=== PATIENT | male | born 1960 | race Caucasian/White ===

== ENCOUNTER 2025-03-09 08:01 | Outpatient (OUT) | payer BC, SELFPAY ==
--- OUTSIDE RECORDS SUMMARY | 2025-03-09 08:09 | XMS_ITS | Clinical Summary ---
Author Organization [facility] Address [address], [address] [place] [address] Care Team Providers Care Fire Protection Designer Name Role Phone Sanjiv Mast DP Primary Care Provider Allergies Active Allergy Reactions Criticality Noted Date Comments Penicillins 05/04/2019 Medications celecoxib (CELEBREX) 100 MG capsule Take 1 capsule by mouth 2 times daily 60 capsule 01/15/2018 Active cyclobenzaprine (FLEXERIL) 10 MG tablet Take 5 mg by mouth 3 times daily as needed for Muscle spasms Active Social History Tobacco Use Types Packs/Day Years Used Date Smoking Tobacco: Never Smokeless Tobacco: Never Sex and Gender Information Value Date Recorded Sex Assigned at Not on file Legal Sex Male 3:59 PM EDT Gender Identity Not on file Sexual Orientation Not on file Last Filed Vital Signs Vital Sign Reading Time Taken Comments Blood Pressure - - Pulse - - Temperature 36.4 C (97.5 F) 10/31/2020 8:05 AM EDT Respiratory Rate - - Oxygen Saturation - - Inhaled Oxygen Concentration - - Weight 93 kg (205 lb) 10/31/2020 8:05 AM EDT Height 172.7 cm (5' 8 ) 10/31/2020 8:05 AM EDT Body Mass Index 31.17 10/31/2020 8:05 AM EDT Plan of Treatment Not on file Insurance [place] Care Teams Fire Protection Designer Relationship Specialty Start Date End Date Sanjiv Mast DPM [address] [place] [address] PCP - General Podiatry 01/19/17
--- OUTSIDE RECORDS SUMMARY | 2025-03-09 08:09 | XMS_ITS | Encounter Summary ---
Author Organization [facility] Address [address] [facility] [place] [address] Care Team Providers Care Pipe Processor Name Role Phone Seven Santa MD Primary Care Provider [phone] Seven Santa MD Unavailable [phone] Encounter Details Date Type Department Care Team (Late st Contact Info) Description 05/26/2024 [facility] [place] [facility] [address] [facility] 110 [place] [id number] Seven Santa MD 112 [facility] 110 [place] [address] Social History Tobacco Use Types Packs/Day Years Used Date Smoking Tobacco: Never Smokeless Tobacco: Never Alcohol Use Standard Drinks/Week Comments Yes 0 (1 standard drink = 0.6 oz pur e alcohol) Humiliation, Afraid, Rape, and Kick questionnair e Answer Date Recorded Within the last year, have y ou been afraid of your partner or ex-partner? No 06/09/2023 Within the last year, have y ou been humiliated or emotionally abused in other ways by your partner or ex-partner? No Within the last year, have y ou been kicked, hit, slapped, or otherwise physically hurt by your partner or ex-partner? No 06/09/2023 Within the last year, have y ou been raped or forced to have any kind of sexual activity by your partner or ex-partner? No 06/09/2023 Social Connection and Isolation Panel [NHANES] A nswer Date Recorded In a typical week, how many times do you talk on the phone with family, friends, or neighbors? Once a week 06/09/20 How often do you get togethe r with friends or relatives? Never 06/09/2023 How often do you attend chur ch or latter day services? 1 to 4 times per year 06/09/2023 Do you belong to any clubs o r organizations such as christian groups, unions, fraternal or athletic groups, or school groups? No 06/09/2023 How often do you attend meet ings of the clubs or organizations you belong to? Patient declined 06/09/2023 Are you , , di vorced, , never , or living with a partner? 06/09/2023 AUDIT-C Answer Date Recorded Q1: How often do you have a drink containing alc ohol? Monthly or less 11/23/2023 Q2: How many drinks containi ng alcohol do you have on a typical day when you are drinking? 1 or 2 11/23/2023 Q3: How often do you have si x or more drinks on one occasion? Never 11/23/2023 Overall Financial Resource Strain (CARDIA) Answe r Date Recorded How hard is it for you to pa y for the very basics like food, housing, medical care, and heating? Not hard at all 06/09/2023 [facility] [place] of Occupat ional Health - Occupational Stress Questionnaire Answer Date Recorded Do you feel stress - tense, restless, nervous, or anxious, or unable to sleep at night because your mind is troubled all the time - these days? Not at all 06/09/2023 Exercise Vital Sign Answer Date Recorde d On average, how many days pe r week do you engage in moderate to strenuous exercise (like a brisk walk)? 2 days 06/09/2023 On average, how many minutes do you engage in exercise at this level? 10 min 06/09/2023 Hunger Vital Sign Answer Date Recorded Within the past 12 months, y ou worried that your food would run out before you got the money to buy more. Never true 06/09/20 Within the past 12 months, t he food you bought just didn't last and you didn't have money to get more. Never true 06/09/2023 PRAPARE - Transportation Answer Date Re corded In the past 12 months, has l ack of transportation kept you from medical appointments or from getting medications? No 05/12 In the past 12 months, has l ack of transportation kept you from meetings, work, or from getting things needed for daily living? No 06/09/2023 Housing Stability Vital Sign Answer Mauro e Recorded In the last 12 months, was t here a time when you were not able to pay the mortgage or rent on time? No 06/09/2023 In the last 12 months, how many places have you lived? 1 06/09/2023 In the last 12 months, was t here a time when you did not have a steady place to sleep or slept in a jail (including now)? No 06/09/2023 Sex and Gender Information Value Date Recorded Sex Assigned at Not on file Legal Sex Male 6:40 PM EDT Gender Identity Not on file Sexual Orientation Not on file documented as of this encounter Plan of Treatment Upcoming Encounters Date Type Department Care Team (Late st Contact Info) Description 03/27/2025 1:15 PM EDT Office Visit [facility] [address] [place] [address] Saji Haywood DO [address] [place] [address] 08/07/2025 4:30 PM EST Office Visit [facility] [place] [facility] [address] [facility] 110 [place] [address] Seven Santa MD [address] [place] [address] documented as of this encounter Visit Diagnoses Not on filedocumented in this encounter Care Teams Pipe Processor Relationship Specialty Start Date End Date Seven Santa MD [address] [place] [address] PCP - General Internal Medicine 12/16/22 Seven Santa MD [address] [place] [address] PCP - [place] [employer] 11/08/24 documented as of this encounter
--- OUTSIDE RECORDS SUMMARY | 2025-03-09 08:09 | XMS_ITS | Encounter Summary ---
Author Organization [facility] Address [address] [facility] [place] [address] Care Team Providers Care Straightener And Aligner Name Role Phone Seven Santa MD Primary Care Provider [phone] Seven Santa MD Unavailable [phone] Encounter Details Date Type Department Care Team (Late st Contact Info) Description 07/06/2024 Abstract [facility] [place] [facility] [address] [facility] 110 [place] [phone] Seven Santa MD 112 [facility] 110 [place] [address] Social History Tobacco Use Types Packs/Day Years [...] often do you attend chur ch or worship services? 1 to 4 times per year 06/09/2023 Do you belong to any clubs o r organizations such as restorationist groups, unions, fraternal or athletic groups, or [...] and heating? Not hard at all 06/09/2023 [facility] [place] of Occupat ional Health - Occupational Stress [...] place to sleep or slept in a halfway (including now)? No 06/09/2023 Sex and Gender [...] Office Visit [facility] [address] [place] [address] Saji Haywood DO [address] [place] [address] 08/07/2025 4:30 PM EST Office Visit [facility] [place] [facility] [address] [email or web address] 110 [place] [address] Seven Santa MD [address] [place] [address] documented as of this encounter Visit Diagnoses Not on filedocumented in this encounter Care Teams Straightener And Aligner Relationship Specialty Start Date End Date Seven Santa MD [address] [place] [address] PCP - General Internal Medicine 12/16/22 Seven Santa MD [address] [place] [address] PCP - [place] [employer] 11/08/24 documented as of this encounter
--- OUTSIDE RECORDS SUMMARY | 2025-03-09 08:09 | XMS_ITS | Encounter Summary ---
Author Organization [facility] Address [address] [facility] [place] [address] Care Team Providers Care Development Mechanic Name Role Phone Seven Santa MD Primary Care Provider [phone] Seven Santa MD Unavailable [phone] Encounter Details Date Type Department Care Team (Late st Contact Info) Description 07/06/2024 Abstract [facility] [place] [facility] [address] [facility] 110 [place] [phone] Seven Santa MD 112 [facility] 110 [place] [address] Social History Tobacco Use Types Packs/Day Years [...] often do you attend chur ch or christianity services? 1 to 4 times per year 06/09/2023 Do you belong to any clubs o r organizations such as presybeterian groups, unions, fraternal or athletic groups, or [...] and heating? Not hard at all 06/09/2023 [facility] [place] of Occupat ional Health - Occupational Stress [...] place to sleep or slept in a skilled nursing (including now)? No 06/09/2023 Sex and Gender [...] Office Visit [facility] [address] [place] [address] Saji Haywood DO [address] [place] [address] 08/07/2025 4:30 PM EST Office Visit [facility] [place] [facility] [address] [facility] 110 [place] [address] Seven Santa MD [address] [place] [address] documented as of this encounter Visit Diagnoses Not on filedocumented in this encounter Care Teams Development Mechanic Relationship Specialty Start Date End Date Seven Santa MD [address] [place] [address] PCP - General Internal Medicine 12/16/22 Seven Santa MD [address] [place] [address] PCP - [place] [employer] 11/08/24 documented as of this encounter
--- OUTSIDE RECORDS SUMMARY | 2025-03-09 08:09 | XMS_ITS | Encounter Summary ---
Author Organization [facility] Address [address] [facility] [place] [address] Care Team Providers Care Shirt Sorter Name Role Phone Seven Santa MD Primary Care Provider [phone] Seven Santa MD Unavailable [phone] Encounter Details Date Type Department Care Team (Late st Contact Info) Description 07/06/2024 Abstract [facility] [place] [facility] [address] [facility] 110 [place] [phone] Seven Santa MD 112 [facility] 110 [place] [address] Social History Tobacco Use Types Packs/Day Years [...] often do you attend chur ch or presybeterian services? 1 to 4 times per year 06/09/2023 Do you belong to any clubs o r organizations such as cheondoism groups, unions, fraternal or athletic groups, or [...] and heating? Not hard at all 06/09/2023 [facility] [place] of Occupat ional Health - Occupational Stress [...] place to sleep or slept in a care home (including now)? No 06/09/2023 Sex and Gender [...] Office Visit [facility] [address] [place] [address] Saji Haywood DO [address] [place] [address] 08/07/2025 4:30 PM EST Office Visit [facility] [place] [facility] [address] [facility] [address] [place] [address] Seven Santa MD [address] [place] [address] documented as of this encounter Visit Diagnoses Not on filedocumented in this encounter Care Teams Shirt Sorter Relationship Specialty Start Date End Date Seven Santa MD [address] [place] [address] PCP - General Internal Medicine 12/16/22 Seven Santa MD [address] [place] [address] PCP - [place] [employer] 11/08/24 documented as of this encounter
--- OUTSIDE RECORDS SUMMARY | 2025-03-09 08:09 | XMS_ITS | Clinical Summary ---
Author Organization 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 2 Active levothyroxine (SYNTHROID) 137 mcg tablet TAKE 1 TABLET BY MOUTH EVERY DAY IN THE MORNING ON EMPTY STOMACH 2 Active folic acid/multivit-min/ lutein (CENTRUM SILVER ORAL) Take by mouth once daily. Active KRILL OIL ORAL Take 1,000 mg by mouth once daily. Active alpha lipoic acid 600 mg tabIndications:Fac et syndrome, lumbar,Radiculopat hy, lumbosacral region,History of renal stone,Other hypothyroidism take 1 tab po every day with food 30 tablet 11 3 Active turmeric root extract 500 mg capIndications:Fac et syndrome, lumbar,Radiculopat hy, lumbosacral region,History of renal stone,Other hypothyroidism TAKE 1 CAPSULE BY MOUTH TWICE DAILY FOR 7 DAYS,THEN 2 CAPSULES TWICE DAILY IF TOLERATED 120 capsule 11 4 Active Active Problems Problem Noted Date Diagnosed Date Facet syndrome, lumbar 02/24/2022 Radiculopathy, lumbosacral region 02/24/2022 Lumbosacral spondylosis without myelopathy 02/24 Social History Tobacco Use Types Packs/Day Years Used Date Smoking Tobacco: Never Smokeless Tobacco: Never Alcohol Use Standard Drinks/Week Comments Never 0 (1 standard drink = 0.6 oz pur e alcohol) Area Deprivation Index Answer Date Lavon rded National Score (1-100), lower number is lower ri sk 65 01/15/2023 State Score (1-10), lower number is lower risk 5 01/15/2023 Data from: https://www.neighborhoodatlas.medicine.[facility]/. Last address used for calculation [address] 01/15/2023 Sex and Gender Information Value Date Recorded Sex Assigned at Not on file Legal Sex Male 10:13 AM EDT Gender Identity Not on file Sexual Orientation Not on file Last Filed Vital Signs Vital Sign Reading Time Taken Comments Blood Pressure 123/85 09/01/2022 9:30 AM EST Pulse 83 11/27/2022 4:06 PM EDT Temperature 36.3 C (97.4 F) 09/01/2022 9:10 AM EST Respiratory Rate 17 11/27/2022 4:06 PM EDT Oxygen Saturation 97% 11/27/2022 4:06 PM EDT Inhaled Oxygen Concentration - - Weight 87.5 kg (193 lb) 11/27/2022 4:06 PM EDT Height - - Body Mass Index - - Plan of Treatment Health Maintenance Due Date Last Done Comments Anxiety Screening 1977 Depression Screening 1977 HIV Screening 1977 Hepatitis C Screening 1977 CT Colonography 2004 Colonoscopy 2004 Fecal Occult Blood 2004 Sigmoidoscopy 2004 Pneumococcal Vaccine: 50+ (2 of 2 - PCV) 08/20/2017 08/20/2016 Cologuard (FIT-DNA) 10/09/2023 10/08/2020 Colorectal Cancer Screening 10/09/2023 Advance Directive Discussion 08/10/2024 Influenza Vaccine (#1) 2025 , 07/06/2019, 05/19/2018, Additional history exists Diabetes Screening 05/07/2025 05/07/2022, 01/02/2020 Lipid Screening 06/15/2028 06/15/2023 Prostate Cancer Screening Discussion 06/15/2028 06/15/2023 DTaP,Tdap,Td Vaccine (4 - Td or Tdap) 05/04/2033 05/04/2023, 09/28/2017, 03/04/2017 RSV Vaccine (1 - 1-dose 75+ series) 2034 Shingrix Vaccine Completed 08/21/2019, 08/2018, 11/15/2016 Insurance BLUE CARD PPO OOS Care Teams Mechanical Specialist Relationship Specialty Start Date End Date Seven Santa II, MD [address] [facility] 110 [place] [address] PCP - General Internal Medicine 12/27/21
--- OUTSIDE RECORDS SUMMARY | 2025-03-09 08:09 | XMS_ITS | Encounter Summary ---
Author Organization [facility] Address [address] [address] Care Team Providers Care Rail Car Repairer Name Role Phone Seven Santa MD Primary Care Provider [phone] Encounter Details Date Type Department Care Team (Late st Contact Info) Description 02/22/2025 Telephone [facility] [address] [place] [address] Mi Quiroz MA Social History Tobacco Use Types Packs/Day Years Used Date Smoking Tobacco: Never Smokeless Tobacco: Never Alcohol Use Standard Drinks/Week Comments Yes 0 (1 standard drink = 0.6 oz pur e alcohol) weekends in summer Sex and Gender Information Value Date Recorded Sex Assigned at Male 02/15/2025 11:52 AM EDT Legal Sex Male 4:16 PM EDT Gender Identity Male 02/15/2025 11:52 AM EDT Sexual Orientation Heterosexual or Straight 04/2025 11:52 AM EDT documented as of this encounter Miscellaneous Notes * Telephone Encounter - Mi Quiroz MA - 02/23/2025 1:43 PM EDT Patient made aware. * Telephone Encounter - Mi Quiroz MA - 02/22/2025 8:37 AM EDT Patient called and said he forgot to ask you yesterday what you thought about him possibly startingCialis. He's been discussing options with his PCP but wanted to see what your thoughts were. I toldhim you may want to wait and see what his stress test shows first, but I'd ask. Please advise. Thanks. documented in this encounter Plan of Treatment Not on file documented as of this encounter Visit Diagnoses Not on filedocumented in this encounter Care Teams Rail Car Repairer Relationship Specialty Start Date End Date Seven Santa MD [address] [facility] 110 [place] [address] PCP - General Internal Medicine 02/15/25 documented as of this encounter
--- OUTSIDE RECORDS SUMMARY | 2025-03-09 08:09 | XMS_ITS | Clinical Summary ---
Author Organization [facility] [place] [facility] tem Address [id number] [address] [place] [address] Care Team Providers Care Program Director Cable Television Name Role Phone Seven Santa MD Primary Care Provider [phone] Allergies Active Allergy Reactions Criticality Noted Date Comments Penicillins 01/02/2020 Medications levothyroxine (SYNTHROID, LEVOTHROID) 125 MCG tablet Take 137 mcg by mouth daily. Active celecoxib (CeleBREX) 200 mg capsule Take 1 capsule by mouth 2 (two) times a day. 10/04/2020 Active folic acid/multivit-m in/lutein (CENTRUM SILVER ORAL) Take by mouth. Active KRILL OIL ORAL Take 1,000 mg by mouth daily. Active cholecalciferol , vitamin D3, (VITAMIN D3) 2,000 units capsule Take 2,000 Units by mouth daily. Active tiZANidine (ZANAFLEX) 4 mg tablet 1/2-1 tablet as needed 08/06/2021 Active Active Problems Problem Noted Date Diagnosed Date Hyperplastic polyp of sigmoid colon 11/19/2020 Diverticulosis large intesti ne w/o perforation or abscess w/o bleeding 11/19/2020 Positive colorectal cancer screening using Colog uard test 10/25/2020 Encounters Date Type Department Care Team Description 02/07/2025 8:30 AM EDT - 02/07/2025 11:59 PM EDT Hospital Encounter [facility] [address] [place] [id number] Elevated blood pressure reading without diagnosis of hypertension; Newly recognized murmur Discharge Disposition: Home 02/07/2025 Travel from Last 3 Months Family History Medical History Relation Name Comments Asthma Brother Edwar Win No Known Problems Daughter 1 No Known Problems Daughter 2 No Known Problems Daughter 3 No Known Problems Daughter 4 Heart disease Father Thyroid disease Father Coronary artery disease Mother Glaucoma Mother Heart disease Mother Hyperlipidemia Mother Relation Name Status Comments [place] Win Alive Daughter 1 Alive Daughter 2 Alive Daughter 3 Alive Daughter 4 Alive Father Alive Mother Sister Alive Social History Tobacco Use Types Packs/Day Years Used Date Smoking Tobacco: Never Smokeless Tobacco: Never Alcohol Use Standard Drinks/Week Comments Yes 0 (1 standard drink = 0.6 oz pur e alcohol) socially on weekends only Childcare Answer Date Recorded Childcare Unknown 01/19/2019 Employment Answer Date Recorded Employment Unknown 01/19/2019 Purpose - Life Answer Date Recorded Purpose and direction in life Unknown Sex and Gender Information Value Date Recorded Sex Assigned at Not on file Legal Sex Male 11:37 AM EDT Gender Identity Not on file Sexual Orientation Not on file Last Filed Vital Signs Vital Sign Reading Time Taken Comments Blood Pressure 137/88 05/07/2022 12:00 PM EDT Pulse 69 05/07/2022 12:00 PM EDT Temperature 37 C (98.6 F) 05/07/2022 8:41 AM EDT Respiratory Rate 11 05/07/2022 12:00 PM EDT Oxygen Saturation 98% 05/07/2022 12:00 PM EDT Inhaled Oxygen Concentration - - Weight 88.5 kg (195 lb) 05/07/2022 8:28 AM EDT Height 172.7 cm (5' 8 ) 05/07/2022 8:28 AM EDT Body Mass Index 29.65 05/07/2022 8:28 AM EDT Plan of Treatment Health Maintenance Due Date Last Done Comments Depression Screening 1972 Tobacco Screening 1972 Adult BMI Screening 05/07/2023 05/07/2022 COVID-19 Vaccine (2023- 5 season) 2024 08/30/2021, 11/16/2020, 10/19/2020 Fall Risk Screening 2024 Influenza Vaccine 04/10/2025 05/20/2021, , 05/19/2018, Additional history exists Colonoscopy 11/12/2030 11/12/2020, 11/12/2020 DTaP,Tdap and Td Vaccines (4 - Td or Tdap) 05/04/2033 05/04/2023, 09/28/2017, 03/04/2017 Zoster (Shingles) Vaccine Completed 2019, 07/10/2019, 11/15/2016 Medical Devices Implanted Type Area Watch And Clock Repair Clerk Device Identifier Shelf Expiration Date Model / Serial / Lot Mesh 3in Lg Pp Srgpro Nabsb Knit Plg Srg Strl Clr Hrn Rpl [id number] - [id number] - [id number] Implanted:Qty: 1 on 06/03/2021 by Graham Hanson MD at [facility] Mesh Left: Abdomen [employer] [facility] 01/07/2026 SMPL-01 / [id number] / [id number] Mesh 4.7x3in Plstr Parietex Progrip Lt Flp Slf Fx - [id number] - [id number] Implanted:Qty: 1 on 06/03/2021 by Graham Hanson MD at [facility] Mesh Left: Abdomen [employer] [facility] 04/09/2025 [id number] / [id number] / [id number] Procedures Procedure Name Priority Date/Time Associated Diagnosis Comments ECHO COMPLETE WO CONTRAST Routine 02/07/2025 9:09 AM EDT Elevated blood pressure reading without diagnosis of hypertension Newly recognized murmur from Last 3 Months Results * Echo complete W/O contrast (02/07/2025 9:09 AM EDT) LVOT stroke volume 67.66 ml XCELERA LV Systolic Volume 43.60 mL XCELERA EF 62 % XCELERA FS 30 28 - 44 % XCELERA LV Diastolic Volume 116.00 mL XCELERA LVIDd 4.40 cm XCELERA LVIDs 3.10 cm XCELERA IVS 1.20 0.6 - 1.1 cm XCELERA PW 1.20 0.6 - 1.1 cm XCELERA LVOT diameter 2.20 cm XCELERA TDI 9.36 cm/s XCELERA MV TDI E' (medial) 6.20 cm/s XCELERA LA Volume Index 25.5 mL/m2 XCELERA E/A ratio 1.14 XCELERA E wave deceleration time 201.00 msec XCELERA MV Peak E Maverick 66.50 cm/s XCELERA MV Peak A Maverick 58.20 cm/s XCELERA LA size 3.50 cm XCELERA Aortic root 3.70 cm XCELERA LA volume 52.50 cm3 XCELERA RV diastolic dimension (basal) 33.0 mm XCELERA RVID d 3.7 cm XCELERA TAPSE 2.20 cm XCELERA AV peak maverick 280.00 cm/s XCELERA LVOT peak maverick 0.78 m/s XCELERA AV VTI 64.10 cm XCELERA LVOT peak VTI 17.80 cm XCELERA AV mean gradient 16.00 mmHg XCELERA AV peak gradient 31.00 mmHg XCELERA AV valve area 1.06 cm2 XCELERA Valve area - Index 0.5 XCELERA MV pressure 1/2 time 59.00 ms XCELERA MV valve area p 1/2 method 3.73 cm2 XCELERA TR Peak Maverick 1.8 m/s XCELERA TR peak gradient 13.40 mmHg XCELERA PV mean gradient 3.00 mmHg XCELERA PV peak gradient 5.66 mmHg XCELERA LV ESV A2C 64.90 mL XCELERA LV ESV A4C 38.70 mL XCELERA LV RWT 2D 54.55 XCELERA Echo EF Estimated 62 % XCELERA AV Velocity Ratio 0.29 XCELERA Left Ventricle Mass 191.88860 462423198 8 g XCELERA Interventricular Septum Diastolic Thickness by 2D 12 cm XCELERA Left ventricular stroke volume 68.00 cc XCELERA TR max maverick 1.80 m/s XCELERA E/E' ratio 8.50 XCELERA MV E' average 7.8 cm/s XCELERA Est. RA pressure 3 mmHg XCELERA RA area 12.8 cm2 XCELERA PM CV 2.0 ECHO AV LLUVIA (CONTINUITY EQUATION) 1.0 cm2 XCELERA Anatomical Region Laterality Modality Chest N/A Ultrasound Narrative 02/07/2025 11:04 AM EDT Left Ventricle: Left ventricle appears normal in size. Systolic function is normal with an ejection fraction of 60-65%. The quantitative EF by 2D Lewis biplane is 62%. Normal diastolic function is present. Right Ventricle: Right ventricular size appears normal. Systolic function is normal. Aortic Valve: The aortic valve is trileaflet. The leaflets are moderately calcified. There is mild regurgitation. There is mild stenosis. The calculated aortic valve area is 1.06 cm2. The calculated aortic valve peak gradient is 31.00 mmHg. The calculated aortic valve mean gradient is 16.00 mmHg. Tricuspid Valve: There is trace to mild regurgitation. There is no evidence of tricuspid valve stenosis. Aorta: The ascending aorta is mildly dilated (4.1 cm). Left Ventricle Left ventricle appears normal in size. There is mild concentric increased wall thickness/hypertrophy. Systolic function is normal with an ejection fraction of 60-65%. The quantitative EF by 2D Lewis biplane is 62%. No obvious regional wall motion abnormalities. Normal diastolic function is present. Lateral E' is 9.36 cm/s. Medial E' is 6.20 cm/s. Average E' is 7.8 cm/s. Right Ventricle Right ventricular size appears normal. The right ventricular basal diameter is 33.0 mm. Systolic function is normal. Normal tricuspid annular plane systolic excursion. Normal systolic excursion velocity by TDI (>9.5 cm/s). Left Atrium Left atrium volume index is normal. The left atrial volume index is 25.5 mL/m2. Right Atrium Right atrium is normal in size. The right atrial area is 12.8 cm2. IVC/SVC The right atrial pressure is estimated at 3 mmHg. There is normal collapse with deep inspiration. Mitral Valve The leaflets are moderately thickened. There is trace regurgitation. There is no evidence of mitral valve stenosis. Tricuspid Valve Tricuspid valve appears to be normal. There is trace to mild regurgitation. There is no evidence of tricuspid valve stenosis. Insufficient regurgitant jet to assess right ventricular systolic pressure. RVSP is based on RA pressure of 3 mmHg. Aortic Valve The aortic valve is trileaflet. The leaflets are moderately calcified. There is mild regurgitation. There is mild stenosis. The calculated aortic valve area is 1.06 cm2. The calculated aortic valve peak gradient is 31.00 mmHg. The calculated aortic valve mean gradient is 16.00 mmHg. RCC excursion is moderately reduced. Pulmonic Valve The pulmonic valve was not well visualized. Pulmonic valve structure is grossly normal. There is trace regurgitation. There is no evidence of pulmonic valve stenosis. The peak gradient is 5.66 mmHg. The mean gradient is 3.00 mmHg. Ascending Aorta The ascending aorta is mildly dilated (4.1 cm). Pericardium The pericardium has a fat pad. Study Details A complete echo was performed using complete 2D, color flow Doppler and spectral Doppler. Overall the study quality was adequate. BP 141/91 Wall Scoring Baseline Score Index: 1.00 The left ventricular wall motion is normal. us Maria De Jesus LAWRENCE CV ECHO ORDERABLES Final Result from Last 3 Months Insurance [address] [place] [address] ANTHEM Care Teams Program Director Cable Television Relationship Specialty Start Date End Date Seven Santa MD 112 [facility] [address] [place] [address] PCP - General Internal Medicine 05/21/21
--- OUTSIDE RECORDS SUMMARY | 2025-03-09 08:09 | XMS_ITS | Encounter Summary ---
Author Organization [facility] Address [address] [facility] [place] [address] Care Team Providers Care Diabetes Trainer Name Role Phone Seven Santa MD Primary Care Provider [phone] Seven Santa MD Unavailable [phone] Encounter Details Date Type Department Care Team (Late st Contact Info) Description 07/06/2024 Abstract [facility] [place] [facility] [address] [facility] 110 [place] [phone] Seven Santa MD 112 [facility] 110 [place] [address] Social History Tobacco Use Types Packs/Day Years [...] often do you attend chur ch or spiritism services? 1 to 4 times per year 06/09/2023 Do you belong to any clubs o r organizations such as muslim groups, unions, fraternal or athletic groups, or [...] and heating? Not hard at all 06/09/2023 [facility] [place] of Occupat ional Health - Occupational Stress [...] place to sleep or slept in a intermediate (including now)? No 06/09/2023 Sex and Gender [...] Office Visit [facility] [address] [place] [address] Saji Haywood DO [address] [place] [address] 08/07/2025 4:30 PM EST Office Visit [facility] [place] [facility] [address] [facility] [address] [place] [address] Seven Santa MD [address] [place] [address] documented as of this encounter Visit Diagnoses Not on filedocumented in this encounter Care Teams Diabetes Trainer Relationship Specialty Start Date End Date Seven Santa MD [address] [place] [address] PCP - General Internal Medicine 12/16/22 Seven Santa MD [address] [place] [address] PCP - [employer] 11/08/24 documented as of this encounter
--- OUTSIDE RECORDS SUMMARY | 2025-03-09 08:09 | XMS_ITS | Encounter Summary ---
Author Organization [facility] Address [address] [facility] [place] [address] Care Team Providers Care Insurance Marketing Rep Name Role Phone Seven Santa MD Primary Care Provider [phone] Seven Santa MD Unavailable [phone] Encounter Details Date Type Department Care Team (Late st Contact Info) Description 11/17/2023 Abstract [facility] [place] [facility] [address] [facility] 110 [place] [phone] Seven Santa MD 112 [facility] 110 [place] [address] Social History Tobacco Use Types Packs/Day Years Used Date Smoking Tobacco: Never Assessed Humiliation, Afraid, Rape, and Kick questionnair e [...] friends, or neighbors? Once a week 06/09/20 23 How often do you get togethe r with friends or relatives? Never 06/09/2023 How often do you attend chur ch or zoroastrian services? 1 to 4 times per year 06/09/2023 Do you belong to any clubs o r organizations such as anglican groups, unions, fraternal or athletic groups, or school groups? No 06/09/2023 How often do you attend meet ings of the clubs or organizations you belong to? Patient declined 06/09/2023 Are you , , di vorced, , never , or living with a partner? 06/09/2023 AUDIT-C Answer Date Recorded Q1: How often do you have a drink containing alc ohol? Monthly or less 06/09/2023 Q2: How many drinks containi ng alcohol do you have on a typical day when you are drinking? 3 or 4 06/09/2023 Q3: How often do you have si x or more drinks on one occasion? Never 06/09/2023 Overall Financial Resource Strain (CARDIA) Answe r Date Recorded How hard is it for you to pa y for the very basics like food, housing, medical care, and heating? Not hard at all 06/09/2023 [facility] of Occupat ional Health - Occupational Stress [...] money to buy more. Never true 06/09/20 23 Within the past 12 months, t he [...] place to sleep or slept in a mcc (including now)? No 06/09/2023 Sex and Gender Information Value Date Recorded Sex Assigned at Not on file Legal Sex Male 6:40 PM EDT Gender Identity Not on file Sexual Orientation Not on file documented as of this encounter Plan of Treatment Upcoming Encounters Date Type Department Care Team (Late st Contact Info) Description 03/27/2025 1:15 PM EDT Office Visit [facility] [address] [place] [address] Saji Haywood, DO [address] [place] [address] 08/07/2025 4:30 PM EST Office Visit [facility] [address] [facility] [address] [place] [address] Seven Santa MD [address] [facility] 110 [place] [address] documented as of this encounter Visit Diagnoses Not on filedocumented in this encounter Care Teams Insurance Marketing Rep Relationship Specialty Start Date End Date Seven Santa MD [address] [place] [address] PCP - General Internal Medicine 12/16/22 Seven Santa MD [address] [place] [address] PCP - [place] [employer] 11/08/24 documented as of this encounter
--- OUTSIDE RECORDS SUMMARY | 2025-03-09 08:10 | XMS_ITS | Encounter Summary ---
Author Organization [facility] Address [address] [place] [address] Care Team Providers Care Tunnel Heading Inspector Name Role Phone Seven Santa MD Primary Care Provider [phone] Seven Santa MD Unavailable [phone] Encounter Details Date Type Department Care Team (Late st Contact Info) Description 01/30/2025 External Result Encounter [facility] External Department Unsolicited Saji Haywood, DO [address] [place] [address] Social History Tobacco Use Types Packs/Day Years Used Date Smoking Tobacco: Never Smokeless Tobacco: Never Alcohol Use Standard Drinks/Week Comments Yes 0 (1 standard drink = 0.6 oz pur e alcohol) B1300 Health Literacy Answer Date Recor ded How often do you need to hav e someone help you when you read instructions, pamphlets, or other written material from your doctor or pharmacy? Never 09/14/2024 Humiliation, Afraid, Rape, and Kick questionnair e [...] or ex-partner? No 06/09/2023 Social Connection and Isolat ion Panel [NHANES] Answer Date Recorded In a typical week, how many times do you talk on the phone with family, friends, or neighbors? More than three times a week 09/14/2024 How often do you get togethe r with friends or relatives? Once a week 09/14/2024 How often do you attend chur or buddhism services? Patient declined 09/14/2024 Do you belong to any clubs o r organizations such as orthodox groups, unions, fraternal or athletic groups, or school groups? No 09/14/2024 How often do you attend meet ings of the clubs or organizations you belong to? Never 09/14/2024 Are you , , di vorced, , never , or living with a partner? 09/14/2024 AUDIT-C Answer Date Recorded Q1: How often do you have a drink containing alc ohol? Monthly or less 09/14/2024 Q2: How many drinks containi ng alcohol do you have on a typical day when you are drinking? 1 or 2 09/14/2024 Q3: How often do you have si x or more drinks on one occasion? Never 09/14/2024 Overall Financial Resource Strain (CARDIA) Answe r Date Recorded How hard is it for you to pa y for the very basics like food, housing, medical care, and heating? Not hard at all 09/14/2024 PHQ-2 Answer Date Recorded Patient Health Questionnaire-2 Score 0 01/10/2025 [facility] of Occupat ional [facility] - Occupational Stress Questionnaire Answer Date Recorded Do you feel stress - tense, restless, nervous, or anxious, or unable to sleep at night because your mind is troubled all the time - these days? Not at all 09/14/2024 Exercise Vital Sign Answer Date Recorde d On average, how many days pe r week do you engage in moderate to strenuous exercise (like a brisk walk)? 5 days On average, how many minutes do you engage in exercise at this level? Patient declined 09/14/2024 Hunger Vital Sign Answer Date Recorded Within the past 12 months, y ou worried that your food would run out before you got the money to buy more. Never true 09/14/19 25 Within the past 12 months, t he food you bought just didn't last and you didn't have money to get more. Never true 09/14/2024 PRAPARE - Transportation Answer Date Re corded In the past 12 months, has l ack of transportation kept you from medical appointments or from getting medications? No 12/2024 In the past 12 months, has l ack of transportation kept you from meetings, work, or from getting things needed for daily living? No 09/14/2024 Housing Stability Vital Sign Answer Mauro e [...] place to sleep or slept in a prison (including now)? No 06/09/2023 Housing Stability Vital Sign Answer Mauro e Recorded In the last 12 months, was t here a time when you were not able to pay the mortgage or rent on time? No 09/14/2024 In the past 12 months, how m any times have you moved where you were living? 0 09/14/2024 At any time in the past 12 m [facility], were you homeless or living in a prison (including now)? No 09/14/2024 Sex and Gender Information Value Date Recorded Sex Assigned at Not on file Legal Sex Male 6:40 PM EDT Gender Identity Not on file Sexual Orientation Not on file documented as of this encounter Plan of Treatment Upcoming Encounters Date Type Department Care Team (Late st Contact Info) Description 03/27/2025 1:15 PM EDT Office Visit [facility] [address] [place] [address] Saji Haywood, DO [address] [place] [address] 08/07/2025 4:30 PM EST Office Visit [facility] [address] [place] [place] [address] Seven Santa MD 112 [facility] 110 [place] [address] documented as of this encounter Procedures Procedure Name Priority Date/Time Associated Diagnosis Comments ECG 12-LEAD 01/30/2025 10:29 AM EDT documented in this encounter Results * ECG 12 lead (01/30/2025 10:29 AM EDT) 01/30/2025 10:2 9 AM EDT [facility] 01/30/2025 2:12 PM EDT [address] [address] Electrocardiograph Report Signed Patient: Tripp Win MR#: [id number] : 1960 Acct:[id number] Age/Sex: 64 / M ADM Date: 01/30/25 Loc: Room: Type: [facility] Attending Dr: Saji Haywood DO Ordering Provider: Saji Haywood DO Date of Service: 01/30/25 ECG/ECG 12 lead ECG: surgery 02/13 Copies to: Test Reason : Blood Pressure : */* mmHG Vent. Rate : 84 BPM Atrial Rate : 84 BPM P-R Int : 146 ms QRS Dur : 84 ms QT Int : 336 ms P-R-T Axes : 66 51 49 degrees QTcB Int : 397 ms Normal sinus rhythm Normal ECG When compared with ECG of 30-Mar-2017 09:25, No significant change was found Confirmed by Daniel Borjas ([id number]) on 01/30/2025 2:12:17 PM Referred By: Electronically Signed By: Daniel Borjas Transcribed By: MUS Signed By Daniel Borjas MD 01/30/25 1412 Procedure Note Korey Borjas MD - 01/30/[address] [address] Electrocardiograph Report Signed Patient: Tripp Win AMR#: [id number] : [id number]:[id number] Age/Sex: 64 / MADM Date: 01/30/25 Loc: PS Room:Type: [facility] Attending Dr: Saji Haywood DO Ordering Provider: Saji Haywood DO Date of Service: 01/30/25 ECG/ECG 12 lead ECG: surgery 02/13 Copies to: Test Reason : Blood Pressure : */* mmHG Vent. Rate : 84 BPM Atrial Rate : 84 BPM P-R Int : 146 ms QRS Dur : 84 ms QT Int : 336 ms P-R-T Axes : 66 51 49 degrees QTcB Int : 397 ms Normal sinus rhythm Normal ECG When compared with ECG of 30-Mar-2017 09:25, No significant change was found Confirmed by Daniel Borjas ([id number]) on 01/30/2025 2:12:17 PM Referred By: Electronically Signed By: Daniel Borjas Transcribed By: MUS Signed By Daniel Borjas MD 01/30/25 1412 us Saji Haywood DO ECG ORDERABLES Final Resul t [address] [address], documented in this encounter Visit Diagnoses Not on filedocumented in this encounter Care Teams Tunnel Heading Inspector Relationship Specialty Start Date End Date Seven Santa MD [address] [place] [address] PCP - General Internal Medicine 12/16/22 Seven Santa MD [address] [place] [address] PCP - [place] [employer] 11/08/24 documented as of this encounter
--- OUTSIDE RECORDS SUMMARY | 2025-03-09 08:10 | XMS_ITS | Encounter Summary ---
Author Organization [facility] Address [address] [facility] [place] [address] Care Team Providers Care Building Cleaner Name Role Phone Seven Santa MD Primary Care Provider [phone] Seven Santa MD Unavailable [phone] Encounter Details Date Type Department Care Team (Late st Contact Info) Description 07/12/2024 Abstract [facility] [place] [facility] [address] [facility] 110 [place] [address] Seven Santa MD 112 [facility] 110 [place] [address] Social History Tobacco Use Types Packs/Day Years [...] any clubs o r organizations such as sabianist groups, unions, fraternal or athletic groups, or [...] and heating? Not hard at all 06/09/2023 [facility] [place] of Occupat ional Health - Occupational Stress [...] place to sleep or slept in a long-term (including now)? No 06/09/2023 Sex and Gender [...] Office Visit [facility] [address] [place] [address] Saji Haywood DO [address] [place] [address] 08/07/2025 4:30 PM EST Office Visit [facility] [place] [facility] [address] [facility] [address] [place] [address] Seven Santa MD [address] [place] [address] documented as of this encounter Visit Diagnoses Not on filedocumented in this encounter Care Teams Building Cleaner Relationship Specialty Start Date End Date Seven Santa MD [address] [place] [address] PCP - General Internal Medicine 12/16/22 Seven Santa MD [address] [place] [address] PCP - [place] [employer] 11/08/24 documented as of this encounter
--- OUTSIDE RECORDS SUMMARY | 2025-03-09 08:10 | XMS_ITS | Encounter Summary ---
Author Organization [facility] Address [address] [facility] [place] [address] Care Team Providers Care Assembler Dc Field Ring Name Role Phone Seven Santa MD Primary Care Provider [phone] Seven Santa MD Unavailable [phone] Encounter Details Date Type Department Care Team (Late st Contact Info) Description 12/07/2024 Abstract [facility] [place] [facility] [address] [facility] 110 [place] [id number] Seven Santa MD [address] [facility] 110 [place] [address] Social History Tobacco Use Types Packs/Day Years [...] week 09/14/2024 How often do you attend [facility] or [facility] services? Patient declined 09/14/2024 Do you belong to any clubs o r organizations such as amish groups, unions, fraternal or athletic groups, or [...] Date Recorded Patient Health Questionnaire-2 Score 0 12/08/2024 [facility] - Occupational Stress Questionnaire Answer Date [...] place to sleep or slept in a group home (including now)? No 06/09/2023 Housing Stability Vital Sign Answer Mauro e Recorded In the last 12 months, was t here a time when you were not able to pay the mortgage or rent on time? No 09/14/2024 In the past 12 months, how m any times have you moved where you were living? 0 09/14/2024 At any time in the past 12 [facility], were you homeless or living in a group home (including now)? No 09/14/2024 Sex and Gender Information Value Date Recorded Sex Assigned at Not on file Legal Sex Male 6:40 PM EDT Gender Identity Not on file Sexual Orientation Not on file documented as of this encounter Functional Status * Over the past 2 weeks, how often have you been bothered by any of the following problems? Question Answer Date of Assessment Author Little interest or pleasure in doing things Not at all 12/08/2024 8:31 AM ERMIAS MARTINS Feeling down, depressed, or hopeless Not at all 08/2024 8:31 AM ERMIAS MARTINS Patient Health Questionnaire-2 Score 0 08/2024 8:31 AM ERMIAS MARTINS documented as of this encounter Plan of Treatment Upcoming Encounters Date Type Department Care Team (Late st Contact Info) Description 03/27/2025 1:15 PM EDT Office Visit [facility] [address] [place] [address] Saji Haywood, [address] [place] [address] 08/07/2025 4:30 PM EST Office Visit [facility] [place] [facility] [address] [facility] 110 [place] [address] Seven Santa MD [address] [facility] 110 [place] [address] documented as of this encounter Visit Diagnoses Not on filedocumented in this encounter Care Teams Assembler Dc Field Ring Relationship Specialty Start Date End Date Seven Santa MD [address] [facility] 110 [place] [address] PCP - General Internal Medicine 12/16/22 Seven Santa MD [address] [facility] 110 [place] [address] PCP - Beata [employer] 11/08/24 documented as of this encounter
--- OUTSIDE RECORDS SUMMARY | 2025-03-09 08:10 | XMS_ITS | Encounter Summary ---
Author Organization [facility] Address [address] [place] [address] Care Team Providers Care Manager Speech Name Role Phone Kiet VALDES MD, Seven Antony Primary Care Provider [phone] Source Comments In the event this information is protected by the Federal Confidentiality of Alcohol and Drug AbusePatient Records regulations: The Federal rules restrict any use of the information to criminally investigate or prosecute any alcohol or drug abuse patient.[facility] Encounter Details Date Type Department Care Team (Late st Contact Info) Description 07/21/2022 Patient Msg Ambulatory Surgery [address] [place], [place] [id number] Saji Gallagher MD [address] [place] [address] [address] [place], [place] [id number] Social History Tobacco Use Types Packs/Day Years Used Date Smoking Tobacco: Never Smokeless Tobacco: Never Alcohol Use Standard Drinks/Week Comments Never 0 (1 standard drink = 0.6 oz pur e alcohol) Area Deprivation Index Answer Date Lavon rded National Score (1-100), lower number is lower ri sk 53 01/20/2022 State Score (1-10), lower number is lower risk N ot on file 01/20/2022 Data from: https://www.neighborhoodatlas.[facility]/. Last address used for calculation [address] [place] [address] [address] 01/20/2022 Sex and Gender Information Value Date Recorded Sex Assigned at Not on file Legal Sex Male 10:13 AM EDT Gender Identity Not on file Sexual Orientation Not on file COVID-19 Exposure Response Date Recorded In the last 10 days, have yo u been in contact with someone who was confirmed or suspected to have Coronavirus/COVID-19? No / Unsure 07/01/2022 2:17 PM EST documented as of this encounter Plan of Treatment Not on file documented as of this encounter Visit Diagnoses Not on filedocumented in this encounter Care Teams Manager Speech Relationship Specialty Start Date End Date Seven Santa II, MD [address] [facility] 110 [place] [address] PCP - General Internal Medicine 12/27/21 documented as of this encounter
--- OUTSIDE RECORDS SUMMARY | 2025-03-09 08:10 | XMS_ITS | Encounter Summary ---
Author Organization [facility] Address [address] [facility] [place] [address] Care Team Providers Care Construction Project Engineer Name Role Phone Seven Santa MD Primary Care Provider [phone] Seven Santa MD Unavailable [phone] Encounter Details Date Type Department Care Team (Late st Contact Info) Description 12/01/2024 Abstract [facility] [place] [facility] [address] [facility] 110 [place] [phone] Seven Santa MD 112 [facility] 110 [place] [address] Social History Tobacco Use Types Packs/Day Years [...] week 09/14/2024 How often do you attend [facility] or protestant services? Patient declined 09/14/2024 Do you belong to any clubs o r organizations such as congregation groups, unions, fraternal or athletic groups, or [...] Date Recorded Patient Health Questionnaire-2 Score 0 09/14/2024 [facility] Health - Occupational Stress Questionnaire Answer Date [...] place to sleep or slept in a custodial (including now)? No 06/09/2023 Housing Stability Vital Sign Answer Mauro e Recorded In the last 12 months, was t here a time when you were not able to pay the mortgage or rent on time? No 09/14/2024 In the past 12 months, how m any times have you moved where you were living? 0 09/14/2024 At any time in the past 12 m [facility], were you homeless or living in a custodial (including now)? No 09/14/2024 Sex and Gender Information Value Date Recorded Sex Assigned at Not on file Legal Sex Male 6:40 PM EDT Gender Identity Not on file Sexual Orientation Not on file documented as of this encounter Plan of Treatment Upcoming Encounters Date Type Department Care Team (Late st Contact Info) Description 03/27/2025 1:15 PM EDT Office Visit [facility] [place] [facility] [address] [place] [phone] Saji Haywood, [address] [place] [address] 08/07/2025 4:30 PM EST Office Visit [facility] [place] [facility] [address] [facility] 110 [place] [address] Seven Santa MD [address] [facility] 110 [place] [address] documented as of this encounter Visit Diagnoses Not on filedocumented in this encounter Care Teams Construction Project Engineer Relationship Specialty Start Date End Date Seven Santa MD [address] [facility] 110 [place] [address] PCP - General Internal Medicine 12/16/22 Seven Santa MD [address] [facility] [address] [place] [address] PCP - Beata Vásquez 11/08/24 documented as of this encounter
--- OUTSIDE RECORDS SUMMARY | 2025-03-09 08:10 | XMS_ITS | Encounter Summary ---
Author Organization [facility] Address [address] [place] [address] Care Team Providers Care Division Order Technician Name Role Phone Kiet VALDES MD, Seven Antony Primary Care Provider [phone] Source Comments In the event this information is protected by the Federal Confidentiality of Alcohol and Drug AbusePatient Records regulations: The Federal rules restrict any use of the information to criminally investigate or prosecute any alcohol or drug abuse patient.[facility] Encounter Details Date Type Department Care Team (Late st Contact Info) Description 12/25/2021 Patient Msg Pain Management [address] [place], [place] [id number] Saji Gallagher MD [address] [place] [address] [place] [address] Social History Tobacco Use Types Packs/Day Years [...] suspected to have Coronavirus/COVID-19? No / Unsure 12/27/2021 11:23 AM EDT documented as of this encounter Plan of Treatment Not on file documented as of this encounter Visit Diagnoses Not on filedocumented in this encounter Care Teams Division Order Technician Relationship Specialty Start Date End Date Seven Santa II, MD [address] [facility] 110 [place] [address] PCP - General Internal Medicine 12/27/21 documented as of this encounter
--- OUTSIDE RECORDS SUMMARY | 2025-03-09 08:10 | XMS_ITS | Clinical Summary ---
Author Organization [facility] Address [address] [place] [address] Care Team Providers Care Hiv Prevention Specialist Name Role Phone Seven Santa MD Primary Care Provider [phone] Seven Santa MD Unavailable [phone] Allergies Active Allergy Reactions Criticality Noted Date Comments Gabapentin GI intolerance 12/25/2021 sleep paralysis Penicillin G Rash Low 06/08/2023 Medications Krill Oil 300 MG capsule 1 (one) time each day at the same time Active cholecalciferol (Vitamin D-3) 25 MCG (1000 UT) capsule 1 capsule 1 (one) time each day at the same time Active Alpha-Lipoic Acid ER 600 MG tablet sustained-release 24 hour Daily 3 Active levothyroxine (Synthroid, Levoxyl) 137 MCG tabletIndications:A cquired hypothyroidism TAKE 137 MCG BY MOUTH IN THE MORNING. TAKE BEFORE MEALS. 100 tablet 2 4 Active [facility] Turmeric Curcumin 500 MG capsule 4 Active neomycin-polymyxin- dexAMETHasone (Polydex) 3.5-34894-5.1 ointment ophthalmic ointment Apply to both eyes 5 Active celecoxib (CeleBREX) 200 MG capsuleIndications: Lipids blood increased TAKE 1 CAPSULE BY MOUTH TWICE A DAY WITH FOOD 180 capsule 4 5 Active cetirizine-pseudoep hedrine (ZyrTEC-D) 5-120 MG 12 hr tablet Take 1 tablet by mouth at bedtime Active Misc Natural Products (PROSTATE HEALTH PO) Take 2 tablets by mouth in the morning. Active clindamycin (Cleocin) 150 MG capsuleIndications: Obstructive sleep apnea Take 1 capsule (150 mg) by mouth in the morning and 1 capsule (150 mg) in the evening and 1 capsule (150 mg) before bedtime. Do all this for 10 days. 30 capsule 02/24/20 25 Active Problems Problem Noted Date Diagnosed Date Aneurysm of ascending aorta without rupture 09/2024 Overview (02/08/2025): 4.1 cm on 01/2025 ECHO Aortic stenosis, mild 02/08/2025 Nonrheumatic tricuspid valve regurgitation 02/08 Complication of ventilation therapy 07/22/2024 Abnormal gait 06/08/2023 Acquired hypothyroidism 06/08/2023 Cervical radiculopathy due t o degenerative joint disease of spine 06/08/2023 Continuous positive airway pressure dependent Degeneration of lumbar intervertebral disc 06/08 Difficulty walking 06/08/2023 Diverticulosis large intesti ne w/o perforation or abscess w/o bleeding 06/08/2023 Left inguinal hernia 06/08/2023 Leg length inequality 06/08/2023 Mixed hyperlipidemia 06/08/2023 Obstructive sleep apnea (adult) (pediatric) 05/12 Other chronic pain 06/08/2023 Piriformis syndrome of left side 06/08/2023 Post traumatic stress disorder (PTSD) 06/08/2023 Sciatica of left side 06/08/2023 Facet syndrome, lumbar 02/24/2022 Lumbosacral spondylosis without myelopathy 02/24 Hyperplastic polyp of sigmoid colon 11/19/2020 Positive colorectal cancer screening using Colog uard test 10/25/2020 Resolved Problems Problem Noted Date Diagnosed Date Resolved Date Acute right otitis media 02/20/2025 Acute sinusitis 02/20/2025 02/20/2025 Encounters Date Type Department Care Team Description 02/20/2025 2:45 PM EDT Office Visit [facility] [address] [place] [address] Saji Haywood, DO GABINO (obstructive sleep apnea) (Primary Dx) 02/20/2025 Bamboo flowsheet [facility] [place] [facility] [address] [place] [address] Saji Haywood, DO 02/20/2025 Travel 02/13/2025 8:00 AM EDT Procedure Visit [facility] EXT DEP Saji Haywood, DO GABINO (obstructive sleep apnea) (Primary Dx) 02/13/2025 Abstract [facility] [place] [facility] [address] [facility] [address] [place] [address] Seven Santa MD 02/13/2025 Orders Only [facility] [facility] [address] [place] [address] Saji Haywood, DO Obstructive sleep apnea 02/08/2025 Telephone [facility] [place] [address] [place] [address] [facility] [address] [place] [address] Seven Santa MD 02/07/2025 Abstract [facility] [place] [facility] [address] [facility] [address] [place] [address] Seven Santa MD 01/31/2025 Telephone [facility] [place] [facility] [address] [facility] [address] [place] [address] Seven Santa MD 01/30/2025 External Result Encounter NOMS External Department Unsolicited Saji Haywood, DO 01/30/2025 External Result Encounter NOM[facility] External Department Unsolicited Saji Haywood, DO 01/30/2025 External Result Encounter [facility] External Department Unsolicited Saji Haywood, DO 01/23/2025 Telephone [facility] [place] [facility] [address] [place] [address] Seven Engle RN 01/10/2025 2:00 PM EDT Office Visit [facility] [place] [facility] [address] [facility] [address] [place] [address] Maria De Jesus Baltazar PA Obstructive sleep apnea (adult) (pediatric) (Primary Dx); Elevated BP without diagnosis of hypertension; Newly recognized murmur 01/10/2025 Abstract [facility] [place] [facility] [address] [facility] [address] [place] [address] Seven Santa MD 01/10/2025 Bamboo flowsheet [facility] [place] [facility] [address] [facility] [address] [place] [address] Maria De Jesus Baltazar PA 01/10/2025 Travel 01/04/2025 1:45 PM EDT Office Visit [facility] [place] [facility] [address] [place] [address] Saji Haywood, GABINO (obstructive sleep apnea) (Primary Dx); Intolerance of continuous positive airway pressure (CPAP) ventilation 01/04/2025 Bamboo flowsheet [facility] [place] [facility] [address] [place] [address] Saji Haywood, 01/04/2025 Travel 12/26/2024 10:00 AM EDT Procedure Visit [facility] EXT DEP Saji Haywood, GABINO (obstructive sleep apnea) (Primary Dx) 12/15/2024 Refill [facility] [place] [facility] [address] [facility] [address] [place] [address] Seven Santa MD Lipids blood increased 12/08/2024 8:30 AM EDT Office Visit [facility] [place] [facility] [address] [facility] [address] [place] [address] Ramya Ryder, FINANCIAL MANAGEMENT CONSULTANT Bilateral serous otitis media, unspecified chronicity (Primary Dx); Seasonal allergies 12/08/2024 Bamboo flowsheet [facility] [place] [facility] [address] [facility] [address] [place] [address] Ramya Ryder, FINANCIAL MANAGEMENT CONSULTANT 12/08/2024 Travel 12/07/2024 Abstract [facility] [place] [facility] [address] [facility] [address] [place] [address] Seven Santa MD from Last 3 Months Immunizations Immunization Administration Dates Next Due Influenza, injectable, quadrivalent 05/20/2021 Influenza, seasonal, intrade rmal, preservative free 07/06/2019,05/19/2018,07/08/2017 Pneumococcal Polysaccharide PPSV23 08/20/2016 Td (adult), 5 Lf tetanus tox oid, preservative free, adsorbed 09/28/2017 Tdap 05/04/2023,03/04/2017 Zoster, Recombinant 08/21/2019,07/10/2019 Zoster, live 11/15/2016 Family History Medical History Relation Name Comments Heart disease Father Jose Eduardo Guillen Heart disease Mother Linnette Win Relation Name Status Comments Father Jose Eduardo Guillen Alive Mother Linnette Win Social History Tobacco Use Types Packs/Day Years Used Date Smoking Tobacco: Never Smokeless Tobacco: Never Alcohol Use Standard Drinks/Week Comments Not Currently 0 (1 standard drink = 0.6 oz pur e alcohol) Occasionally during summer [id number] Health Literacy Answer Date Recor ded [...] 09/14/2024 How often do you attend chur ch or jew services? Patient declined 09/14/2024 Do you belong to any clubs o r organizations such as yazidism groups, unions, fraternal or athletic groups, or [...] Recorded Patient Health Questionnaire-2 Score 0 01/10/2025 [facility] Occup[facility] ional Health - Occupational [...] any time in the past 12 m [facility], were you homeless or living in a custodial (including now)? No 09/14/2024 Sex and Gender Information Value Date Recorded Sex Assigned at Not on file Legal Sex Male 6:40 PM EDT Gender Identity Not on file Sexual Orientation Not on file Last Filed Vital Signs Vital Sign Reading Time Taken Comments Blood Pressure 128/82 01/10/2025 2:13 PM EDT Pulse 80 01/10/2025 2:13 PM EDT Temperature 37.1 C (98.7 F) 11/23/2023 1:41 PM EDT Respiratory Rate 16 01/10/2025 2:13 PM EDT Oxygen Saturation 95% 01/10/2025 2:13 PM EDT Inhaled Oxygen Concentration - - Weight 88.5 kg (195 lb) 02/20/2025 2:42 PM EDT Height 172.7 cm (5' 8 ) 02/20/2025 2:42 PM EDT Body Mass Index 29.65 02/20/2025 2:42 PM EDT Plan of Treatment Upcoming Encounters Date Type Department Care Team (Late st Contact Info) Description 03/27/2025 1:15 PM EDT Office Visit [facility] [address] [place] [phone] Saji Haywood, DO [address] [place] [address] 08/07/2025 4:30 PM EST Office Visit [facility] [address] [place] [address] [place] [address] Seven Santa MD [address] [facility] [address] [place] [address] Health Maintenance Due Date Last Done Comments CT Colonography 1960 FIT 1960 FOBT 1960 Sigmoidoscopy 1960 Pneumococcal Vaccine: 65+ Ye ars (2 of 2 - PCV) 08/20/2017 08/20/2016 FIT-DNA 10/09/2023 10/08/2020, 10/08/2020 Influenza Vaccine (#1) 2025 , 07/06/2019, 05/19/2018, Additional history exists Colonoscopy 11/12/2030 11/12/2020 Colorectal Cancer Screening 11/12/2030 Procedures Procedure Name Priority Date/Time Associated Diagnosis Comments BASIC METABOLIC PANEL Routine 01/30/2025 10:42 AM EDT CBC WITH AUTO DIFFERENTIAL Routine 01/30/2025 10:42 AM EDT ECG 12-LEAD 01/30/2025 10:29 AM EDT COLONOSCOPY Routine 11/12/2020 12:00 PM EDT LAB COLOGUARD COLON CANCER SCREEN Routine 10/08/2020 from Last 3 Months or Most Recently Relevant to Health Maintenance Results * (ABNORMAL) CBC auto differential (01/30/2025 10:42 AM EDT) WBC 8.0 4.1 - 10.5 [CFU]/mL 01/30/2025 11:00 AM EDT [facility] UNCORRECTED WHITE BLOOD COUNT 8.0 4.1 - 10.5 10*3/uL 01/30/2025 11:00 AM EDT [facility] RBC 4.74 3.90 - 5.60 10*6/uL 01/30/2025 11:00 AM EDT [facility] HEMOGLOBIN 14.2 13.0 - 17.0 g/dL 01/30/2025 11:00 AM EDT [facility] HEMATOCRIT 42.1 38.8 - 50.0 % 01/30/2025 11:00 AM EDT [facility] MCV 88.8 83.5 - 101 fL 01/30/2025 11:00 AM EDT [facility] MCH 30.0 27.5 - 35.2 pg 01/30/2025 11:00 AM EDT [facility] MCHC 33.8 32.5 - 35.6 g/dL 01/30/2025 11:00 AM EDT [facility] RED CELL DISTRIBUTION WIDTH, RDW 14.0 12.0 - 14.8 % 01/30/2025 11:00 AM EDT [facility] PLATELET COUNT 256 150 - 450 10*3/uL 01/30/2025 11:00 AM EDT [facility] MEAN PLATELET VOLUME, MPV 7.3 6.6 - 10.1 fL 01/30/2025 11:00 AM EDT [facility] NEUTROPHILS, % 63.7 . % 01/30/2025 11:00 AM EDT [facility] LYMPHOCYTES, % 18.9 . % 01/30/2025 11:00 AM EDT [facility] MONOCYTE/MACROPHA GE, % 13.1 . % 01/30/2025 11:00 AM EDT [facility] EOSINOPHILS, % 3.6 . % 01/30/2025 11:00 AM EDT [facility] BASOPHILS, % 0.7 . % 01/30/2025 11:00 AM EDT [facility] NRBC 0.1 0 - 0.5 /100{WBC} 01/30/2025 11:00 AM EDT [facility] NEUTROPHILS 5.1 1.8 - 7.7 10*3/uL 01/30/2025 11:00 AM EDT [facility] LYMPHOCYTES 1.5 1.00 - 4.8 10*3/uL 01/30/2025 11:00 AM EDT [facility] MONOCYTES 1.1(H) 0.0 - 0.8 10*3/uL 01/30/2025 11:00 AM EDT [facility] EOSINOPHILS 0.3 0.0 - 0.45 10*3/uL 01/30/2025 11:00 AM EDT [facility] BASOPHILS 0.1 0.0 - 0.2 10*3/uL 01/30/2025 11:00 AM EDT [facility] Blood (Blood) 01/30/2025 10: 42 AM EDT 01/30/2025 10:47 AM EDT Saji Haywood DO LAB BLOOD ORDERABLES Final Result Performing Organization Address [facility]/State/[facility] Co de Phone Number [facility] [address] [id number], [facility] [address] [id number] * Basic metabolic panel (01/30/2025 10:42 AM EDT) Glucose 92 70 - 100 mg/dL 01/30/2025 11:42 AM [facility] Comment: Random Glucose Reference Range is dependent on time and content of last meal. Glucose of more than 200 mg/dL in a nonstressed, ambulatory subject supports the diagnosis of Diabetes Mellitus. ADA recommended reference range BUN 16 7 - 25 mg/dL 01/30/2025 11:42 AM EDT [facility] CREATININE 0.85 0.70 - 1.30 mg/dL [facility] ESTIM[facility] GFR >60.0 01/30/2025 [facility] Sodium 140 136 - 145 mmol/L 01/30/2025 [facility] Potassium, Bld 4.2 3.5 - 5.1 mmol/L 01/30/2025 11:[facility] Chloride 107 98 - 107 mmol/L 01/30/2025 11:42 AM EDT [facility] Carbon Dioxide 28.2 21.0 - 31.0 mmol/L 01/30/2025 11:42 AM EDT [facility] Anion Gap 9.0 6.0 - 15.0 01/30/2025 11:42 AM EDT [facility] Calcium 9.4 8.6 - 10.3 mg/dL 01/30/2025 11:42 AM EDT [facility] Other Topography unknown / Unknown 01/30/2025 10:42 AM EDT 01/30/2025 10:47 AM EDT Saji Haywood DO LAB BLOOD ORDERABLES Final Result Performing Organization Address City/State/[facility] Co de Phone Number [facility] [address] [place] [address], [facility] [address] [place] [address] * ECG 12 lead (01/30/2025 10:29 AM EDT) 01/30/2025 10:2 9 AM EDT Narrative [facility] - 01/30/2025 2:12 PM EDT [facility] [place] [address] [place] [address] Electrocardiograph Report Signed Patient: Tripp Win MR#: [id number] : 1960 Acct:[id number] Age/Sex: 64 / M ADM Date: 01/30/25 Loc: Room: Type: [facility] Attending Dr: Saji Haywood DO [...] change was found Confirmed by Daniel Borjas ([id number]) on 01/30/2025 2:12:17 PM Referred By: Electronically Signed By: Daniel Borjas Transcribed By: MUS Signed By Daniel Borjas MD 01/30/25 1412 Procedure Note Korey Borjas MD - 01/30/2025 [facility] Main [place] [address] [place], [place] [phone] Electrocardiograph Report Signed Patient: Tripp Win AMR#: [id number] : 9Acct:[id number] Age/Sex: 64 / MADM Date: 01/30/25 Loc: Room:Type: [facility] Attending Dr: Saji Haywood DO [...] change was found Confirmed by Daniel Borjas ([id number]) on 01/30/2025 2:12:17 PM Referred By: Electronically Signed By: Daniel Borjas Transcribed By: MUS Signed By Daniel Borjas MD 01/30/25 1412 us Saji Haywood DO ECG ORDERABLES Final Resul t [place] [id number], * Colonoscopy (11/12/2020 12:00 PM EDT) Anatomical Region Laterality Modality Endoscopy 11/12/2020 12:0 0 PM EDT Narrative 11/12/2020 12:00 PM EDT PERFORMED AT [facility] LOCATION:[id number] Procedure Note CONVERSION, GENERIC - 12/24/2022 PERFORMED AT [facility] LOCATION:[id number] us Jose Neumann Pro ENDOSCOPY PROCEDURE ORDERABLES Final Result * (ABNORMAL) Cologuard?? colon cancer screening (10/08/2020) COLOGUARD RESULT REPORTABLE Positive( A) Not Applicable [facility] Comment: It is recommended that a positive Cologuard screen be clinically correlated and followed-up with a structural examination of the colon such as diagnostic colonoscopy. Colonoscopies performed for a positive Cologuard may find as the most clinically significant lesion: colorectal cancer [4.0%], advanced adenoma (including sessile serrated polyps greater than or equal to 1cm diameter) [20%] or non- advanced adenoma [31%]; or no colorectal neoplasia [45%]. These estimates are derived from a prospective cross-sectional screening study of 10,000 individuals at average risk for colorectal cancer who were screened with both Cologuard and colonoscopy. (Table 3, Anila Mata. et al, N Engl J Med 2014;370(14):4141-3075.) The normal value (reference range) for this assay is negative. TEST TYPE: Composite algorithmic analysis of stool DNA-biomarkers with hemoglobin immunoassay. Quantitative values of individual biomarkers are not reportable and are not associated with individual biomarker result reference ranges. PRECAUTIONS AND LIMITATIONS: Cologuard is intended for colorectal cancer screening of adults of either sex, 45 years or older, who are at average-risk for colorectal cancer (CRC). Cologuard has been approved for use by the U.S. FDA. Cologuard may produce a false negative or false positive result. A negative Cologuard test result does not guarantee the absence of CRC or advanced adenoma (pre-cancer). Patients with a negative Cologuard test result should be advised to continue participating in a colorectal cancer screening program. The screening interval for Cologuard is currently recommended at an interval of every 3 years by the [place] [employer] Society and U.S. Multi-Society Task Force. A false positive result occurs when Cologuard produces a positive result, even though a colonoscopy may not find colorectal cancer or precancerous polyps. The performance of Cologuard has been established in a cross sectional study (i.e., single point in time) of average-risk adults aged 50-84. Cologuard performance in patients ages 45 to 49 years was estimated by sub-group analysis of near-age groups. Cologuard performance data in a 10,000 patient pivotal study using colonoscopy as the reference method can be accessed at the following location: www.[employer]x/results. Additional description of the Cologuard test process, warnings and precautions can be found at www.cologuardtest.com. Rx only. 10/08/2020 [facility] YOLANDA VORA Final Result [facility] from Last 3 Months or Most Recently Relevant to Health Maintenance Insurance BCBS Care Teams Hiv Prevention Specialist Relationship Specialty Start Date End Date Seven Santa MD [address] [facility] [address] [place] [address] PCP - General Internal Medicine 12/16/22 Seven Santa MD [address] [facility] [address] [place] [address] PCP - Leonidas Commercial 11/08/24
--- OUTSIDE RECORDS SUMMARY | 2025-03-09 08:10 | XMS_ITS | Encounter Summary ---
Author Organization [facility] Address [address] [facility] [place] [address] Care Team Providers Care Head Start Assistant Teacher Name Role Phone Seven Santa MD Primary Care Provider [phone] Seven Santa MD Unavailable [phone] Encounter Details Date Type Department Care Team (Late st Contact Info) Description 09/16/2024 Abstract [facility] [place] [facility] [address] [facility] 110 [place] [phone] Seven Santa MD [address] [facility] 110 [place] [address] Social History Tobacco Use Types Packs/Day Years [...] How often do you attend [facility] or orthodoxy services? Patient declined 09/14/2024 Do you belong to any clubs o r organizations such as denominational groups, unions, fraternal or athletic groups, or [...] Recorded Patient Health Questionnaire-2 Score 0 09/14/2024 [facility] of Occupat ionct Health - Occupational Stress Questionnaire Answer Date [...] in a long-term (including now)? No 06/09/2023 Housing Stability Vital Sign Answer Mauro e Recorded In the last 12 months, was t here a time when you were not able to pay the mortgage or rent on time? No 09/14/2024 In the past 12 months, how m any times have you moved where you were living? 0 09/14/2024 At any time in the past 12 m [facility], were you homeless or living in a long-term (including now)? No 09/14/2024 Sex and Gender [...] Office Visit [facility] [address] [place] [address] Saji Haywood, [address] [place] [address] 08/07/2025 4:30 PM EST Office Visit [facility] [place] [facility] [address] [facility] [address] [place] [address] Seven Santa MD [address] [facility] [address] [place] [address] documented as of this encounter Visit Diagnoses Not on filedocumented in this encounter Care Teams Head Start Assistant Teacher Relationship Specialty Start Date End Date Seven Santa MD [address] [facility] [address] [place] [address] PCP - General Internal Medicine 12/16/22 Seven Santa MD [address] [facility] [address] [place] [address] PCP - Beata Vásquez 11/08/24 documented as of this encounter
--- OUTSIDE RECORDS SUMMARY | 2025-03-09 08:10 | XMS_ITS | Encounter Summary ---
Author Organization [facility] Address [address] [facility] [place] [address] Care Team Providers Care Revenue Agent Name Role Phone Seven Santa MD Primary Care Provider [phone] Seven Santa MD Unavailable [phone] Encounter Details Date Type Department Care Team (Late st Contact Info) Description 02/07/2025 Abstract [facility] [place] [facility] [address] [facility] 110 [place] [phone] Seven Santa MD [address] [facility] 110 [place] [address] Social History Tobacco Use Types Packs/Day Years [...] week 09/14/2024 How often do you attend [facility] or church services? Patient declined 09/14/2024 Do you belong to any clubs o r organizations such as sikh groups, unions, fraternal or athletic groups, or [...] Recorded Patient Health Questionnaire-2 Score 0 01/10/2025 [facility] of Occupat ionmo Health - Occupational Stress Questionnaire Answer Date [...] place to sleep or slept in a usp (including now)? No 06/09/2023 Housing Stability Vital Sign Answer Mauro e Recorded In the last 12 months, was t here a time when you were not able to pay the mortgage or rent on time? No 09/14/2024 In the past 12 months, how m any times have you moved where you were living? 0 09/14/2024 At any time in the past 12 m [facility], were you homeless or living in a usp (including now)? No 09/14/2024 Sex and Gender [...] Office Visit [facility] [address] [place] [address] Saji Haywood, [address] [place] [address] 08/07/2025 4:30 PM EST Office Visit [facility] [place] [facility] [address] [facility] [address] [place] [address] Seven Santa MD [address] [facility] [address] [place] [address] documented as of this encounter Visit Diagnoses Not on filedocumented in this encounter Care Teams Revenue Agent Relationship Specialty Start Date End Date Seven Santa MD [address] [facility] [address] [place] [address] PCP - General Internal Medicine 12/16/22 Seven Santa MD [address] [facility] [address] [place] [address] PCP - Beata Vásquez 11/08/24 documented as of this encounter
--- OUTSIDE RECORDS SUMMARY | 2025-03-09 08:10 | XMS_ITS | Clinical Summary ---
Author Organization [facility] Address [address] [place] [address] Care Team Providers Care Fish Farm Laborer Name Role Phone Seven Santa MD Primary Care Provider [phone] Allergies Active Allergy Reactions Criticality Noted Date Comments Gabapentin GI intolerance 12/25/2021 sleep paralysis Penicillins Rash,Unknown Low 05/04/2019 Medications alpha lipoic acid 600 mg capsule 600 mg. 07/24/2024 Active celecoxib (CeleBREX) 200 mg capsule Take 1 capsule by mouth twice a day. 10/04/2020 Active cholecalciferol (Vitamin D-3) 25 MCG (1000 UT) capsule 1 capsule. Active levothyroxine (Synthroid, Levoxyl) 137 mcg tablet Take 137 mcg by mouth before breakfast. 11/08/2020 Active Active Problems Problem Noted Date Diagnosed Date Aneurysm of ascending aorta without rupture 09/2024 Overview (02/21/2025): 4.1 cm on 01/2025 ECHO Aortic stenosis, mild 02/08/2025 Nonrheumatic tricuspid valve regurgitation 02/08 Complication of ventilation therapy 07/22/2024 Abnormal gait 06/08/2023 Acquired hypothyroidism 06/08/2023 Cervical radiculopathy due t o degenerative joint disease of spine 06/08/2023 Continuous positive airway pressure dependent Degeneration of lumbar intervertebral disc 06/08 Difficulty walking 06/08/2023 Left inguinal hernia 06/08/2023 Leg length inequality 06/08/2023 Mixed hyperlipidemia 06/08/2023 Other chronic pain 06/08/2023 Piriformis syndrome of left side 06/08/2023 Sciatica of left side 06/08/2023 Post traumatic stress disorder (PTSD) 06/08/2023 Facet syndrome, lumbar 02/24/2022 Lumbosacral spondylosis without myelopathy 02/24 Radiculopathy, lumbosacral region 02/24/2022 Obstructive sleep apnea syndrome 12/03/2020 Overview (02/21/2025): Added automatically from request for surgery [id number] Diverticulosis large intesti ne w/o perforation or abscess w/o bleeding 11/19/2020 Hyperplastic polyp of sigmoid colon 11/19/2020 Positive colorectal cancer screening using Colog uard test 10/25/2020 Encounters Date Type Department Care Team Description 02/22/2025 Telephone [facility] [address] [place] [address] Mi Quiroz MA 02/21/2025 2:45 PM EDT Office Visit [facility] [address] [place] [address] Angel Miranda MD Nonrheumatic aortic valve stenosis (Primary Dx); Nonrheumatic aortic valve insufficiency; JULIAN (dyspnea on exertion) from Last 3 Months Family History Medical History Relation Name Comments CABG Father Coronary artery disease Father Relation Name Status Comments Father Social History Tobacco Use Types Packs/Day Years Used Date Smoking Tobacco: Never Smokeless Tobacco: Never Tobacco Cessation:Counseling Given: Not Answered Alcohol Use Standard Drinks/Week Comments Yes 0 (1 standard drink = 0.6 oz pur e alcohol) weekends in summer Sex and Gender Information Value Date Recorded Sex Assigned at Male 02/15/2025 11:52 AM EDT Legal Sex Male 4:16 PM EDT Gender Identity Male 02/15/2025 11:52 AM EDT Sexual Orientation Heterosexual or Straight 04/2025 11:52 AM EDT Last Filed Vital Signs Vital Sign Reading Time Taken Comments Blood Pressure 138/86 02/21/2025 3:15 PM EDT Pulse 84 02/21/2025 3:15 PM EDT Temperature - - Respiratory Rate - - Oxygen Saturation 99% 02/21/2025 3:15 PM EDT Inhaled Oxygen Concentration - - Weight 86.6 kg (191 lb) 02/21/2025 3:15 PM EDT Height 172.7 cm (5' 8 ) 02/21/2025 3:15 PM EDT Body Mass Index 29.04 02/21/2025 3:15 PM EDT Plan of Treatment Health Maintenance Due Date Last Done Comments CT Colonography 1960 FOBT 1960 Medicare Initial Physical (IPPE) 1960 Sigmoidoscopy 1960 Depression Screening 1971 Pneumococcal Vaccine: 50+ Years (2 of 2 - PCV) 08/20/2017 08/20/2016 FIT 10/08/2021 10/08/2020 FIT-DNA 10/09/2023 10/08/2020 COVID-19 Vaccine ( season) 2024 08/30/2021, 11/16/2020, 10/19/2020 Fall Risk Screening 2024 Influenza Vaccine (#1) 2025 , 07/06/2019, 05/19/2018, Additional history exists Colonoscopy 11/12/2030 11/12/2020 Colorectal Cancer Screening 11/12/2030 Adult Tetanus 05/04/2033 05/04/2023, 09/10, 03/04/2017 Zoster Vaccines Completed 08/21/2019, 08/2018, 11/15/2016 HIB Vaccines Aged Out No longer eligi ble based on patient's age to complete this topic HPV Vaccines Aged Out No longer eligi ble based on patient's age to complete this topic IPV Vaccines Aged Out No longer eligi ble based on patient's age to complete this topic Meningococcal B Vaccine Aged Out No l onger eligible based on patient's age to complete this topic Meningococcal Vaccine Aged Out No barbie ky eligible based on patient's age to complete this topic Rotavirus Vaccines Aged Out No longer eligible based on patient's age to complete this topic [facility] Care Teams Fish Farm Laborer Relationship Specialty Start Date End Date Seven Santa MD 112 [facility] [address] [place] [address] PCP - General Internal Medicine 02/15/25
--- OUTSIDE RECORDS SUMMARY | 2025-03-09 08:10 | XMS_ITS | Encounter Summary ---
Author Organization [facility] Address [address] [facility] [place] [address] Care Team Providers Care Civil Cadd Technician Name Role Phone Seven Santa MD Primary Care Provider [phone] Seven Santa MD Unavailable [phone] Encounter Details Date Type Department Care Team (Late st Contact Info) Description 01/10/2025 Abstract [facility] [place] [facility] [address] [facility] 110 [place] [id number] Seven Santa MD 112 [facility] 110 [place] [address] Social History Tobacco Use Types Packs/Day Years [...] week 09/14/2024 How often do you attend [facility] or anabaptist services? Patient declined 09/14/2024 Do you belong to any clubs o r organizations such as spiritism groups, unions, fraternal or athletic groups, or [...] Recorded Patient Health Questionnaire-2 Score 0 01/10/2025 [facility] of Occupat ionwv Health - Occupational Stress Questionnaire Answer Date [...] place to sleep or slept in a fdc (including now)? No 06/09/2023 Housing Stability Vital Sign Answer Mauro e Recorded In the last 12 months, was t here a time when you were not able to pay the mortgage or rent on time? No 09/14/2024 In the past 12 months, how m any times have you moved where you were living? 0 09/14/2024 At any time in the past 12 m [facility], were you homeless or living in a fdc (including now)? No 09/14/2024 Sex and Gender [...] pleasure in doing things Not at all 01/10/2025 2:02 PM EDT Dorothea Faulkner LP N Feeling down, depressed, or hopeless Not at all 01/10/2025 2:02 PM EDT Dorothea Faulkner LP N Patient Health Questionnaire -2 Score 0 01/10/2025 2:02 PM EDT Dorothea Faulkner LP N documented as of this encounter Plan of Treatment Upcoming Encounters Date Type Department Care Team (Late st Contact Info) Description 03/27/2025 1:15 PM EDT Office [facility] [address] [place] [address] Saji Haywood, DO [address] [place] [address] 08/07/2025 4:30 PM EST Office Visit [facility] [address] [place] [address] Seven Santa MD [address] [place] [address] documented as of this encounter Visit Diagnoses Not on filedocumented in this encounter Care Teams Civil Cadd Technician Relationship Specialty Start Date End Date Seven Santa MD [address] [place] [address] PCP - General Internal Medicine 12/16/22 Seven Santa MD [address] [place] [address] PCP - Beata [employer] 11/08/24 documented as of this encounter
--- OUTSIDE RECORDS SUMMARY | 2025-03-09 08:11 | XMS_ITS | Encounter Summary ---
Author Organization [facility] Address [address] [place] [address] Care Team Providers Care Foam Fabricator Name Role Phone Kiet VALDES MD, Seven Antony Primary Care Provider [phone] Source Comments In the event this information is protected by the Federal Confidentiality of Alcohol and Drug AbusePatient Records regulations: The Federal rules restrict any use of the information to criminally investigate or prosecute any alcohol or drug abuse patient.[facility] Encounter Details Date Type Department Care Team (Late st Contact Info) Description 06/29/2023 Get Medical Advice Pain Management [address] [place], [place] [id number] Saji Gallagher MD [address] [place] [address] 6 month follow up appointment type. Social History Tobacco Use Types Packs/Day Years Used Date Smoking Tobacco: Never Smokeless Tobacco: Never Alcohol Use Standard Drinks/Week Comments Never 0 (1 standard drink = 0.6 oz pur e alcohol) Area Deprivation Index Answer Date Lavon rded National Score (1-100), lower number is lower ri sk 65 01/15/2023 State Score (1-10), lower number is lower risk 5 01/15/2023 Data from: https://www.neighborhoodatlas.[facility]/. Last address used for calculation [address] [place] [address] 01/15/2023 Sex and Gender Information Value Date Recorded Sex Assigned at Not on file Legal Sex Male 10:13 AM EDT Gender Identity Not on file Sexual Orientation Not on file documented as of this encounter Plan of Treatment Not on file documented as of this encounter Visit Diagnoses Not on filedocumented in this encounter Care Teams Foam Fabricator Relationship Specialty Start Date End Date Seven Santa II, MD [address] [facility] [address] [place] [address] PCP - General Internal Medicine 12/27/21 documented as of this encounter
--- OUTSIDE RECORDS SUMMARY | 2025-03-09 08:11 | XMS_ITS | Encounter Summary ---
Author Organization [facility] Address [address] [facility] [place] [address] Care Team Providers Care Science And Operations Officer Name Role Phone Seven Santa MD Primary Care Provider [phone] Seven Santa MD Unavailable [phone] Encounter Details Date Type Department Care Team (Late st Contact Info) Description 02/13/2025 Abstract [facility] [place] [facility] [address] [facility] 110 [place] [phone] Seven Santa MD 112 [facility] 110 [place] [address] Social History Tobacco Use Types Packs/Day Years [...] week 09/14/2024 How often do you attend [facility] or zoroastrian services? Patient declined 09/14/2024 Do you belong to any clubs o r organizations such as uatsdin groups, unions, fraternal or athletic groups, or [...] Recorded Patient Health Questionnaire-2 Score 0 01/10/2025 [facility] of Occupat ionde Health - Occupational Stress Questionnaire Answer Date [...] any time in the past 12 m [facility], were you homeless or living in a [...] Office Visit [facility] [address] [place] [address] Saji Haywood, [address] [place] [address] 08/07/2025 4:30 PM EST Office Visit [facility] [place] [facility] [address] [facility] [address] [place] [address] Seven Santa MD [address] [facility] [address] [place] [address] documented as of this encounter Visit Diagnoses Not on filedocumented in this encounter Care Teams Science And Operations Officer Relationship Specialty Start Date End Date Seven Santa MD [address] [facility] [address] [place] [address] PCP - General Internal Medicine 12/16/22 Seven Santa MD [address] [facility] [address] [place] [address] PCP - Beata Vásquez 11/08/24 documented as of this encounter
--- OUTSIDE RECORDS SUMMARY | 2025-03-09 08:11 | XMS_ITS | Encounter Summary ---
Author Organization [facility] Address [address] [place] [address] Care Team Providers Care Atomizer Assembler Name Role Phone Kiet VALDES MD, Seven Antony Primary Care Provider [phone] Source Comments In the event this information is protected by the Federal Confidentiality of Alcohol and Drug AbusePatient Records regulations: The Federal rules restrict any use of the information to criminally investigate or prosecute any alcohol or drug abuse patient.[facility] Encounter Details Date Type Department Care Team (Late st Contact Info) Description 2024 [place] [address] Provider, [facility] Medicare Coverage of Physical Exams Social History Tobacco Use Types Packs/Day Years Used Date Smoking Tobacco: Never Smokeless Tobacco: Never Alcohol Use Standard Drinks/Week Comments Never 0 (1 standard drink = 0.6 oz pur e alcohol) Area Deprivation Index Answer Date Lavon rded National Score (1-100), lower number is lower ri sk 65 01/15/2023 State Score (1-10), lower number is lower risk 5 01/15/2023 Data from: https://www.neighborhoodatlas.medicine.[facility].edu/. Last address used for calculation [address] [place] [address] 01/15/2023 Sex and Gender Information Value Date Recorded Sex Assigned at Not on file Legal Sex Male 10:13 AM EDT Gender Identity Not on file Sexual Orientation Not on file documented as of this encounter Plan of Treatment Not on file documented as of this encounter Visit Diagnoses Not on filedocumented in this encounter Care Teams Atomizer Assembler Relationship Specialty Start Date End Date Seven Santa II, MD [address] [place] [address] PCP - General Internal Medicine 12/27/21 documented as of this encounter
--- NOTE | 2025-03-09 08:20 | NM_ITS ---
Patient Name: YASH ZAYAS MR#: [id number] : 1960 Exam Date: 03/09/2025 Ordering Doctor: DR JORY DENNISON M.D. RADIOLOGY REPORT PROCEDURE: NM ROSE PERF SPECT REST STR COMPARISON: None. INDICATIONS: NONRHEUMATIC AORTIC VALVE STENOSIS, DYSPNEA ON EXERTION TECHNIQUE: Exam Description: Stress/Rest one day protocol gated SPECT Rest Imagin.0 mCi Tc-99m Cardiolite IV on 03/09/2025 Stress Imaging 29.5 mCi Tc-99m Cardiolite IV on 03/09/2025 Exercise Protocol: 0.4 mg Lexiscan given IV Heart Rate (bpm): Rest: 69 Max: 109 PMHR: 70 Blood Pressure: Rest: 147/96 Max: 153/101 Symptoms: Rest and peak stress ECG findings were pending and the ECG portion of the study was pending per attending physician [facility] . For more details please see separate cardiac stress test report. FINDINGS: QUALITY OF STUDY: PERFUSION DEFECT: Good LOCATION: Inferolateral SIZE: Small SEVERITY: Mild TYPE: Reversible WALL MOTION: Normal LV SIZE: 95 mL. TID / TCD: 1.0 LVEF: Calculated EF 55%. SUMMARY: Abnormal myocardial perfusion imaging study CONCLUSION: Abnormal myocardial perfusion stress nuclear test showing evidence of small area of mild inferolateral ischemia Normal left ventricular systolic function, ejection fraction 55% No transient ischemic dilatation, TID 1.0 EKG portion of stress test is reported separately Dictated by: Valerie Smith MD on 03/13/2025 at 10:07 Approved by: Valerie Smith MD on 03/13/2025 at 10:12
--- NOTE | 2025-03-09 10:18 | PC.NURSE ---
Nursing Note Cardiac Stress Test Reviewed: Medication, allergies and patient history reviewed. Stress Test: [x ] Patient tolerated stress test well. [ ] Patient unable to tolerate walking on treadmill. Switched to Lexiscan stress test. [x ] No chest pain noted per patient [ ] Chest pain that resolved prior to leaving stress lab. [x ] No dyspnea noted. [ ] Dyspnea that resolved prior to leaving stress lab. [x ] Patient left stress lab asymptomatic and hemodynamically stable. [ ] Patient taken to the Emergency Room due to non-resolving symptoms following stress test. [ ] Patient achieved target heart rate. [ ] Patient unable to achieve target heart rate. [ ] Aminophylline administered as reversal agent to Lexiscan (Regadenoson). [ ] Nitro administered. Nursing Comments:Pt had Lexiscan test done. Tolerated well no issues noted. Pt ambulated to cafeteria for breakfast prior to second set of images.
[2025-03-09] MEDS: REGADENOSON 0.4 MG/5 ML SYRINGE IV (10:25)
--- NOTE | 2025-03-13 08:40 | PM.STRESS ---
Stress Test Stress Test Requesting physician: Angel Miranda Procedure: This was a Lexiscan stress test with myocardial perfusion imaging performed at the [facility] on 03/09/2025. Intravenous line was secured. The patient was attached to electrocardiographic monitoring. Baseline vital signs and ECG were obtained. Lexiscan 0.4 mg was administered intravenously followed by administration of Cardiolite. The patient then went on to obtain myocardial perfusion imaging. Resting heart rate was 69 bpm and peak heart rate was 109 bpm. Resting blood pressure was 140/88 and peak blood pressure was 153/101. General Information: Reason for Stress Test: Chest pain, shortness of breath. Cardiac History and Risk Factors: None. Resting 12 - Lead Electrocardiogram: Normal sinus rhythm, normal ECG. Stress Test: Protocol: Pharmacologic stress with Lexiscan. Exercise Capacity: Not assessed. Blood Pressure Response: Resting hypertension. Rhythm: Sinus rhythm with occasional PVCs. ST - Response: No ischemic ST changes seen. Patient Response: No symptoms. Interpretation: 1. No evidence of ischemic ECG changes seen following infusion of Lexiscan. 2. Myocardial perfusion images will be reported separately.
== END 2025-03-09 08:02 | disposition home or self-care (01) ==
PROVIDERS: PCP Family Medicine; Visit Provider Internal Medicine Interventional Cardiology
DX: I35.0 Nonrheumatic aortic (valve) stenosis (principal); R06.09 Other forms of dyspnea
CPT/HCPCS: 78452; 93017; A9500; J2785

== ENCOUNTER 2025-03-30 16:36 | Outpatient (OUT) | payer BC, SELFPAY ==
--- OUTSIDE RECORDS SUMMARY | 2025-03-27 13:15 | XMS_ITS | Encounter Summary ---
Author Organization [facility] Address [address] [place] [address] Care Team Providers Care Bale Sewer Name Role Phone Seven Santa MD Primary Care Provider [phone] Seven Santa MD Unavailable [phone] Reason for Visit * Reason Comments Post-op 1 month giuliano Inspire Encounter Details Date Type Department Care Team (Late st Contact Info) Description 03/27/2025 1:15 PM EDT Office Visit [facility] [address] [place] [address] Saji Haywood DO [address] [place] [address] GABINO (obstructive sleep apnea) (Primary Dx) Social History Tobacco Use Types Packs/Day Years Used Date Smoking Tobacco: Never Smokeless Tobacco: Never Tobacco Cessation:Counseling Given: Not Answered Alcohol Use Standard Drinks/Week Comments Not Currently [...] week 09/14/2024 How often do you attend [facility] or mormonism services? Patient declined 09/14/2024 Do you belong to any clubs o r organizations such as methodist groups, unions, fraternal or athletic groups, or [...] Recorded Patient Health Questionnaire-2 Score 0 01/10/2025 [facility] of Occupat ional Health - Occupational Stress [...] place to sleep or slept in a correction (including now)? No 06/09/2023 Housing Stability Vital Sign Answer Mauro e Recorded In the last 12 months, was t here a time when you were not able to pay the mortgage or rent on time? No 09/14/2024 In the past 12 months, how m any times have you moved where you were living? 0 09/14/2024 At any time in the past 12 m [facility], were you homeless or living in a correction (including now)? No 09/14/2024 Sex and Gender Information Value Date Recorded Sex Assigned at Not on file Legal Sex Male 6:40 PM EDT Gender Identity Not on file Sexual Orientation Not on file documented as of this encounter Last Filed Vital Signs Vital Sign Reading Time Taken Comments Blood Pressure - - Pulse - - Temperature - - Respiratory Rate - - Oxygen Saturation - - Inhaled Oxygen Concentration - - Weight 88.5 kg (195 lb) 03/27/2025 1:00 PM EDT Height 172.7 cm (5' 8 ) 03/27/2025 1:00 PM EDT Body Mass Index 29.65 03/27/2025 1:00 PM EDT documented in this encounter Progress Notes * Saji Haywood DO - 03/27/2025 1:15 PM EDT HPI Patient presents today 1 month postop implantation of an inspire. He is doing very well. He has been activated and it is working well. Relevant postoperative physical examination Neck and chest incisions are well healed and beginning to fade very nicely. Assessment/plan Tripp was seen today for post-op. Diagnoses and all orders for this visit: GABINO (obstructive sleep apnea) (Primary) Comments: Patient encouraged to follow up with the Sleep Lab, I will see him back as needed documented in this encounter Plan of Treatment Upcoming Encounters Date Type Department Care Team (Late st Contact Info) Description 08/07/2025 4:30 PM EST Office Visit [facility] [place] [facility] [address] [place] [address] Seven Santa MD [address] [place] [address] documented as of this encounter Visit Diagnoses Diagnosis GABINO (obstructive sleep apnea)- Primary Obstructive sleep apnea (adult) (pediatric) documented in this encounter Care Teams Bale Sewer Relationship Specialty Start Date End Date Seven Santa MD [address] [place] [address] PCP - General Internal Medicine 12/16/22 Seven Santa MD [address] [place] [address] PCP - Beata Vásquez 11/08/24 documented as of this encounter
--- OUTSIDE RECORDS SUMMARY | 2025-03-30 16:40 | XMS_ITS | Encounter Summary ---
Author Organization [facility] Address [address] [facility] [place] [address] Care Team Providers Care Ply Bander Name Role Phone Seven Santa MD Primary Care Provider [phone] Seven Santa MD Unavailable [phone] Encounter Details Date Type Department Care Team (Late st Contact Info) Description 07/12/2024 Abstract [facility] [place] [facility] [address] [facility] 110 [place] [phone] Seven Santa MD 112 [facility] 110 [place] [address] Social History Tobacco Use Types Packs/Day Years [...] often do you attend chur ch or sabianism services? 1 to 4 times per year 06/09/2023 Do you belong to any clubs o r organizations such as latter day groups, unions, fraternal or athletic groups, or [...] and heating? Not hard at all 06/09/2023 [facility] of Occupat ional Health - Occupational Stress [...] place to sleep or slept in a penitentiary (including now)? No 06/09/2023 Sex and Gender [...] [facility] [address] [place] [address] Seven Santa MD [address] [facility] [address] [place] [address] documented as of this encounter Visit Diagnoses Not on filedocumented in this encounter Care Teams Ply Bander Relationship Specialty Start Date End Date Seven Santa MD [address] [place] [address] PCP - General Internal Medicine 12/16/22 Seven Santa MD [address] [place] [address] PCP - Beata Vásquez 11/08/24 documented as of this encounter
--- OUTSIDE RECORDS SUMMARY | 2025-03-30 16:40 | XMS_ITS | Encounter Summary ---
Author Organization [facility] Address [address] [facility] [place] [address] Care Team Providers Care Clinical Resource Manager Name Role Phone Seven Santa MD Primary Care Provider [phone] Seven Santa MD Unavailable [phone] Encounter Details Date Type Department Care Team (Latest Contact Info) Description 03/27/2025 Travel Social History Tobacco Use Types Packs/Day Years [...] How often do you attend chur or baptism services? Patient declined 09/14/2024 Do you belong to any clubs o r organizations such as jewish groups, unions, fraternal or athletic groups, or [...] Recorded Patient Health Questionnaire-2 Score 0 01/10/2025 [facility] of Occupat ional Health - Occupational Stress [...] in a penitentiary (including now)? No 06/09/2023 Housing Stability Vital Sign Answer Maruo e Recorded In the last 12 months, was t here a time when you were not able to pay the mortgage or rent on time? No 09/14/2024 In the past 12 months, how m any times have you moved where you were living? 0 09/14/2024 At any time in the past 12 m [facility], were you homeless or living in a penitentiary (including now)? No 09/14/2024 Sex and Gender [...] Visit [facility] [place] [facility] [address] [facility] 110 [place] [address] Seven Santa MD [address] [place] [address] documented as of this encounter Visit Diagnoses Not on filedocumented in this encounter Care Teams Clinical Resource Manager Relationship Specialty Start Date End Date Seven Santa MD [address] [place] [address] PCP - General Internal Medicine 12/16/22 Seven Santa MD 112 [facility] 110 [place] [address] PCP - [place] [employer] 11/08/24 documented as of this encounter
--- OUTSIDE RECORDS SUMMARY | 2025-03-30 16:40 | XMS_ITS | Encounter Summary ---
Author Organization [facility] Address [address] [facility] [place] [address] Care Team Providers Care Recycling Collections Driver Name Role Phone Seven Santa MD Primary Care Provider [phone] Seven Santa MD Unavailable [phone] Encounter Details Date Type Department Care Team (Late st Contact Info) Description 03/27/2025 Abstract [facility] [place] [facility] [address] [facility] 110 [place] [address] Seven Santa MD 112 [facility] 110 [place] [address] Social History Tobacco Use Types Packs/Day Years [...] week 09/14/2024 How often do you attend [facility] or moravian services? Patient declined 09/14/2024 Do you belong to any clubs o r organizations such as quaker groups, unions, fraternal or athletic groups, or [...] Recorded Patient Health Questionnaire-2 Score 0 01/10/2025 [facility] of Occupat ional Health - Occupational [...] any time in the past 12 m [facility], were you homeless or living in [...] Visit [facility] [place] [facility] [address] [facility] 110 [place] [address] Seven Santa MD [address] [facility] 110 [place] [address] documented as of this encounter Visit Diagnoses Not on filedocumented in this encounter Care Teams Recycling Collections Driver Relationship Specialty Start Date End Date Seven Santa MD [address] [facility] 110 [place] [address] PCP - General Internal Medicine 12/16/22 Seven Santa MD [address] [facility] 110 [place] [address] PCP - [place] [employer] 11/08/24 documented as of this encounter
--- OUTSIDE RECORDS SUMMARY | 2025-03-30 16:40 | XMS_ITS | Clinical Summary ---
Author Organization [facility] Address [address] [address], [address] [place] [address] Care Team Providers Care Relief Man Name Role Phone Sanjiv Mast DP Primary [...] on file [place] Care Teams Relief Man Relationship Specialty Start Date End Date Sanjiv Mast DPM [address] [place] [address] PCP - General Podiatry 01/19/17
--- OUTSIDE RECORDS SUMMARY | 2025-03-30 16:40 | XMS_ITS | Clinical Summary ---
Author Organization [facility] Address [address] [place] [address] Care Team Providers Care Signal Tower Operator Name Role Phone Kiet VLADES MD, Seven Anotny Primary Care Provider [phone] Allergies Active Allergy Reactions Criticality Noted Date [...] is lower risk 5 01/15/2023 Data from: https://www.neighborhoodatlas.medicine.[facility]/. Last address used for calculation [address] 01/15/2023 Sex and Gender Information [...] Insurance BLUE CARD PPO OOS Care Teams Signal Tower Operator Relationship Specialty Start Date End Date Seven Santa II, MD [address] [facility] 110 [place] [address] PCP - General Internal Medicine 12/27/21
--- OUTSIDE RECORDS SUMMARY | 2025-03-30 16:40 | XMS_ITS | Encounter Summary ---
Author Organization [facility] Address [address] [place] [address] Care Team Providers Care Community Chest Officer Name Role Phone Kiet VALDES MD, Seven Antony Primary Care Provider [phone] Source Comments In the event this information is protected by the Federal Confidentiality of Alcohol and Drug AbusePatient Records regulations: The Federal rules restrict any use of the information to criminally investigate or prosecute any alcohol or drug abuse patient.[facility] Encounter Details Date Type Department Care Team (Late st Contact Info) Description 07/21/2022 Patient Msg Ambulatory Surgery [address] [place], [place] [phone] Saji Gallagher MD [address] [place] [address] [address] [place], [place] [id number] Social History Tobacco Use Types Packs/Day Years [...] N ot on file 01/20/2022 Data from: https://www.neighborhoodatlas.[facility]/. Last address used for calculation [address] [place] [address] [address] 01/20/2022 Sex and Gender Information [...] on filedocumented in this encounter Care Teams Community Chest Officer Relationship Specialty Start Date End Date Seven Santa II, MD [address] [facility] 110 [place] [address] PCP - General Internal Medicine 12/27/21 documented as of this encounter
--- OUTSIDE RECORDS SUMMARY | 2025-03-30 16:40 | XMS_ITS | Encounter Summary ---
Author Organization [facility] Address [address] [facility] [place] [address] Care Team Providers Care Car Storer Name Role Phone Seven Santa MD Primary Care Provider [phone] Seven Santa MD Unavailable [phone] Encounter Details Date Type Department Care Team (Late st Contact Info) Description 01/10/2025 Abstract [facility] [place] [facility] [address] [facility] 110 [place] [phone] Seven Santa MD 112 [facility] 110 [place] [address] Social History Tobacco Use Types Packs/Day Years [...] week 09/14/2024 How often do you attend [facility] or oriental orthodox services? Patient declined 09/14/2024 Do you belong to any clubs o r organizations such as shinto groups, unions, fraternal or athletic groups, or [...] Recorded Patient Health Questionnaire-2 Score 0 01/10/2025 [facility] of Occupat ionmd Health - Occupational Stress Questionnaire Answer Date [...] any time in the past 12 m [facility], were you homeless or living in a [...] Visit [facility] [place] [facility] [address] [facility] 110 [place] [address] Seven Santa MD [address] [place] [address] documented as of this encounter Visit Diagnoses Not on filedocumented in this encounter Care Teams Car Storer Relationship Specialty Start Date End Date eSven Santa MD [address] [facility] 110 [place] [address] PCP - General Internal Medicine 12/16/22 Seven Santa MD [address] [facility] 110 [place] [address] PCP - Beata Vásquez 11/08/24 documented as of this encounter
--- OUTSIDE RECORDS SUMMARY | 2025-03-30 16:40 | XMS_ITS | Encounter Summary ---
Author Organization [facility] Address [address] [facility] [place] [address] Care Team Providers Care Ship/Rec/Doc Control Name Role Phone Seven Santa MD Primary Care Provider [phone] Seven Santa MD Unavailable [phone] Encounter Details Date Type Department Care Team (Late st Contact Info) Description 05/26/2024 Abstract [facility] [place] [facility] [address] [facility] 110 [place] [address] Seven Santa MD 112 [facility] 110 [place] [address] Social History Tobacco Use Types Packs/Day Years [...] often do you attend chur ch or judaism services? 1 to 4 times per year 06/09/2023 Do you belong to any clubs o r organizations such as episcopal groups, unions, fraternal or athletic groups, or [...] and heating? Not hard at all 06/09/2023 [facility] [place] of Occupat ional Health - Occupational Stress [...] [facility] [place] [facility] [address] [facility] 110 [place] [address] Seven Santa MD [address] [facility] 110 [place] [address] documented as of this encounter Visit Diagnoses Not on filedocumented in this encounter Care Teams Ship/Rec/Doc Control Relationship Specialty Start Date End Date Seven Santa MD [address] [place] [address] PCP - General Internal Medicine 12/16/22 Seven Santa MD [address] [place] [address] PCP - Beata Vásquez 11/08/24 documented as of this encounter
--- OUTSIDE RECORDS SUMMARY | 2025-03-30 16:40 | XMS_ITS | Encounter Summary ---
Author Organization [facility] Address [address] [facility] [place] [place] [address] Care Team Providers Care Private Branch Exchange Service Advisor Name Role Phone Seven Santa MD Primary Care Provider [phone] Seven Santa MD Unavailable [phone] Encounter Details Date Type Department Care Team (Late st Contact Info) Description 11/17/2023 Abstract [facility] [place] [facility] 112 [address] [facility] 110 [place] [address] Seven Santa MD 112 [facility] 110 [place] [address] Social History Tobacco Use Types Packs/Day Years [...] any clubs o r organizations such as faith groups, unions, fraternal or athletic groups, or [...] and heating? Not hard at all 06/09/2023 [facility] of Occupat ional Health - Occupational [...] Visit [facility] [place] [facility] [address] [facility] [address] [place] [address] Seven Santa MD [address] [place] [address] documented as of this encounter Visit Diagnoses Not on filedocumented in this encounter Care Teams Private Branch Exchange Service Advisor Relationship Specialty Start Date End Date Seven Santa MD [address] [place] [address] PCP - General Internal Medicine 12/16/22 Seven Santa MD [address] [place] [address] PCP - [place] [employer] 11/08/24 documented as of this encounter
--- OUTSIDE RECORDS SUMMARY | 2025-03-30 16:40 | XMS_ITS | Clinical Summary ---
Author Organization [facility] Address [address] [place] [address] Care Team Providers Care Product Support Manager Name Role Phone Seven Santa MD Primary Care Provider [phone] Allergies Active Allergy Reactions Criticality Noted Date [...] Active Problems Problem Noted Date Diagnosed Date Dyspnea on exertion 03/14/2025 Abnormal cardiovascular stress test 03/14/2025 Aneurysm of ascending aorta without rupture 09/2024 [...] (02/21/2025): Added automatically from request for surgery [id number] Diverticulosis large intesti ne w/o perforation or abscess w/o bleeding 11/19/2020 Hyperplastic polyp of sigmoid colon 11/19/2020 Positive colorectal cancer screening using Colog uard test 10/25/2020 Encounters Date Type Department Care Team Description 03/30/2025 Travel 03/23/2025 Telephone [facility] [address] [facility] [place] [address] Evelia Salcedo MA 03/14/2025 Telephone [facility] [address] [place] [facility] [place] [address] Mi Quiroz MA 03/14/2025 Orders Only [address] [place] [address] Mi Quiroz MA Other chest pain (Primary Dx); Dyspnea on exertion; Abnormal cardiovascular stress test 03/13/2025 Orders Only [facility] [address] [facility] [place] [address] Fabi Richmond MD 02/22/2025 Telephone [facility] [address] [place] [address] Mi Quiroz MA 02/21/2025 2:45 PM EDT Office Visit [address] [place] [address] Angel Miranda MD Nonrheumatic aortic valve stenosis [...] 02/21/2025 3:15 PM EDT Plan of Treatment Upcoming Encounters Date Type Department Care Team (Late st Contact Info) Description 04/06/2025 8:30 AM EDT Hospital Encounter [facility] Heart [facility] [address] Vascular Lab [address] [place] [address] Angel Miranda MD [address] [facility] [place] [address] Dyspnea on exertion; Abnormal cardiovascular stress test 04/06/2025 8:30 AM EDT - 04/06/2025 9:30 AM EDT Surgery [facility] Heart [facility] [address] Vascular Lab [address] [place] [address] Angel Miranda MD [address] [facility] [place] [address] Coronary angiography Health Maintenance Due Date Last Done Comments [...] 05/04/2023, 09/10, 03/04/2017 Zoster Vaccines Completed 08/21/2019, 120 08/2018, 11/15/2016 HIB Vaccines Aged Out No [...] on patient's age to complete this topic Procedures Procedure Name Priority Date/Time Associated Diagnosis Comments LEXISCAN STRESS MYOCARDIAL PERFUSION IMAGING Routine 03/09/2025 11:10 AM EDT from Last 3 Months Results * Lexiscan Stress Myocardial Perfusion Imaging (03/09/2025 11:10 AM EDT) Anatomical Region Laterality Modality Other us Historical Provider CV STRESS PROCEDURES Stephanie l Result from Last 3 Months Insurance [facility] Care Teams Product Support Manager Relationship Specialty Start Date End Date Seven Santa MD [address] [facility] 110 [place] [address] PCP - General Internal Medicine 02/15/25
--- OUTSIDE RECORDS SUMMARY | 2025-03-30 16:40 | XMS_ITS | Encounter Summary ---
Author Organization [facility] Address [address] [facility] [place] [address] Care Team Providers Care Clerk Checker Name Role Phone Seven Santa MD Primary Care Provider [phone] Seven Santa MD Unavailable [phone] Encounter Details Date Type Department Care Team (Late st Contact Info) Description 12/07/2024 Abstract [facility] [place] [facility] [address] [facility] 110 [place] [address] Seven Santa MD 112 [facility] 110 [place] [address] Social History Tobacco Use Types Packs/Day Years [...] attend [facility] or mormon services? Patient declined 09/14/2024 Do you belong to any clubs o r organizations such as pentecostal groups, unions, fraternal or athletic groups, or [...] Recorded Patient Health Questionnaire-2 Score 0 12/08/2024 [facility] of Occupat ionny Health - Occupational Stress Questionnaire Answer Date [...] place to sleep or slept in a retirement (including now)? No 06/09/2023 Housing Stability Vital Sign Answer Mauro e Recorded In the last 12 months, was t here a time when you were not able to pay the mortgage or rent on time? No 09/14/2024 In the past 12 months, how m any times have you moved where you were living? 0 09/14/2024 At any time in the past 12 m [facility], were you homeless or living in a retirement (including now)? No 09/14/2024 Sex and Gender [...] 4:30 PM EST Office Visit [facility] [place] [facility] [address] [facility] 110 [place] [address] Seven Santa MD [address] [facility] 110 [place] [address] documented as of this encounter Visit Diagnoses Not on filedocumented in this encounter Care Teams Clerk Checker Relationship Specialty Start Date End Date Seven Santa MD [address] [facility] 110 [place] [address] PCP - General Internal Medicine 12/16/22 Seven Santa MD [address] [facility] 110 [place] [address] PCP - Beata Vásquez 11/08/24 documented as of this encounter
--- OUTSIDE RECORDS SUMMARY | 2025-03-30 16:40 | XMS_ITS | Encounter Summary ---
Author Organization [facility] Address [address] [place] [address] Care Team Providers Care Sales Rep Name Role Phone Seven Santa MD Primary Care Provider [phone] Seven Santa MD Unavailable [phone] Encounter Details Date Type Department Care Team (Late st Contact Info) Description 07/06/2024 Abstract [facility] [place] [facility] [address] [facility] 110 [place] [address] Seven Santa MD 112 [facility] 110 [place] [address] Social History Tobacco Use Types Packs/Day Years [...] often do you attend chur ch or congregation services? 1 to 4 times per year 06/09/2023 Do you belong to any clubs o r organizations such as taoism groups, unions, fraternal or athletic groups, or [...] and heating? Not hard at all 06/09/2023 [facility] [place] of Occupat ional Health - Occupational Stress [...] place to sleep or slept in a residential (including now)? No 06/09/2023 Sex and Gender [...] Visit [facility] [place] [facility] [address] [facility] 110 [place] [address] Seven Santa MD [address] [facility] 110 [place] [address] documented as of this encounter Visit Diagnoses Not on filedocumented in this encounter Care Teams Sales Rep Relationship Specialty Start Date End Date Seven Santa MD [address] [place] [address] PCP - General Internal Medicine 12/16/22 Seven Santa MD [address] [place] [address] PCP - Beata Vásquez 11/08/24 documented as of this encounter
--- OUTSIDE RECORDS SUMMARY | 2025-03-30 16:40 | XMS_ITS | Encounter Summary ---
Author Organization [facility] Address [address] [place] [address] Care Team Providers Care Gear Coding Machine Operator Name Role Phone Seven Santa MD Primary Care Provider [phone] Encounter Details Date Type Department Care Team (Late st Contact Info) Description 03/14/2025 Orders Only [facility] [address] [place] [address] Mi Quiroz MA Other chest pain (Primary Dx); Dyspnea on exertion; Abnormal cardiovascular stress test Social History Tobacco Use Types Packs/Day Years [...] Description 04/06/2025 8:30 AM EDT Hospital Encounter [facility] Heart and Vascular Center Vascular Lab [address] [place] [address] Angel Miranda MD [address] [facility] [address] [facility] [place] [address] Dyspnea on exertion; Abnormal cardiovascular stress test 04/06/2025 8:30 AM EDT - 04/06/2025 9:30 AM EDT Surgery [facility] Heart and Vascular Center Vascular Lab [address] [place] [address] Angel Miranda MD [address] [facility] [place] [address] Coronary angiography Scheduled Orders Name Type Priority Associated Diagnoses Orde r Schedule CBC and differential Lab Routine Dyspnea on exertion Expected: 03/14/2025 (Approximate), Expires: 03/14/2026 Basic metabolic panel Lab Routine Dyspnea on exertion Expected: 03/14/2025 (Approximate), Expires: 03/14/2026 documented as of this encounter Visit Diagnoses Diagnosis Other chest pain- Primary Dyspnea on exertion Other dyspnea and respiratory abnormality Abnormal cardiovascular stress test Other nonspecific abnormal cardiovascular system function study Dyspnea on exertion Other dyspnea and respiratory abnormality Abnormal cardiovascular stress test Other nonspecific abnormal cardiovascular system function study Dyspnea on exertion Other dyspnea and respiratory abnormality Abnormal cardiovascular stress test Other nonspecific abnormal cardiovascular system function study documented in this encounter Care Teams Gear Coding Machine Operator Relationship Specialty Start Date End Date Seven Santa MD [address] [facility] 110 [place] [address] PCP - General Internal Medicine 02/15/25 documented as of this encounter
--- OUTSIDE RECORDS SUMMARY | 2025-03-30 16:40 | XMS_ITS | Encounter Summary ---
Author Organization [facility] Address [address] [facility] [place] [address] Care Team Providers Care Seafood Clerk Name Role Phone Seven Santa MD Primary Care Provider [phone] Seven Santa MD Unavailable [phone] Encounter Details Date Type Department Care Team (Late st Contact Info) Description 07/06/2024 Abstract [facility] [place] [facility] [address] [facility] 110 [place] [address] Seven Santa MD 112 [facility] 110 [place] [address] Social History Tobacco Use Types Packs/Day Years [...] often do you attend chur ch or yazidi services? 1 to 4 times per year 06/09/2023 Do you belong to any clubs o r organizations such as tenriism groups, unions, fraternal or athletic groups, or [...] and heating? Not hard at all 06/09/2023 [facility] [place] of Occupat ional Health - Occupational Stress [...] place to sleep or slept in a alf (including now)? No 06/09/2023 Sex and Gender [...] Visit [facility] [place] [facility] [address] [facility] 110 [place] [address] Seven Santa MD [address] [facility] 110 [place] [address] documented as of this encounter Visit Diagnoses Not on filedocumented in this encounter Care Teams Seafood Clerk Relationship Specialty Start Date End Date Seven Santa MD [address] [place] [address] PCP - General Internal Medicine 12/16/22 Seven Santa MD [address] [place] [address] PCP - Beata Vásquez 11/08/24 documented as of this encounter
--- OUTSIDE RECORDS SUMMARY | 2025-03-30 16:40 | XMS_ITS | Encounter Summary ---
Author Organization [facility] Address [address] [facility] [place] [address] Care Team Providers Care Rail Track Maintainer Name Role Phone Seven Santa MD Unavailable [phone] Seven Santa MD Primary Care Provider [phone] Seven Santa MD Unavailable [phone] Reason for Visit * Reason Comments Med Refill Encounter Details Date Type Department Care Team (Late st Contact Info) Description 07/17/2023 Refill [facility] Medicine [address] [place] [address] Daina Suárez, DO [address] [address] Social History Tobacco Use Types Packs/Day Years [...] often do you attend chur ch or sikhism services? 1 to 4 times per year [...] heating? Not hard at all 06/09/2023 [facility] [place] of Occupat ional Health - Occupational Stress [...] place to sleep or slept in a snf (including now)? No 06/09/2023 Sex and Gender [...] Visit [facility] [place] [facility] [address] [facility] 110 [place] [address] Seven Santa MD [address] [place] [address] documented as of this encounter Visit Diagnoses Not on filedocumented in this encounter Care Teams Rail Track Maintainer Relationship Specialty Start Date End Date Seven Santa MD [address] [place] [address] PCP - [place] [employer] 11/08/21 Seven Santa MD [address] [place] [address] PCP - General Internal Medicine 12/16/22 Seven Santa MD [address] [place] [address] PCP - [place] [employer] 11/08/24 documented as of this encounter
--- OUTSIDE RECORDS SUMMARY | 2025-03-30 16:40 | XMS_ITS | Encounter Summary ---
Author Organization [facility] Address [address] [facility] [place] [address] Care Team Providers Care Systems Programmer Name Role Phone Seven Santa MD Primary Care Provider [phone] Seven Santa MD Unavailable [phone] Encounter Details Date Type Department Care Team (Late st Contact Info) Description 07/06/2024 Abstract [facility] [place] [facility] [address] [facility] 110 [place] [address] Seven Santa MD 112 [facility] 110 [place] [address] Social History Tobacco Use Types Packs/Day Years [...] you attend chur ch or jew services? 1 to 4 times per year 06/09/2023 Do you belong to any clubs o r organizations such as roman catholic groups, unions, fraternal or athletic groups, or [...] heating? Not hard at all 06/09/2023 [facility] [place] of Occupat ional Health - Occupational Stress [...] place to sleep or slept in a mcfp (including now)? No 06/09/2023 Sex and Gender [...] [address] [facility] 110 [place] [address] Seven Santa MD [address] [facility] 110 [place] [address] documented as of this encounter Visit Diagnoses Not on filedocumented in this encounter Care Teams Systems Programmer Relationship Specialty Start Date End Date Seven Santa MD [address] [place] [address] PCP - General Internal Medicine 12/16/22 Seven Santa MD [address] [place] [address] PCP - Beata Vásquez 11/08/24 documented as of this encounter
--- OUTSIDE RECORDS SUMMARY | 2025-03-30 16:40 | XMS_ITS | Clinical Summary ---
Author Organization [facility] tem Address [id number] [address] [place] [address] Care Team Providers Care Watermaster Name Role Phone Seven Santa MD Primary Care Provider [phone] Allergies Active Allergy Reactions Criticality Noted Date [...] - 02/07/2025 11:59 PM EDT Hospital Encounter [facility] - Cardiovascular [address] [place] [phone] Elevated blood pressure reading without diagnosis of [...] 07/10/2019, 11/15/2016 Medical Devices Implanted Type Area Conveyor Belt Installer Device Identifier Shelf Expiration Date Model / Serial / Lot Mesh 3in Lg Pp Srgpro Nabsb Knit Plg Srg Strl Clr Hrn Rpl [id number] - [id number] - [id number] Implanted:Qty: 1 on 06/03/2021 by Graham Hanson MD at [facility] Mesh Left: Abdomen [employer] [facility] 01/07/2026 SMPL-01 / [id number] / [id number] Mesh 4.7x3in Plstr Parietex Progrip Lt Flp Slf Fx - [id number] - [id number] Implanted:Qty: 1 on 06/03/2021 by Graham Hanson MD at [facility] Mesh Left: Abdomen [employer] [facility] 04/09/2025 [id number] / [id number] / [id number] Procedures Procedure Name Priority Date/Time Associated Diagnosis [...] Velocity Ratio 0.29 XCELERA Left Ventricle Mass [id number] 8 g XCELERA Interventricular Septum Diastolic Thickness [...] Result from Last 3 Months Insurance [address] [place] [address] ANTHEM Care Teams Watermaster Relationship Specialty Start Date End Date Seven Santa MD 112 [facility] [address] [place] [address] PCP - General Internal Medicine 05/21/21
--- OUTSIDE RECORDS SUMMARY | 2025-03-30 16:40 | XMS_ITS | Encounter Summary ---
Author Organization [facility] Address [address] [address] Care Team Providers Care Baby Registry Sales Consultant Name Role Phone Seven Santa MD Primary Care Provider [phone] Encounter Details Date Type Department Care Team (Latest Contact Info) Description 03/30/2025 Travel Social History Tobacco Use Types Packs/Day [...] Hospital Encounter [facility] Heart [facility] [address] [place] [address] Angel Miranda MD [address] [place] [address] Dyspnea on exertion; Abnormal cardiovascular stress test 04/06/2025 8:30 AM EDT - 04/06/2025 9:30 AM EDT Surgery [facility] Heart [facility] [address] [facility] [place] [address] Angel Miranda MD [address] [place] [address] Coronary angiography documented as of this encounter Visit Diagnoses Not on filedocumented in this encounter Care Teams Baby Registry Sales Consultant Relationship Specialty Start Date End Date Seven Santa MD 112 [facility] 110 [place] [address] PCP - General Internal Medicine 02/15/25 documented as of this encounter
--- OUTSIDE RECORDS SUMMARY | 2025-03-30 16:40 | XMS_ITS | Encounter Summary ---
Author Organization [facility] Address [address] [facility] [place] [address] Care Team Providers Care Process Analyst Name Role Phone Seven Santa MD Primary Care Provider [phone] Seven Santa MD Unavailable [phone] Encounter Details Date Type Department Care Team (Late st Contact Info) Description 09/16/2024 Abstract [facility] [place] [facility] [address] [facility] 110 [place] [address] Seven Santa MD 112 [facility] 110 [place] [address] Social History Tobacco Use Types Packs/Day Years [...] 09/14/2024 How often do you attend [facility] or anabaptist services? Patient declined 09/14/2024 Do you belong to any clubs o r organizations such as baptism groups, unions, fraternal or athletic groups, or [...] Recorded Patient Health Questionnaire-2 Score 0 09/14/2024 [facility] of Occupat ionmd Health - Occupational Stress [...] place to sleep or slept in a senior care (including now)? No 06/09/2023 Housing Stability Vital Sign Answer Mauro e Recorded In the last 12 months, was t here a time when you were not able to pay the mortgage or rent on time? No 09/14/2024 In the past 12 months, how m any times have you moved where you were living? 0 09/14/2024 At any time in the past 12 m [facility], were you homeless or living in a senior care (including now)? No 09/14/2024 Sex and Gender [...] Visit [facility] [place] [facility] [address] [facility] 110 [place] [address] Seven Santa MD [address] [place] [address] documented as of this encounter Visit Diagnoses Not on filedocumented in this encounter Care Teams Process Analyst Relationship Specialty Start Date End Date Seven Santa MD [address] [facility] 110 [place] [address] PCP - General Internal Medicine 12/16/22 Seven Santa MD [address] [facility] 110 [place] [address] PCP - [place] [employer] 11/08/24 documented as of this encounter
--- OUTSIDE RECORDS SUMMARY | 2025-03-30 16:40 | XMS_ITS | Encounter Summary ---
Author Organization [facility] Address [address] [place] [address] Care Team Providers Care Home Support Worker Name Role Phone Kiet VALDES MD, Seven Antony Primary Care Provider [phone] Source Comments In the event this information is protected by the Federal Confidentiality of Alcohol and Drug AbusePatient Records regulations: The Federal rules restrict any use of the information to criminally investigate or prosecute any alcohol or drug abuse patient.[facility] Encounter Details Date Type Department Care Team (Late st Contact Info) Description 12/25/2021 Patient Msg Pain Management [address] [place], [place] [id number] Saji Gallagher MD [address] [place] [address] [place] [address] Social History Tobacco Use Types [...] on filedocumented in this encounter Care Teams Home Support Worker Relationship Specialty Start Date End Date Seven Santa II, MD [address] [facility] 110 [place] [address] PCP - General Internal Medicine 12/27/21 documented as of this encounter
--- OUTSIDE RECORDS SUMMARY | 2025-03-30 16:40 | XMS_ITS | Encounter Summary ---
Author Organization [facility] Address [address] [facility] [place] [address] Care Team Providers Care Wheel Inspector Name Role Phone Seven Santa MD Primary Care Provider [phone] Seven Santa MD Unavailable [phone] Encounter Details Date Type Department Care Team (Late st Contact Info) Description 12/01/2024 Abstract [facility] [place] [facility] [address] [facility] 110 [place] [address] Seven Santa MD 112 [facility] 110 [place] [address] Social History Tobacco Use Types Packs/Day Years [...] week 09/14/2024 How often do you attend [facility] or christian services? Patient declined 09/14/2024 Do you belong to any clubs o r organizations such as scientologist groups, unions, fraternal or athletic groups, or [...] Recorded Patient Health Questionnaire-2 Score 0 09/14/2024 [facility] of Occupat ionwa Health - Occupational Stress Questionnaire Answer Date [...] place to sleep or slept in a fpc (including now)? No 06/09/2023 Housing Stability Vital Sign Answer Mauro e Recorded In the last 12 months, was t here a time when you were not able to pay the mortgage or rent on time? No 09/14/2024 In the past 12 months, how m any times have you moved where you were living? 0 09/14/2024 At any time in the past [address] [facility], were you homeless or living in a fpc (including now)? No 09/14/2024 Sex and Gender [...] Visit [facility] [place] [facility] [address] [facility] 110 [place] [address] Seven Santa MD [address] [place] [address] documented as of this encounter Visit Diagnoses Not on filedocumented in this encounter Care Teams Wheel Inspector Relationship Specialty Start Date End Date Seven Santa MD [address] [email or web address] 110 [place] [address] PCP - General Internal Medicine 12/16/22 Seven Santa MD [address] [email or web address] 110 [place] [address] PCP - [place] [employer] 11/08/24 documented as of this encounter
--- OUTSIDE RECORDS SUMMARY | 2025-03-30 16:40 | XMS_ITS | Encounter Summary ---
Author Organization [facility] Address [address] [facility] [place] [address] Care Team Providers Care Corporate Manager Name Role Phone Seven Santa MD Primary Care Provider [phone] Seven Santa MD Unavailable [phone] Encounter Details Date Type Department Care Team (Late st Contact Info) Description 07/06/2024 Abstract [facility] [place] [facility] [address] [facility] 110 [place] [address] Seven Santa MD 112 [facility] 110 [place] [address] Social History Tobacco Use Types Packs/Day Years [...] often do you attend chur ch or samaritan services? 1 to 4 times per year 06/09/2023 Do you belong to any clubs o r organizations such as jainism groups, unions, fraternal or athletic groups, or [...] and heating? Not hard at all 06/09/2023 [facility] [place] of Occupat ional Health - Occupational Stress [...] in a fdc (including now)? No 06/09/2023 Sex and Gender [...] [place] [facility] [address] [place] [address] [place] [address] Seven Santa MD [address] [facility] 110 [place] [address] documented as of this encounter Visit Diagnoses Not on filedocumented in this encounter Care Teams Corporate Manager Relationship Specialty Start Date End Date Seven Santa MD [address] [place] [address] PCP - General Internal Medicine 12/16/22 Seven Santa MD [address] [place] [address] PCP - Beata Vásquez 11/08/24 documented as of this encounter
--- OUTSIDE RECORDS SUMMARY | 2025-03-30 16:40 | XMS_ITS | Encounter Summary ---
Author Organization [facility] Address [address] [place] [address] Care Team Providers Care Recordings Librarian Name Role Phone Seven Santa MD Primary Care Provider [phone] Encounter Details Date Type Department Care Team (Late st Contact Info) Description 03/13/2025 Orders Only [facility] Heart [facility] [address] [place] [address] ProviderFabi MD [address] [place] [address] Social History Tobacco Use Types Packs/Day Years [...] Description 04/06/2025 8:30 AM EDT Hospital Encounter [facility] Lab [address] [place] [address] Angel Miranda MD [address] [facility] [address] [facility] [place] [address] Dyspnea on exertion; Abnormal cardiovascular stress test 04/06/2025 8:30 AM EDT - 04/06/2025 9:30 AM EDT Surgery [facility] [address] [place] [address] Angel Miranda MD [address] [facility] [address] [facility] [place] [address] Coronary angiography documented as of this encounter Procedures Procedure Name Priority Date/Time Associated Diagnosis Comments LEXISCAN STRESS MYOCARDIAL PERFUSION IMAGING Routine 03/09/2025 11:10 AM EDT documented in this encounter Results * Lexiscan Stress Myocardial Perfusion Imaging (03/09/2025 11:10 AM EDT) Anatomical Region Laterality Modality Other us Historical Provider CV STRESS PROCEDURES Stephanie l Result documented in this encounter Visit Diagnoses Not on filedocumented in this encounter Care Teams Recordings Librarian Relationship Specialty Start Date End Date Seven Santa MD 112 [facility] 110 [place] [address] PCP - General Internal Medicine 02/15/25 documented as of this encounter
--- OUTSIDE RECORDS SUMMARY | 2025-03-30 16:40 | XMS_ITS | Encounter Summary ---
Author Organization [facility] Address [address] [place] [address] Care Team Providers Care Ehs Engineer Name Role Phone Seven Santa MD Primary Care Provider [phone] Encounter Details Date Type Department Care Team (Late st Contact Info) Description 03/23/2025 Telephone [facility] [place] [address] [place] [address] Evelia Salcedo MA Social History Tobacco Use Types Packs/Day [...] Description 04/06/2025 8:30 AM EDT Hospital Encounter [facility] Heart [facility] Lab [address] [place] [address] Angel Miranda MD [address] [facility] [place] [address] Dyspnea on exertion; Abnormal cardiovascular stress test 04/06/2025 8:30 AM EDT - 04/06/2025 9:30 AM EDT Surgery [facility] Heart [facility] [address] [place] [address] Angel Miranda MD [address] [facility] [address] [facility] [place] [address] Coronary angiography documented as of this encounter Visit Diagnoses Not on filedocumented in this encounter Care Teams Ehs Engineer Relationship Specialty Start Date End Date Seven Santa MD 112 [facility] 110 [place] [address] PCP - General Internal Medicine 02/15/25 documented as of this encounter
--- OUTSIDE RECORDS SUMMARY | 2025-03-30 16:41 | XMS_ITS | Encounter Summary ---
Author Organization [facility] Address [address] [place] [address] Care Team Providers Care Windows Administrator Name Role Phone Seven Santa MD Primary Care Provider [phone] Seven Santa MD Unavailable [phone] Encounter Details Date Type Department Care Team (Late st Contact Info) Description 01/30/2025 External Result Encounter [facility] External Department Unsolicited Saji Haywood, DO [address] [place] [address] Social History Tobacco Use Types Packs/Day Years [...] How often do you attend chur or druze services? Patient declined 09/14/2024 Do you belong [...] Recorded Patient Health Questionnaire-2 Score 0 01/10/2025 [facility] of Occupat ional [facility] - Occupational Stress Questionnaire Answer Date Recorded [...] place to sleep or slept in a assisted (including now)? No 06/09/2023 Housing Stability Vital Sign Answer Mauro e Recorded In the last 12 months, was t here a time when you were not able to pay the mortgage or rent on time? No 09/14/2024 In the past 12 months, how m any times have you moved where you were living? 0 09/14/2024 At any time in the past 12 m [facility], were you homeless or living in a assisted (including now)? No 09/14/2024 Sex and Gender Information Value Date Recorded Sex Assigned at Not on file Legal Sex Male 6:40 PM EDT Gender Identity Not on file Sexual Orientation Not on file documented as of this encounter Plan of Treatment Upcoming Encounters Date Type Department Care Team (Late st Contact Info) Description 08/07/2025 4:30 PM EST Office Visit [facility] [place] [facility] [address] [facility] [address] [place] [address] Seven Santa MD [address] [facility] 110 [place] [address] documented as of this encounter Procedures Procedure Name Priority Date/Time Associated Diagnosis Comments ECG 12-LEAD 01/30/2025 10:29 AM EDT documented in this encounter Results * ECG 12 lead (01/30/2025 10:29 AM EDT) 01/30/2025 10:2 9 AM EDT [facility] - 01/30/2025 2:12 PM EDT [facility] Main [place] [id number] Electrocardiograph Report Signed Patient: Tripp Win MR#: [id number] : [id number] Acct:[id number] Age/Sex: 64 / M ADM Date: 01/30/25 Loc: PS Room: Type: REG CLI Attending Dr: Saji Haywood DO Ordering Provider: [...] change was found Confirmed by Daniel Borjas ([id number]) on 01/30/2025 2:12:17 PM Referred By: Electronically Signed By: Daniel Borjas Transcribed By: MUS Signed By Daniel Borjas MD 01/30/25 1412 Procedure Note Korey Borjas MD - 01/30/[address] [address] Electrocardiograph Report Signed Patient: Tripp Win AMR#: [id number] : [id number]:[id number] Age/Sex: 64 / MADM Date: 01/30/25 Loc: PS Room:Type: REG CLI Attending Dr: Saji Haywood DO Ordering Provider: [...] change was found Confirmed by Daniel Borjas ([id number]) on 01/30/2025 2:12:17 PM Referred By: Electronically Signed By: Daniel Borjas Transcribed By: MUS Signed By Daniel Borjsa MD 01/30/25 1412 us Saji Haywood DO ECG ORDERABLES Final Resul t [facility] [address] [place] [address], documented in this encounter Visit Diagnoses Not on filedocumented in this encounter Care Teams Windows Administrator Relationship Specialty Start Date End Date Seven Santa MD [address] [facility] 110 [place] [address] PCP - General Internal Medicine 12/16/22 Seven Santa MD [address] [facility] 110 [place] [address] PCP - Beata Vásquez 11/08/24 documented as of this encounter
--- OUTSIDE RECORDS SUMMARY | 2025-03-30 16:41 | XMS_ITS | Encounter Summary ---
Author Organization [facility] Address [address] [facility] [place] [address] Care Team Providers Care Color Artist Name Role Phone Seven Santa MD Primary Care Provider [phone] Seven Santa MD Unavailable [phone] Encounter Details Date Type Department Care Team (Late st Contact Info) Description 02/13/2025 Abstract [facility] [place] [facility] [address] [facility] 110 [place] [address] Seven Santa MD 112 [facility] 110 [place] [address] Social History Tobacco Use Types Packs/Day Years [...] week 09/14/2024 How often do you attend [facility] or rastafari services? Patient declined 09/14/2024 Do you belong to any clubs o r organizations such as jehovah's witness groups, unions, fraternal or athletic groups, or [...] Recorded Patient Health Questionnaire-2 Score 0 01/10/2025 [facility] of Occupat ionwy Health - Occupational Stress Questionnaire Answer Date [...] in a mcc (including now)? No 06/09/2023 Housing Stability Vital [...] time in the past [address] [facility], were you homeless or living in a mcc (including now)? No 09/14/2024 Sex and Gender [...] Visit [facility] [place] [facility] [address] [facility] 110 [place] [address] Seven Santa MD [address] [place] [address] documented as of this encounter Visit Diagnoses Not on filedocumented in this encounter Care Teams Color Artist Relationship Specialty Start Date End Date Seven Santa MD [address] [facility] 110 [place] [address] PCP - General Internal Medicine 12/16/22 Seven Santa MD [address] [facility] 110 [place] [address] PCP - [place] [employer] 11/08/24 documented as of this encounter
--- OUTSIDE RECORDS SUMMARY | 2025-03-30 16:41 | XMS_ITS | Encounter Summary ---
Author Organization [facility] Address [address] [place] [address] Care Team Providers Care Sample Dye Mixer Name Role Phone Kiet VALDES MD, Seven Antony Primary Care Provider [phone] Source Comments In the event this information is protected by the Federal Confidentiality of Alcohol and Drug AbusePatient Records regulations: The Federal rules restrict any use of the information to criminally investigate or prosecute any alcohol or drug abuse patient.[facility] Encounter Details Date Type Department Care Team (Late st Contact Info) Description 2024 [place] [address] Provider, [facility] Medicare Coverage of Physical Exams [...] is lower risk 5 01/15/2023 Data from: https://www.neighborhoodatlas.medicine.[facility].edu/. Last address used for calculation [address] [place] [address] 01/15/2023 Sex and Gender Information Value Date Recorded Sex Assigned at Not on file Legal Sex Male 10:13 AM EDT Gender Identity Not on file Sexual Orientation Not on file documented as of this encounter Plan of Treatment Not on file documented as of this encounter Visit Diagnoses Not on filedocumented in this encounter Care Teams Sample Dye Mixer Relationship Specialty Start Date End Date Seven Santa II, MD [address] [place] [address] [place] [address] PCP - General Internal Medicine 12/27/21 documented as of this encounter
--- OUTSIDE RECORDS SUMMARY | 2025-03-30 16:41 | XMS_ITS | Encounter Summary ---
Author Organization [facility] Address [address] [place] [address] Care Team Providers Care Rn Plastics Name Role Phone Kiet VALDSE MD, Seven Antony Primary Care Provider [phone] Source Comments In the event this information is protected by the Federal Confidentiality of Alcohol and Drug AbusePatient Records regulations: The Federal rules restrict any use of the information to criminally investigate or prosecute any alcohol or drug abuse patient.[facility] Encounter Details Date Type Department Care Team (Late st Contact Info) Description 06/29/2023 Get Medical Advice Pain Management [address] [place], [place] [id number] Saji Gallagher MD [address] [place] [address] 6 month follow up appointment type. Social [...] is lower risk 5 01/15/2023 Data from: https://www.neighborhoodatlas.[facility]/. Last address used for calculation [address] [place] [address] 01/15/2023 Sex and Gender Information Value Date Recorded Sex Assigned at Not on file Legal Sex Male 10:13 AM EDT Gender Identity Not on file Sexual Orientation Not on file documented as of this encounter Plan of Treatment Not on file documented as of this encounter Visit Diagnoses Not on filedocumented in this encounter Care Teams Rn Plastics Relationship Specialty Start Date End Date Seven Santa II, MD [address] [facility] [address] [place] [address] PCP - General Internal Medicine 12/27/21 documented as of this encounter
--- OUTSIDE RECORDS SUMMARY | 2025-03-30 16:41 | XMS_ITS | Clinical Summary ---
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 Name Role Phone Seven Santa MD Primary Care Provider [phone] Seven Santa MD Unavailable [phone] Allergies Active Allergy Reactions Criticality Noted Date [...] 600 MG tablet sustained-release 24 hour Daily 01/16/20 23 Active [facility] Turmeric Curcumin 500 MG capsule 05/18/20 24 Active neomycin-polymyxin -dexAMETHasone (Polydex) 3.5-37847-8.1 ointment ophthalmic ointment Apply to both eyes 09/02/19 25 Active celecoxib (CeleBREX) 200 MG capsuleIndications :Lipids blood increased TAKE 1 CAPSULE BY MOUTH TWICE A DAY WITH FOOD 180 capsule 4 12/16/19 25 Active cetirizine-pseudoe phedrine (ZyrTEC-D) 5-120 MG 12 hr tablet Take 1 tablet by mouth at bedtime Active Misc Natural Products (PROSTATE HEALTH PO) Take 2 tablets by mouth in the morning. Active levothyroxine (Synthroid, Levoxyl) 137 MCG tabletIndications: Acquired hypothyroidism TAKE 1 TABLET BY MOUTH EVERYDAY IN THE MORNING BEFORE MEALS 90 tablet 3 03/13/20 25 Active levothyroxine (Synthroid, Levoxyl) 137 MCG tabletIndications: Acquired hypothyroidism TAKE 137 MCG BY MOUTH IN THE MORNING. TAKE BEFORE MEALS. 100 tablet 2 06/20/20 24 025 Discontinued Active Problems Problem Noted Date Diagnosed Date [...] Encounters Date Type Department Care Team Description 03/27/2025 1:15 PM EDT Office Visit [facility] [address] [place] [phone] Saji Haywood DO GABINO (obstructive sleep apnea) (Primary Dx) 03/27/2025 Travel 03/27/2025 Abstract [facility] [place] [facility] [address] [facility] [address] [place] [address] Seven Santa MD 03/12/2025 [facility] [place] [facility] [address] [facility] [address] [place] [address] Seven Santa MD Acquired hypothyroidism 02/20/2025 2:45 PM EDT Office Visit [facility] [address] [place] [address] Saji Haywood, DO GABINO (obstructive sleep apnea) (Primary Dx) 02/20/2025 Bamboo flowsheet [facility] [address] [place] [address] Saji Haywood, 02/20/2025 Travel 02/13/2025 8:00 AM EDT Procedure Visit [facility] Saji Haywood, DO GABINO (obstructive sleep apnea) (Primary Dx) 02/13/2025 [facility] [place] [facility] [address] [facility] [address] [place] [address] Seven Santa MD 02/13/2025 Orders Only [facility] [address] [place] [address] Saji Haywood, DO Obstructive sleep apnea 02/08/20[address] [facility] [place] [facility] [address] [place] [address] Seven Santa MD 02/07/2025 [facility] [place] [facility] [address] [facility] [address] [place] [address] Seven Santa MD 01/31/2025 [facility] [address] [facility] [address] [place] [address] Seven Santa MD 01/30/2025 External Result Encounter [facility] External Department Unsolicited Saji Haywood, DO 01/30/2025 External Result Encounter [facility] External Department Unsolicited Saji Haywood, DO 01/30/2025 External Result Encounter [facility] External Department Unsolicited Saji Haywood, DO 01/23/2025 Telephone [facility] [address] [place] [address] Seven Engle RN 01/10/2025 2:00 PM EDT Office Visit [facility] [place] [address] [place] [address] Maria De Jesus Baltazar PA Obstructive sleep apnea (adult) (pediatric) (Primary Dx); Elevated BP without diagnosis of hypertension; Newly recognized murmur 01/10/2025 Abstract [facility] [place] [facility] [address] [facility] [address] [place] [address] Seven Santa MD 01/10/2025 Bamboo flowsheet [facility] [place] [address] [place] [address] Maria De Jesus Baltazar PA 01/10/2025 Travel 01/04/2025 1:45 PM EDT Office Visit [facility] [address] [place] [address] Saji Haywood, DO GABINO (obstructive sleep apnea) (Primary Dx); Intolerance of continuous positive airway pressure (CPAP) ventilation 01/04/2025 Bamboo flowsheet [facility] [address] [place] [address] Saji Haywood, DO 01/04/2025 Travel from Last 3 Months Immunizations Immunization Administration [...] How often do you attend chur or shinto services? Patient declined 09/14/2024 Do you belong to any clubs o r organizations such as anabaptism groups, unions, fraternal or athletic groups, or [...] Recorded Patient Health Questionnaire-2 Score 0 01/10/2025 [facility] - Occupational Stress [...] place to sleep or slept in a longterm (including now)? No 06/09/2023 Housing Stability Vital Sign Answer Mauro e Recorded In the last 12 months, was t here a time when you were not able to pay the mortgage or rent on time? No 09/14/2024 In the past 12 months, how m any times have you moved where you were living? 0 09/14/2024 At any time in the past 12 m [facility], were you homeless or living in a longterm (including now)? No 09/14/2024 Sex and Gender [...] Mass Index 29.65 03/27/2025 1:00 PM EDT Plan of Treatment Upcoming Encounters Date Type Department Care Team (Late st Contact Info) Description 08/07/2025 4:30 PM EST Office Visit [facility] [place] [facility] [address] [facility] [address] [place] [address] Seven Santa MD [address] [facility] [address] [place] [address] Health Maintenance Due Date Last Done Comments [...] - 10.5 [CFU]/mL 01/30/2025 11:00 AM EDT [facility] UNCORRECTED WHITE BLOOD COUNT 8.0 4.1 - 10.5 10*3/uL 01/30/2025 11:00 AM EDT [facility] RBC 4.74 3.90 - 5.60 10*6/uL 01/30/2025 11:00 AM EDT [facility] HEMOGLOBIN 14.2 13.0 - 17.0 g/dL 01/30/2025 11:00 AM EDT [facility] HEMATOCRIT 42.1 38.8 - 50.0 % 01/30/2025 11:00 AM EDT [facility] MCV 88.8 83.5 - 101 fL 01/30/2025 11:00 AM EDT [facility] MCH 30.0 27.5 - 35.2 pg 01/30/2025 11:00 AM EDT [facility] MCHC 33.8 32.5 - 35.6 g/dL 01/30/2025 11:00 AM EDT [facility] RED CELL DISTRIBUTION WIDTH, RDW 14.0 12.0 - 14.8 % 01/30/2025 11:00 AM EDT [facility] PLATELET COUNT 256 150 - 450 10*3/uL 01/30/2025 11:00 AM EDT [facility] MEAN PLATELET VOLUME, MPV 7.3 6.6 - 10.1 fL 01/30/2025 11:00 AM EDT [facility] NEUTROPHILS, % 63.7 . % 01/30/2025 11:00 AM EDT [facility] LYMPHOCYTES, % 18.9 . % 01/30/2025 11:00 AM EDT [facility] MONOCYTE/MACROPHA GE, % 13.1 . % 01/30/2025 11:00 AM EDT [facility] EOSINOPHILS, % 3.6 . % 01/30/2025 11:00 AM EDT [facility] BASOPHILS, % 0.7 . % 01/30/2025 11:00 AM EDT [facility] NRBC 0.1 0 - 0.5 /100{WBC} 01/30/2025 11:00 AM EDT [facility] NEUTROPHILS 5.1 1.8 - 7.7 10*3/uL 01/30/2025 11:00 AM EDT [facility] LYMPHOCYTES 1.5 1.00 - 4.8 10*3/uL 01/30/2025 11:00 AM EDT [facility] MONOCYTES 1.1(H) 0.0 - 0.8 10*3/uL 01/30/2025 11:00 AM EDT [facility] EOSINOPHILS 0.3 0.0 - 0.45 10*3/uL 01/30/2025 11:00 AM EDT [facility] BASOPHILS 0.1 0.0 - 0.2 10*3/uL 01/30/2025 11:00 AM EDT [facility] Blood (Blood) 01/30/2025 10: 42 AM EDT 01/30/2025 10:47 AM EDT Saji Haywood DO LAB BLOOD ORDERABLES Final Result Performing Organization Address City/[facility]/ZIP Co de Phone Number [facility] [address] [place] [address], [facility] [address] [place] [address] * Basic metabolic panel (01/30/2025 10:42 AM EDT) Glucose 92 70 - 100 mg/dL 01/30/2025 11:42 AM EDT [facility] Comment: Random Glucose Reference Range is dependent on time and content of last meal. Glucose of more than 200 mg/dL in a nonstressed, ambulatory subject supports the diagnosis of Diabetes Mellitus. ADA recommended reference range BUN 16 7 - 25 mg/dL 01/30/2025 11:42 AM EDT [facility] CREATININE 0.85 0.70 - 1.30 mg/dL 01/30/2025 11:42 AM EDT [facility] ESTIMATED GFR >60.0 01/30/2025 11:42 AM EDT [facility] Sodium 140 136 - 145 mmol/L 01/30/2025 11:42 AM EDT [facility] Potassium, Bld 4.2 3.5 - 5.1 mmol/L 01/30/2025 11:42 AM EDT [facility] Chloride 107 98 - 107 mmol/L 01/30/2025 11:42 AM EDT [facility] Carbon Dioxide 28.2 21.0 - 31.0 mmol/L 01/30/2025 11:42 AM EDT [facility] Anion Gap 9.0 6.0 - 15.0 01/30/2025 11:42 AM EDT [facility] Calcium 9.4 8.6 - 10.3 mg/dL 01/30/2025 11:42 AM EDT [facility] Other Topography unknown / Unknown 01/30/2025 10:42 AM EDT 01/30/2025 10:47 AM EDT us Saji Haywood DO LAB BLOOD ORDERABLES Final Result Performing Organization Address [facility]/ZIP Co de Phone Number [address] [address], [facility] [address] [place] [address] * ECG 12 lead (01/30/2025 10:29 AM EDT) 01/30/2025 10:2 9 AM EDT [facility] 01/30/2025 2:12 PM EDT [facility] [address] [address] Electrocardiograph Report Signed Patient: Tripp Win MR#: [id number] : 1960 Acct:[id number] Age/Sex: 64 / M ADM Date: 01/30/25 [...] change was found Confirmed by Daniel Borjas ([id number]) on 01/30/2025 2:12:17 PM Referred By: Electronically Signed By: Daniel Borjas Transcribed By: MUS Signed By Daniel Borjas MD 01/30/25 1412 Procedure Note Korey Borjas MD - 01/30/2025 [facility] [address] [address] Electrocardiograph Report Signed Patient: Tripp Win AMR#: [id number] : [id number]:[id number] Age/Sex: 64 / MADM Date: 01/30/25 Loc: [...] change was found Confirmed by Daniel Borjas ([id number]) on 01/30/2025 2:12:17 PM Referred By: Electronically Signed By: Daniel Borjas Transcribed By: MUS Signed By Daniel Borjas MD 01/30/25 1412 Saji Haywood DO ECG ORDERABLES Final Resul t [facility] [address] [place] [address], * Colonoscopy (11/12/2020 12:00 PM EDT) Anatomical Region Laterality Modality Endoscopy 11/12/2020 12:0 0 PM EDT Narrative 11/12/2020 12:00 PM EDT PERFORMED AT [facility] LOCATION:[id number] Procedure Note CONVERSION, GENERIC - 12/24/[address] [facility] LOCATION:[id number] Jose Mast ENDOSCOPY PROCEDURE ORDERABLES Final Result * (ABNORMAL) [...] both Cologuard and colonoscopy. (Table 3, Anila Louise al, N Engl J Med 2014;370(14):7724-6352.) The normal value (reference range) for this [...] interval of every 3 years by the [place] [employer] Society and U.S. Multi-Society Task Force. [...] can be accessed at the following location: [email or web address]/results. Additional description of the Cologuard test process, warnings and precautions can be found at www.cologuardtest.com. Rx only. 10/08/2020 Jose Mast [facility] MOLECULAR DI[facility]NOST[facility] YOLANDA VORA Final Result [facility] from Last 3 Months or Most Recently Relevant to Health Maintenance Insurance BCBS Care Teams Take Out Waiter/Waitress Relationship Specialty Start Date End Date Seven Santa MD [address] [facility] [address] [place] [address] PCP - General Internal Medicine 12/16/22 Seven Santa MD [address] [facility] [address] [place] [address] PCP - Beata Vásquez 11/08/24
--- OUTSIDE RECORDS SUMMARY | 2025-03-30 16:41 | XMS_ITS | Encounter Summary ---
Author Organization [facility] Address [address] [facility] [place] [address] Care Team Providers Care Clinical Education Coordinator Name Role Phone Seven Santa MD Primary Care Provider [phone] Seven Santa MD Unavailable [phone] Encounter Details Date Type Department Care Team (Late st Contact Info) Description 02/07/2025 Abstract [facility] [place] [facility] [address] [facility] [address] [place] [address] Seven Santa MD 112 [facility] [address] [place] [address] Social History Tobacco Use Types Packs/Day Years [...] often do you attend [facility] or mu-ism services? Patient declined 09/14/2024 Do you belong to any clubs o r organizations such as scientology groups, unions, fraternal or athletic groups, or [...] Recorded Patient Health Questionnaire-2 Score 0 01/10/2025 [facility] Occupat ionme Health - Occupational Stress Questionnaire Answer Date [...] place to sleep or slept in a detention (including now)? No 06/09/2023 Housing Stability Vital Sign Answer Mauro e Recorded In the last 12 months, was t here a time when you were not able to pay the mortgage or rent on time? No 09/14/2024 In the past 12 months, how m any times have you moved where you were living? 0 09/14/2024 At any time in the past 12 m [facility], were you homeless or living in a detention (including now)? No 09/14/2024 Sex and Gender [...] [address] [facility] [address] [place] [address] Seven Santa MD [address] [place] [address] [place] [address] documented as of this encounter Visit Diagnoses Not on filedocumented in this encounter Care Teams Clinical Education Coordinator Relationship Specialty Start Date End Date Seven Santa MD [address] [facility] [address] [place] [address] PCP - General Internal Medicine 12/16/22 Seven Santa MD [address] [facility] [address] [place] [address] PCP - [employer] [employer] 11/08/24 documented as of this encounter
[2025-03-30 16:54] LABS: Hematocrit 41.6 % (42.0-54.0); Hemoglobin 13.6 g/dL (14.0-18.0); Immature Granulocytes Abs Auto 0.02 10^3/uL (0.00-0.03); Immature Granulocytes Pct Auto 0.3 % (0.0-0.5); Lymphocytes Absolute Auto 1.6 10^3/uL (1.2-3.8); Mean Corpuscular HGB Conc 32.7 g/dL (29.9-35.2); Mean Corpuscular Hemoglobin 29.6 pg (25.9-34.0); Mean Corpuscular Volume 90.6 fL (80.0-94.0); Platelet Count 235 10^3/uL (150-450); Red Blood Count 4.59 10^6/uL (4.70-6.10); White Blood Count 7.3 10^3/uL (4.0-11.0)
[2025-03-30 17:46] LABS: Anion Gap 10.3; Blood Urea Nitrogen 17.0 mg/dL (7.0-18.0); Calcium 9.0 mg/dL (8.5-10.1); Carbon Dioxide 27.5 mmol/L (21.0-32.0); Chloride 108 mmol/L (98-107); Estimated GFR (African America >60 (>=60 mL/min/1.73m^2); Estimated GFR (Non-African Ame >60 (>=60 mL/min/1.73m^2); Glucose 95 mg/dL (74-106); Potassium 3.8 mmol/L (3.5-5.1); Sodium 142 mmol/L (136-145)
== END 2025-03-30 16:37 | disposition home or self-care (01) ==
PROVIDERS: PCP Internal Medicine; Visit Provider Internal Medicine Interventional Cardiology
DX: R06.09 Other forms of dyspnea (principal)
CPT/HCPCS: 36415; 80048; 85025

== ENCOUNTER 2025-07-26 07:58 | Outpatient (OUT) | payer BC, SELFPAY ==
--- OUTSIDE RECORDS SUMMARY | 2025-07-16 19:08 | XMS_ITS | Continuity of Care Document ---
Author Organization [facility] Address [address] [place] [address] Phone Care Team Providers Care Tax Representative Name Role Phone Seven Santa II Primary Care Provider Nola Villasenor NP Attending Provider James West MD Attending Provider [phone] James West MD Other Provider Care Teams Patient Care Team Team Status: Active Member Role/Relationship Status Dates Seven Santa II MD Primary Care Provider Active Visit Care Team Team Status: Inactive Member Role/Relationship Status Dates Seven Santa II MD Primary Care Provider Active Start: April 18, 2025 End: April 18, 2025PeDeborah Burkett ProviderActiveStart: April 18, 2025 End: April 18, 2025 Visit Care Team Team Status: Inactive Member Role/Relationship Status Dates Seven Santa II MD Primary Care Provider Active Start: May 24, 2025 End: May 24, 2025Dalui West MDAttfavio ProviderActiveStart: May 24, 2025 End: May 24, 2025 Visit Care Team Team Status: Inactive Member Role/Relationship Status Dates Seven Santa II MD Primary Care Provider Active Start: May 25, 2025 End: May 25, 2025Peggy Villasenor , NPAttending ProviderActiveStart: May 25, 2025 End: May 25, 2025 Visit Care Team Team Status: Inactive Member Role/Relationship Status Dates Seven Santa II MD Primary Care Provider Active Start: May 25, 2025 End: May 25, 2025Pealbin Villasenor NPAttending ProviderActiveStart: May 25, 2025 End: May 25, 2025 Visit Care Team Team Status: Inactive Member Role/Relationship Status Dates Seven Santa II MD Primary Care Provider Active Start: June 19, 2025 End: June 19, 2025Pealbin Villasenor NPAttfavio ProviderActiveStart: June 19, 2025 End: June 19, 2025 Visit Care Team Team Status: Inactive Member Role/Relationship Status Dates Seven Santa II MD Primary Care Provider Active Start: June 20, 2025 End: June 20, 2025DaMadeleine Steel ProviderActiveStart: June 20, 2025 End: June 20, 2025 Visit Care Team Team Status: Active Member Role/Relationship Status Dates Seven Santa II MD Primary Care Provider Active Start: June 27, 2025 Madeleine Mcmullen ProviderActiveStart: June 27, 2025 Katelynn Mcmullen ProviderActiveStart: June 27, 2025 Chief Complaint and Reason for Visit Chief Complaint Admit Date GABINO/Inspire Activation follow up 2024 11:02am Inspire May 24, 2025 1 1:30am Obstructive sleep apnea May 25 1:45pm GABINO/Inspire follow up May 25, 2025 1:47pm inspire follow up June 19, 2025 2:57pm GABINO/Inspire Fine Tune June 20 7:32pm GABINO/Inspire Fine Tune June 27 12:00am Reason for Visit Admit Date Encounter for adjustment and management of other implanted nervous system d April 18, 2025 11:02am Obstructive sleep apnea April 18, 11:02am Presence of neurostimulator April 11:02am Encounter for adjustment and management of other implanted nervous system d May 25, 2025 1:47pm Obstructive sleep apnea May 25 1:47pm Presence of neurostimulator May 1:47pm Encounter for adjustment and management of other implanted nervous system d June 19, 2025 2:57pm Obstructive sleep apnea June 19, 2 025 2:57pm Presence of neurostimulator June 2:57pm Allergies, Adverse Reactions, Alerts Allergen Type Severity Reaction Last Updated Verified Status Comments Penicillins Allergy Unknown Unknown Reaction February 13, 2025 5:41am Yes Active Childhood reaction gabapentin Allergy Unknown Confusion February 13, 2025 5:41am Yes Active Social History Smoking Status Status Start Date End Date Date of Observa tion Never smoked tobacco (finding) June 19, 2025 3:01pm Observation Status Observation Response Date of Response Legal Sex [facility] (finding) [facility] 1959Gender IdentityCisgender/Not transgender (finding)June 19isgender/Not transgender (finding) June 19isgender/Not transgender (finding)June 19, 2025 Cisgender/Not transgender (finding)June 19isgender/Not transgender (finding)June 19, 2025Sexual OrientationUnknownUnknownUnknownUnknown Unknown Family History Relationship Condition Age at Onset Recorded Date/T dari father Diabetes mellitus Unknown DeceasedUnknownmotherHeart diseaseUnknownDeceasedUnknownHypertensionUnknown Problems Active Problems Problem Diagnosis/Recorded Date Onset Date Stat Acute right otitis media July 12, 2024 9:49am Unk nown Active Presence of neurostimulator March 21, 2025 12:04pm Unknown Active Obstructive sleep apnea November 16, 2023 8:09am Unknown Active Encounter for adjustment and management of other implanted nervous system device March 21, 2025 10:20am Unknown Active Acute sinusitis July 05, 2024 6:51pm Unknown Active Intolerance to BiPAP/CPAP May 24, 2024 12:33pm U nknown Active BMI 29.0-29.9,adult March 21, 2025 12:04pm Unknown Active Allergic rhinitis November 28, 2024 4:24pm Unknown Active Medications Medication Status Dose Units Route Directions Qty Days Refills S tart Date Stop Date End Date Reason(s) Instructions Adherence Triamcinolone Acetonide (24 Hour Nasal Allergy) 55 mcg aerosol,spray Discontinued 2 SPRAY INTRANASAL Peyton y January 29, 2025 11:00pmAugust 2024 10:07amadminister into each nostril Sodium Chloride (Nasal Moisturizing) 0.65 % aerosol,kwybcHgxscq2OSXJJZWUJOWYVVM Twice daily as needed for nasal congestionJune 2024 11:00pmUnknown Cetirizine-Pseudoephedrine (All Day Allergy-D) 5-120 mg tablet extended release 12 zoVmcyuuzalukd3WTAOBFlubv 12 hours as needed for sinus symptomsJune 2024 11:00pmAugust 2024 10:06amCyanocobalamin (Vitamin B-12) (Vitamin B- 12) 500 mcg vvgbneFbvtvf844CFBPADobcnUyoi 22nd, 2025 11:00pmUnknownVitamin E (Dl, Acetate) 450 mg (1,000 unit) jqprbxjCcyifxcbcrit835DLDMIkxwlIjyq 22nd, 2025 11:00pmOctober 2024 1:11pmIbuprofen (Advil) 200 mg calcmtFmsgcwzwsqlt114GQ POEvery 6 hours as needed for painJune 2024 11:00pmOctober 2024 1:11pmTurmeric 400 mg xharhkjHieczm575KVTQTsytm dailyJun2024 11:00pm UnknownAscorbic Acid (Vitamin C) 500 mg YdrxxiIvfwncurwryt5YICRBNgrcvCvwslk 2016 11:00pmNovember 2023 4:34pmCholecalciferol (Vitamin D3) (Vitamin D3) 1,000 unit MyetpkrBjeuma5878KKLJWBVtsgoSfotbo 2016 11:00pm UnknownLevothyroxine 125 mcg KswybeIbauqinhlewh742IWCMRYwwplDygjdt 2016 11:00pmNovember 2023 4:36pmVit A,C And M-Dtejom-Sldtwfil (Opti-Vitamins) 1,000 unit-200 mg-60 unit-2 mg OoihiuSepvvwjlrdcb1AXHSZUgdgfZcsxnp 2016 11:00pmJune 2024 9:44amKrill Gtq-Ttbmh-5-Dha-Epa 300-90 (27-45) mg Capsule Cfmnun6FXMBTHrosiAsunim 2016 11:00pmUnknownSennosides-Docusate Sodium (Dok Plus) 8.6-50 mg HxfrzjDdzadigdnxqb3KDHLRFSykqv cthgr92369Nkaasqvjr 6th, 2017 11:00pmNovember 2023 4:35pmOxycodone-Acetaminophen 5-325 mg Tablet Cawrgpjohczr1CHQHRPN3Q as needed for Pain scale 1 - 460471Rqamdgwoy 6th, 2017 11:00pmApril 2023 8:23amDiazepam 5 mg DxliwfVgakuogzkojk3WNGCUbiy times daily as needed for Syvifat02248Swlpyoezu 6th, 2017 11:00pmApril 2023 8:24amSulfamethoxazole-Trimethoprim (Bactrim Ds) 800-160 mg sktgsySwhukzuwunrz78 ZCCIF87N215Sfkdwhock 6th, 2017 11:00pmApril 2023 8:23amLevothyroxine 125 mcg ffrrtqIcpgsuohwewp637.5MCGPODailyNov2023 4:34pmDecemb2023 9:11amAlpha Lipoic Acid 600 mg vagpejyHsyhba517MBKXUhbxyBsfgs 7th, 2024 11:00pmUnknownCelecoxib 200 mg cqwsfbbIdmqak496IHPUNvgxv dailyApr2023 11:00pmUnknownLevothyroxine 137 mcg mqzlmqDnihlu341WORMZMdovj morningJuly 12, 2024 12:00amUnknownTurmeric Root Extract 500 mg capsuleDiscontinuedMGPO July 12, 2024 12:00amJune 2024 9:43amOfloxacin 0.3 % drops Zftlntofaldp54TMXTVODU-QWBNCOjqjq jeuft04315Cxnpmgci 3rd, 2024 12:00amApril 2024 3:35pmPrednisone 20 mg isoxxdOphyqgwmqihz56JPFIRlmmo998Vfldbsfd 3rd, 2024 12:00amApril 2024 3:35pmcetirizine-pseudoephedrine (Zyrtec-D)ActivePO [place] 2024 11:00pmUnknowntriamcinolone acetonide (Nasacort Allergy)Active INTRANASALAugus2024 11:00pmUnknownDoxycycline Hyclate 100 mg capsule Qxenxwbcebuy674YIOOPdjir urxle22923Nuidjlun 2023 12:00amJune 2024 9:42amred beetActivePOSeptember 2024 11:00pmUnknown Immunizations Immunization Event Date Not Given Reason Dose Number Stabilizer Operator Lot Number Reason(s) Given Vaccine Information Statement (VIS) Detail Administration Location COVID-19 mRNA, Comirnaty ([place]) October 19 DC2185NKGPJ-65 mRNA, Comirnaty ([place])November [id number]-39 mRNA, Comirnaty ([place])August 30, 2021FL3198Tetanus, Diphtheria adult, 5 Lf pres free absFebruary 2017Tetanus, Diphtheria, Pertussis (Tdap)March 04, 2017 Tetanus, Diphtheria, Pertussis (Tdap)May 04, 2023 Medical Equipment Device Date Implanted Device Details SURGIFOAM POWDER April 15, 2017 February 13, 2025UDI: ()[id number] Issuing Agency: [facility] Device Id: [id number] Expiration Date: 2027-04-29 Lot Number: [id number] sleep apnoea treatment system, respiration-sensing February 13, 2025UDI: ()[id number] Issuing Agency: [facility] Device Id: [id number] Expiration Date: 2027-08-29 Lot Number: [id number] 2024UDI: ()[id number] Issuing Agency: [employer] Device Id: [id number] Expiration Date: 2027-12-14 Serial Number: [id number] Vital Signs Vital Reading Result Reference Range Collection Date/Time Height 68 [in_i] April 18, 2025 10:71llHekeah55.81 kgSeptember 2024 10:17amHeart Rate72 /diu54-694Yxcyjmlbv 2024 10:17amOxygen saturation by Pulse rruymteo18 % 95-100September 2024 10:17amBP Zrawfccx111 mm[Hg]100-140September 2024 10:17amBP Ybsmzfoct48 mm[Hg]60-100September 2024 10:17amBMI (Body Mass Index)30.1 kg/m6Pfbzmjpoi 2024 10:88cgQnagbr85 [in_i]May 25, 2025 1:27otSaeped16.99 kgOctthe [facility] 2024 1:11pmHeart Rate80 /zmr90-360Yrzarnq 2024 1:11pmOxygen saturation by Pulse alcjyyfr91 %95-100[facility] 2024 1:11pmBP Iuehxtch853 mm[Hg]100-140[facility] 20[facility] 1:11pmBP Qsnloxcal99 mm[Hg]60-100[facility] 2024 1:11pmBMI (Body Mass Index)29.5 kg/w2Jaqvbtp 2024 1:11avEivofl17 [in_i]June 19, 2025 3:73ibTvuhip28.53 kgNov2024 3:11pmOxygen saturation by Pulse ibtsoska72 %95-100Nov2024 3:11pmBP Whmgyfce868 mm[Hg]100-140Nov2024 3:11pmBP Iqqsehhff14 mm[Hg]60-100Nov2024 3:11pmBMI (Body Mass Index)31.0 kg/j6Tgijbinl2024 3:11pm Advance Directives Advance Directive Response Recorded Date/ Time Advance Directives No April 03, 2017 3:23pm Insurance Providers Guarantor Tripp Win Address [address] [place] [id number] Info.Home Phone: Payer Group Member ID Coverage Type Subscriber Relationship to Subscriber Effective Date Expiration Date Beata HOYT Id: [id number] T Baker Id: [id number] [address] [place] [id number] Home Phone: Encounters Encounter Location(s) Arrival/Admit Date Discharge/Departure Date Discharge/Departure Disposition Provider(s) Departed Physician/ Provider Office Visit -[facility] April 18, 2025 11:02am April 18, 2025 1:37pm Discharged to home care or self care (routine discharge) Nola Villasenor NP Departed Clinical -Sleep Lab May 24, 2025 11:30am May 24, 2025 11:31am Discharged to home care or self care (routine discharge) James West MD Departed Clinical -Sleep Lab May 25, 2025 1:45pm May 25, 2025 1:46pm Discharged to home care or self care (routine discharge) Nola Villasenor NP Departed Physician/ Provider Office Visit -[facility] May 25, 2025 1:47pm May 25, 2025 3:00pm Discharged to home care or self care (routine discharge) Nola Villasenor NP Departed Physician/ Provider Office Visit -[facility] June 19, 2025 2:57pm June 19, 2025 11:59pm Discharged to home care or self care (routine discharge) Nola Villasenor NP Departed Clinical -Sleep Lab June 20, 2025 7:32pm June 20, 2025 7:33pm Discharged to home care or self care (routine discharge) James West MD Non-patient / Non-visit -[facility] June 27, 2025 12:00am James West MD Recent Diagnosis Onset Date Admit Date Encounter for adjustment and management of other implanted nervous system d Unknown April 18, 2025 1 1:02am Obstructive sleep apnea Unknown Septembe r 2024 11:02am Presence of neurostimulator Unknown Sept ember 2024 11:02am Encounter for adjustment and management of other implanted nervous system d Unknown May 25, 2025 1: 47pm Obstructive sleep apnea Unknown May 25, 2025 1:47pm Presence of neurostimulator Unknown Octo 2024 1:47pm Encounter for adjustment and management of other implanted nervous system d Unknown June 19, 2025 2 :57pm Obstructive sleep apnea Unknown June 19, 2025 2:57pm Presence of neurostimulator Unknown Nove mb2024 2:57pm Assessments Diagnosis Onset Date Resolution Status Admit Date Encounter for adjustment and management of other implanted nervous system d acuteSeptember 2024 11:02amObstructive [facility]acute[facility] 11:02amPresence of neurostimulatoracuteSelect [facility] 2024 11:02amEncounter for adjustment and management of other implanted nervous system dacuteBe[facility] 2024 1:47pmObstructive sleep apneaacuteOctthe medical center 2024 1:47pmPresence of neurostimulatoracuteOctthe medical center 2024 1:47pmEncounter for adjustment and management of other implanted nervous system [facility]acute[facility] 2:57pm [facility]acute[facility] 2024 2:57pmPresence of neurostimulatoracuteN[facility] Hospital 2024 2:57pm Plan of Treatment Author Nola [facility] 2024 1:46pmThe patient presents today regarding the Inspire Therapy device. The device was interrogated and found to be functioning well. He has had excellent clinical response and has been able to increase the settings steadily without problems. He is not aware of snoring, and definitely feels more alert and awake in the morning. He has good energy through the day. We assessed movement at current 0.8 V, electrode A, with good response. Final settings at this visit were set at current 0.9 V, range 0.7 to 1.7 V, electrode A. The device is programmed with 30-minute delays to initiation, pause delay of 15 min, duration increased to 10 hours. Gradual titration as directed and plan discussed in detail. Patient is advised to return as scheduled, and to call sooner if problems. His previous obstructive sleep apnea was treated first by CPAP and now by inspire therapy Inspire device is appropriately located, scars are healing well, tongue movement unremarkable Author Nola [facility] 2024 3:02pmThe patient presents today regarding the Inspire Therapy device. The device was interrogated and found to be functioning well. He has had excellent clinical response and has been able to increase the settings steadily without problems. He is not aware of snoring, and definitely feels more alert and awake in the morning. He has good energy through the day. We assessed movement at current 1.0 V, electrode A, with good response. Final settings at this visit were set at current 1.0 V, range 0.7 to 1.7 V, electrode A. The device is programmed with 30-minute delays to initiation, pause delay increased to 20 min, duration increased to 10 hours. Gradual titration as directed and plan discussed in detail. Patient is advised to return for one more follow up prior to the PSG fine tune, and to call sooner if problems. His previous obstructive sleep apnea was treated first by CPAP and now by inspire therapy Inspire device is appropriately located, scars are healing well, tongue movement unremarkable Author Nola Villasenor CentervilleAuthoredNovember 2024 3:43pmThe patient presents today regarding the Inspire Therapy device. The device was interrogated and found to be functioning well. He has had excellent clinical response and was able to increase his levels as instructed. He is not aware of snoring, and definitely feels more alert and awake in the morning. He has good energy through the day. We assessed movement at current 1.1 V, electrode A, with good response. Final settings at this visit were set at current 1.1 V, range 0.7 to 1.7 V, electrode A. The device is programmed with 30-minute delays to initiation, pause delay increased to 30 min, duration 10 hours. The patient is advised to proceed with PSG fine tune scheduled for tomorrow 06/20/2025. His previous obstructive sleep apnea was treated first by CPAP and now by inspire therapy Inspire device is appropriately located, scars are healing well, tongue movement unremarkable Future Tests Future scheduled test information is unavailable Pending Tests Pending diagnostic test information is unavailable Future Visits Future appointment information is unavailable Future Procedures Future procedure information is unavailable Future Medications Future medication information is unavailable Patient Instructions Patient instructions are unavailable
--- NOTE | 2025-07-26 08:00 | CA_ITS ---
Patient Name: YASH ZAYAS MR#: [id number] : 1960 Exam Date: 07/26/2025 Ordering Doctor: DR JORY DENNISON M.D. ECHOCARDIOGRAM REPORT PROCEDURE: CA ECHO DOPPLER COMPLETE INDICATIONS: Nonrheumatic aortic valve stenosis COMPARISON: None. DESCRIPTION: COMPLETE ECHOCARDIOGRAM Real-time transthoracic echocardiography with 2D, M-mode, spectral and color flow Doppler performed. QUALITY: Technical quality was good. LEFT VENTRICLE: Normal chamber size. Normal left ventricular wall thickness. Normal systolic function. Estimated left ventricular ejection fraction is 55%. LV EF: Normal left ventricular ejection fraction, (55%). DIASTOLIC: Normal diastolic function. ATRIAL SEPTUM: Visually appears intact. LEFT ATRIUM: Normal chamber size. RIGHT ATRIUM: Normal chamber size. RIGHT VENTRICLE: Normal chamber size. Normal right ventricular systolic function. TRICUSPID VALVE: Normal mobility and thickness. No stenosis with trivial regurgitation. No evidence of pulmonary hypertension. RVSP 34 mmHg MITRAL VALVE: Normal mobility and thickness. No evidence of mitral valve stenosis. Mild mitral annular calcification. No mitral regurgitation. AORTIC VALVE: Trileaflet appearance. Moderately calcified aortic valve. Moderately diminished mobility. Doppler velocity suggest moderate aortic valve stenosis. Right coronary cups appear to be immobile. DVI 0.24, LLUVIA 1.0 cm2, Vmax 2.64 m/s, peak/mean PG 28/13 mmHg. Mild aortic regurgitation. AORTIC ROOT: Normal diameter and appearance, measuring 3.9 cm. Ascending aorta is normal in diameter (3.6 cm). PULMONIC VALVE: Normal thickness and mobility. No stenosis. Trivial regurgitation. PERICARDIUM: No evidence of pericardial effusion. IVC: Collapses with inspiration. PLEURA: CONCLUSION: 1. Normal left ventricular size and systolic function. Estimated LVEF is 55%. 2. Normal right ventricular size and systolic function. 3. Normal diastolic function. 4. Moderate aortic valve stenosis. 5. Mild aortic regurgitation. 6. Normal right-sided pressures. Adult Echocardiography Procedure Report Left Ventricle LVEDD (3.7 - 5.6 cm): 4.40 cm LVESD (2.2 - 4.0 cm): 3.08 cm LVIVS thickness (0.6 - 1.2 cm): 1.13 cm LVPW thickness (0.5 - 1.0 cm): 1.04 cm e': 0.10 m/s E - e': 4.95 LVOT Max Gradient: 1.62 mm[Hg] LVOT Area (cm2): 0.64 m/s Peak Velocity (LVOT): 0.64 m/s Mean Velocity (LVOT): 0.40 m/s LVOT Diameter 2.27 cm Left Ventricular Ejection Fraction: 55 % Left Atrium LA Volume Index (2D A2C): 27.88 ml/m2 Left Atrium Systolic Dimension: 3.11 cm Mitral Valve MV E to A Ratio: 0.77 Mitral Valve A-Wave Peak Velocity: 0.63 m/s Mitral Valve E-Wave Peak Velocity: 0.49 m/s Right Ventricle Aorta AO Root Diam: 3.94 cm Ascending Ao Diam: 3.57 cm Aortic Valve AoV Area (Peak Maverick): 0.76 cm2, 0.90 cm2 AoV Area (VTI): 0.82 cm2, 0.97 cm2 Peak Velocity(Antegrade Flow): 2.23 m/s, 2.29 m/s, 2.64 m/s Peak Gradient(Antegrade Flow): 19.88 mm[Hg], 20.96 mm[Hg], 27.90 mm[Hg] Mean Velocity(Antegrade Flow): 1.37 m/s, 1.56 m/s, 1.60 m/s Mean Gradient(Antegrade Flow): 9.26 mm[Hg], 11.09 mm[Hg], 12.97 mm[Hg] Velocity Time Integral: 50.58 cm, 49.17 cm, 60.32 cm Tricuspid Valve Peak Velocity (Regurgitant Flow): 2.77 m/s Pulmonic Valve Mean Gradient: 1.57 mm[Hg] Mean Velocity: 0.59 m/s Peak Velocity: 0.85 m/s Peak Gradient: 2.89 mm[Hg] Right Atrium Right Atrium Systolic Pressure: 55.66 ml, 55.66 ml Dictated by: Daniel Brunson M.D. on 07/26/2025 at 20:09 Approved by: Daniel Brunson M.D. on 07/26/2025 at 20:18
--- OUTSIDE RECORDS SUMMARY | 2025-07-26 08:00 | XMS_ITS | Clinical Summary ---
Author Organization [employer] Address [id number] [address] [place] [address] Care Team Providers Care Psychiatric Technician Name Role Phone Seven Santa MD Primary Care Provider [phone] Allergies Active AllergyReactionsCriticalityNoted XqgcCbqqgqqtYbzzxpefcwy79/25/2020 Medications MedicationSigDispense QuantityRefillsLast FilledStart DateEnd DateStatus levothyroxine (SYNTHROID, LEVOTHROID) 125 MCG tablet Take 137 mcg by mouth daily. Active celecoxib (CeleBREX) 200 mg capsule Take 1 capsule by mouth 2 (two) times a day. 10/04/2020ctive folic acid/multivit-min/lutein (CENTRUM SILVER ORAL) Take by mouth.Active KRILL OIL ORAL Take 1,000 mg by mouth daily.Active cholecalciferol, vitamin D3, (VITAMIN D3) 2,000 units capsule Take 2,000 Units by mouth daily.Active tiZANidine (ZANAFLEX) 4 mg tablet 1/2-1 tablet as sxnecw4508/06/2021ctive Active Problems ProblemNoted DateDiagnosed DateHyperplastic polyp of sigmoid colon11/19/2020 Diverticulosis large intestine w/o perforation or abscess w/o ifhtjtao50/12/2021 Positive colorectal cancer screening using Cologuard test10/25/2020 Family History Medical HistoryRelationNameCommentsAsthmaBrotherScoalicia WinNo Known Problems Daughter 1No Known ProblemsDaughter 2No Known ProblemsDaughter 3No Known ProblemsDaughter 4Heart diseaseFatherThyroid diseaseFatherCoronary artery diseaseMotherGlaucomaMotherHeart diseaseMotherHyperlipidemiaMotherRelationName StatusCommentsBrotherSgaalicia CarvalhoveDauter 1AliveDaughter 2AliveDaughter 3 AliveDaughter 4AliveFatherAliveMotherDeceasedSisterAlive Social History Tobacco UseTypesPacks/DayYears UsedDateSmoking Tobacco: NeverSmokeless Tobacco: NeverAlcohol UseStandard Drinks/WeekCommentsYes0 (1 standard drink = 0.6 oz pure alcohol)socially on weekends onlyChildcareAnswerDate RecordedChildcareUnknown 01/19/2019EmploymentAnswerDate EvvsxoawFwxfjngbwkGwiywzw20/12/2019Purpose - Life AnswerDate RecordedPurpose and direction in dmwmRhttuay48/11/2021ex and Gender InformationValueDate RecordedSex Assigned at BirthNot on fileLegal SexMale 03/15/2015 11:37 AM EDTGender IdentityNot on fileSexual OrientationNot on file Last Filed Vital Signs Vital SignReadingTime TakenCommentsBlood Yvqlzwyg320/8809 12:00 PM EDT Fohei711705/07/2022 12:00 PM LBTJdzhxpcuhmk52 ??C (98.6 ??F)05/07/2022 8:41 AM EDT Respiratory Enll046005/07/2022 12:00 PM EDTOxygen Lkqjtsknov32%05/07/2022 12:00 PM EDTInhaled Oxygen Concentration--Fxwcxe77.5 kg (195 lb)05/07/2022 8:28 AM EDT Ndvzov588.7 cm (5' 8 )05/07/2022 8:28 AM EDTBody Mass Index29.6509 8:28 AM EDT Plan of Treatment Health MaintenanceDue DateLast DoneCommentsDepression Suubaovno30/15/1971Tobacco Ujxlwohmj28/15/1971Adult BMI Veaacmarq96/15/1977Fall Risk Jdliojpiv34/15/2024 COVID-19 Vaccine ( season)501/, 11/16/2020, 10/19/2020Influenza Vdvsyth42/06/2021, 07/06/2019, 05/19/2018, Additional history yjdqpdDfpyoeyhyer08/05/203104/12/2020, 1DTaP,Tdap and Td Vaccines (4 - Td or Tdap)/, 09/28/2017, 03/04/2017RSV ( or age 60+ yrs) (1 - 1-dose 75+ series)2034Zoster (Shingles) RyxhlzpIcuwoqlxt59/12/2020, 07/10/2019, 11/15/2016 Medical Devices ImplantedTypeAreaManufacturerDevice IdentifierShelf Expiration DateModel / Serial / LotMesh 3in Lg Pp Srgpro Nabsb Knit Plg Srg Strl Clr Hrn Rpl [id number] - [id number] - [id number] Implanted:Qty[facility] AbdomenMEDTRONIC [facility]01/07/2026SMPL-01 / [id number] / [id number] 4.7x3in Plstr Parietex Progrip Lt Flp Slf Fx - [id number] - [id number] Implanted:Qty: 1 on 06/03/2021 by Graham Hanson MD at [facility]: AbdomenMEDTRONIC [facility]04/09/[id number] / [id number] / [id number] Insurance MemberSubscriberPlan / Payer (Effective 2020-Present)Name:Tripp Win Relation to Subscriber:SpouseName:JANAY WIN Date of :1966 Address: [address] [place] [address] Payer ID:[id number] (NAIC) Type:Not on file Address: [facility] [address] [place] [id number] Care Teams Team MemberRelationshipSpecialtyStart DateEnd Date Seven Santa MD [address] [facility], [address] [address] PCP - GeneralInternal Oxszkumi34/12/21
--- OUTSIDE RECORDS SUMMARY | 2025-07-26 08:00 | XMS_ITS | Clinical Summary ---
Author Organization [facility] Address [address] [address] Care Team Providers Care Stage Set Up Worker Name Role Phone Seven Santa MD Primary Care Provider [phone] Allergies Active AllergyReactionsCriticalityNoted DateCommentsGabapentinGI intolerance 12/25/2021 sleep paralysis Penicillin LYpswQdo91/30/2023 Medications MedicationSigDispense QuantityRefillsLast FilledStart DateEnd DateStatus Krill Oil 300 MG capsule 1 (one) time each day at the same timeActive cholecalciferol (Vitamin D-3) 25 MCG (1000 UT) capsule 1 capsule 1 (one) time each day at the same timeActive Alpha-Lipoic Acid ER 600 MG tablet sustained-release 24 hour Daily3Active [facility] Turmeric Curcumin 500 MG capsule 4Active zhgacqde-duvumzflk-dzmUMESDgmzxz (Polydex) 3.5-72372-1.1 ointment ophthalmic ointment Apply to both eyes5Active celecoxib (CeleBREX) 200 MG capsule Indications:Lipids blood increasedTAKE 1 CAPSULE BY MOUTH TWICE A DAY WITH FOOD 180 capsule 5Active cetirizine-pseudoephedrine (ZyrTEC-D) 5-120 MG 12 hr tablet Take 1 tablet by mouth at bedtimeActive Misc Natural Products (PROSTATE HEALTH PO) Take 2 tablets by mouth in the morning.Active levothyroxine (Synthroid, Levoxyl) 137 MCG tablet Indications:Acquired hypothyroidismTAKE 1 TABLET BY MOUTH EVERYDAY IN THE MORNING BEFORE MEALS 90 tablet 5Active Active Problems ProblemNoted DateDiagnosed DateAneurysm of ascending aorta without rupture 02/08/2025 Overview (02/08/2025): 4.1 cm on 01/2025 ECHO Aortic stenosis, mild02/08/2025Nonrheumatic tricuspid valve regurgitation 02/08/2025omplication of ventilation alxsdxf02/13/2024Abnormal gait06/08/2023 Acquired hsebulonbjwkoc49/30/2023ervical radiculopathy due to degenerative joint disease of spine06/08/2023ontinuous positive airway pressure dependent 06/08/2023egeneration of lumbar intervertebral disc06/08/2023ifficulty walking 06/08/2023iverticulosis large intestine w/o perforation or abscess w/o bleeding 06/08/2023Left inguinal hdacmv1906/08/2023Leg length /30/2023Mixed amjlwncpgcwrnu07/30/2023Obstructive sleep apnea (adult) (pediatric)06/08/2023 Other chronic pain06/08/2023iriformis syndrome of left side06/08/2023ost traumatic stress disorder (PTSD)06/08/2023Sciatica of left side06/08/2023Facet syndrome, bpfyxn5802/24/2022Lumbosacral spondylosis without rkovredfst85/18/2022 Hyperplastic polyp of sigmoid colon11/19/2020ositive colorectal cancer screening using Cologuard test10/25/2020 Resolved Problems ProblemNoted DateDiagnosed DateResolved DateAcute right otitis media02/20/2025 5Acute pzvsytdqn64/14/54719702/20/2025 Encounters DateTypeDepartmentCare CrhzZaekqddfeyx15/19/2025bstract [facility] [place] [facility] [address] [place] [address] Seven Santa MD 06/20/2025bstract [facility] [place] [facility] [address] [place] [address] Seven Santa MD 05/29/2025bstract [facility] [place] [facility] [address] [place] [address] Seven Santa MD from Last 3 Months Immunizations ImmunizationAdministration DatesNext DueInfluenza, injectable, quadrivalent 05/20/2021Influenza, seasonal, intradermal, preservative free07/06/2019, 05/19/2018,07/08/2017Pneumococcal Polysaccharide KUME6575Td (adult), 5 Lf tetanus toxoid, preservative free, fbciskve99/19/3977Wzol69/25/2023, 03/04/2017Zoster, Mwpekxhosiy96/12/2020,07/10/2019Zoster, live11/15/2016 Family History Medical HistoryRelationNameCommentsHeart diseaseFatherDon BalerHeart disease MotherEvelyn BakerRelationNameStatusCommentsFatherDon BalerAliveMotherEvelyn BakerDeceased Social History Tobacco UseTypesPacks/DayYears UsedDateSmoking Tobacco: NeverSmokeless Tobacco: Never Tobacco Cessation:Counseling Given: Not Answered Alcohol UseStandard Drinks/WeekCommentsNot Currently0 (1 standard drink = 0.6 oz pure alcohol)Occasionally during jopxgbH8357 Health LiteracyAnswerDate Recorded How often do you need to have someone help you when you read instructions, pamphlets, or other written material from your doctor or pharmacy?Never 09/14/2024Humiliation, Afraid, Rape, and Kick questionnaireAnswerDate Recorded Within the last year, have you been afraid of your partner or ex-partner?No 06/09/2023Within the last year, have you been humiliated or emotionally abused in other ways by your partner or ex-partner?No06/09/2023Within the last year, have you been kicked, hit, slapped, or otherwise physically hurt by your partner or ex-partner?No06/09/2023Within the last year, have you been raped or forced to have any kind of sexual activity by your partner or ex-partner?No06/09/2023 Social Connection and Isolation PanelAnswerDate RecordedIn a typical week, how many times do you talk on the phone with family, friends, or neighbors?More than three times a week09/14/2024How often do you get together with friends or relatives?Once a week09/14/2024How often do you attend catholic or scientology services?Patient mfegqqnq67/05/2025Do you belong to any clubs or organizations such as catholic groups, unions, fraternal or athletic groups, or school groups?No 09/14/2024How often do you attend meetings of the clubs or organizations you belong to?Never09/14/2024re you , , , , never , or living with a partner?Dzkheva9809/14/2024UDIT-CAnswerDate RecordedQ1: How often do you have a drink containing alcohol?Monthly or less09/14/2024Q2: How many drinks containing alcohol do you have on a typical day when you are drinking?1 or Q3: How often do you have six or more drinks on one occasion?Never09/14/2024Overall Financial Resource Strain (CARDIA)AnswerDate RecordedHow hard is it for you to pay for the very basics like food, housing, medical care, and heating?Not hard at all09/14/2024PHQ-2AnswerDate Recorded Patient Health Questionnaire-2 Dmwqz473Fin[facility] [place] of Occupational Health - Occupational Stress QuestionnaireAnswerDate RecordedDo you feel stress - tense, restless, nervous, or anxious, or unable to sleep at night because your mind is troubled all the time - these days?Not at all09/14/2024Exercise Vital SignAnswerDate RecordedOn average, how many days per week do you engage in moderate to strenuous exercise (like a brisk walk)?5 days09/14/2024On average, how many minutes do you engage in exercise at this level?Patient declined 09/14/2024Hunger Vital SignAnswerDate RecordedWithin the past 12 months, you worried that your food would run out before you got the money to buymore.Never true09/14/2024Within the past 12 months, the food you bought just didn't last and you didn't have money to get more.Never true09/14/2024PRAPARE - TransportationAnswerDate RecordedIn the past 12 months, has lack of transportation kept you from medical appointments or from getting medications?No 09/14/2024In the past 12 months, has lack of transportation kept you from meetings, work, or from getting things needed for daily living?No09/14/2024 Housing Stability Vital SignAnswerDate RecordedIn the last 12 months, was there a time when you were not able to pay the mortgage or rent on time?No06/09/2023In the last 12 months, how many places have you lived?In the last 12 months, was there a time when you did not have a steady place to sleep or slept in [place]ter (including now)?No06/09/2023Housing Stability Vital SignAnswerDate RecordedIn the last 12 months, was there a time when you were not able to pay the mortgage or rent on time?No09/14/2024In the past 12 months, how many times have you moved where you were living?t any time in the past 12 months, were you homeless or living in a fci (including now)?No09/14/2024Sex and Gender InformationValueDate RecordedSex Assigned at BirthNot on fileLegal AznHdua1810/22/2022 6:40 PM EDTGender IdentityNot on fileSexual OrientationNot on file Last Filed Vital Signs Vital SignReadingTime TakenCommentsBlood Zumkamgd549/8206 2:13 PM EDT Mqsva6513 2:13 PM PHYEvlaxrtfcjt48.1 ??C (98.7 ??F)11/23/2023 1:41 PM EDTRespiratory Jseu798201/10/2025 2:13 PM EDTOxygen Kotxwkdcuf28%01/10/2025 2:13 PM EDTInhaled Oxygen Concentration--Ajslhv84.5 kg (195 lb)03/27/2025 1:00 PM EDT Hoyxxh462.7 cm (5' 8 )03/27/2025 1:00 PM EDTBody Mass Index29.6508 1:00 PM EDT Plan of Treatment DateTypeDepartmentCare Team (Latest Contact Info)Sclmavjhkog26/29/2025 4:30 PM ESTOffice Visit [facility] [place] [facility] [address] [place] [address] Seven Santa MD [address] [facility] [address] [place] [address] Health MaintenanceDue DateLast DoneCommentsCT Ydzdlzzsgjuw1959FIT 1959FOBT1959 3754Wbmcrkrekxjdm1959Pneumococcal Vaccine: 65+ Years (2 of 2 - PCV)FIT-DNA/08/2020, 10/08/2020OVID- 19 Vaccine (2024- season)/, 11/16/2020, 10/19/2020 Influenza Vaccine (#1)/06/2021, 07/06/2019, 05/19/2018, Additional history xgyxzzUryxbhbvgcv38/05/203104/olorectal Cancer Screening 11/12/2030 Procedures Procedure NamePriorityDate/TimeAssociated DiagnosisCommentsCOLONOSCOPYRoutine 11/12/2020 12:00 PM EDT LAB COLOGUARD?? COLON CANCER RMKSEEYxbxwfa64/01/2021 from Last 3 Months or Most Recently Relevant to Health Maintenance Results * Colonoscopy (11/12/2020 12:00 PM EDT)Anatomical RegionLateralityModality EndoscopySpecimen (Source)Anatomical Location / LateralityCollection Method / VolumeCollection TimeReceived Time11/12/2020 12:00 PM EDT Narrative 11/12/2020 12:00 PM EDT PERFORMED AT [facility] LOCATION:[id number] Procedure Note CONVERSION, GENERIC - 12/24/2022 PERFORMED AT [facility] LOCATION:[id number] Authorizing ProviderResult TypeResult StatusJonathan F DillerENDOSCOPY PROCEDURE ORDERABLESFinal Result * (ABNORMAL) Cologuard?? colon cancer screening (10/08/2020)ComponentValueRef RangeTest MethodAnalysis TimePerformed AtPathologist SignatureCOLOGUARD RESULT REPORTABLEPositive(A)Not ApplicableNOMS LEGACY EXTERNAL LABComment: It is recommended that a positive Cologuard [...] individuals at average risk for colorectal cancer whowere screened with both Cologuard and colonoscopy. (Table 3, Anila Louise al, N Engl J Med 2014;370(14):3179-3812.) The normal value (reference range) for this assay is negative. TEST TYPE: Composite algorithmic analysis of stool DNA-biomarkers with hemoglobin immunoassay. ??Quantitative values of individual biomarkers are not reportable and are not associated with individualbiomarker result reference ranges. PRECAUTIONS AND LIMITATIONS: Cologuard is intended for colorectal cancer screening of adults of either sex, 45 years or older, who are at average-risk for colorectal cancer (CRC). Cologuard has been approved for use by the U.S. FDA. Cologuard may produce a false negative or false positive result. Anegative Cologuard test result does not guarantee the absence of CRC or advanced adenoma (pre-cancer). Patients with a negative Cologuard test result should be advised to continue participating in a colorectal cancer screening program. The screening interval for Cologuard is currently recommended at an interval of every 3 years by the [place] [employer] and U.S. Multi-Society Task Force. A false positive result occurs when Cologuard produces a positive result, even though a colonoscopy maynot find colorectal cancer or precancerous polyps. The [...] can be accessed at the following location: www.[employer]/results. Additional description of the Cologuard test process, warnings and precautions can be found at www.cologuardtest.com. Rx only. Specimen (Source)Anatomical Location / LateralityCollection Method / Volume Collection TimeReceived Time10/08/2020 Narrative Authorizing ProviderResult TypeResult StatusJonatwendy Sol MOLECULAR DIAGNOSTICS ORDERABLESFinal ResultPerforming OrganizationAddressCity/State/ZIP CodePhone Number [facility] from Last 3 Months or Most Recently Relevant to Health Maintenance Insurance Care Teams Team MemberRelationshipSpecialtyStart DateEnd Date Seven Santa MD [address] [place] [address] PCP - GeneralInternal Medicine12/16/22
--- OUTSIDE RECORDS SUMMARY | 2025-07-26 08:00 | XMS_ITS | Clinical Summary ---
Author Organization [facility] Address [address], [address] [place] [address] Care Team Providers Care Pattern Mechanic Name Role Phone Sanjiv Mast DP Primary Care Provider Allergies Active AllergyReactionsCriticalityNoted FlhhCuhtudexHzvrpeqcnhi70/25/2019 Medications MedicationSigDispense QuantityRefillsLast FilledStart DateEnd DateStatus celecoxib (CELEBREX) 100 MG capsule Take 1 capsule by mouth 2 times daily 60 capsule 01/15/2018Active cyclobenzaprine (FLEXERIL) 10 MG tablet Take 5 mg by mouth 3 times daily as needed for Muscle spasmsActive Social History Tobacco UseTypesPacks/DayYears UsedDateSmoking Tobacco: NeverSmokeless Tobacco: NeverSex and Gender InformationValueDate RecordedSex Assigned at BirthNot on fileLegal FemKjeg5401/19/2017 3:59 PM EDTGender IdentityNot on fileSexual OrientationNot on file Last Filed Vital Signs Vital SignReadingTime TakenCommentsBlood Pressure--Pulse--Dspsqwyokyu78.4 ??C (97.5 ??F)10/31/2020 8:05 AM EDTRespiratory Rate--Oxygen Saturation--Inhaled Oxygen Concentration--Ovucce51 kg (205 lb)10/31/2020 8:05 AM HMSUrpklw591.7 cm (5' 8 )10/31/2020 8:05 AM EDTBody Mass Index31.17010/31/2020 8:05 AM EDT Plan of Treatment Not on file Insurance Care Teams Team MemberRelationshipSpecialtyStart DateEnd Date Sanjvi Mast DPM [address] [place] [address] PCP - GeneralPodiatry01/19/17
--- OUTSIDE RECORDS SUMMARY | 2025-07-26 08:00 | XMS_ITS | Clinical Summary ---
Author Organization [facility] Address [address] [place] [address] Care Team Providers Care Hop Trainer Name Role Phone Seven Santa MD Primary Care Provider [phone] Allergies Active AllergyReactionsCriticalityNoted DateCommentsGabapentinGI intolerance 12/25/2021 sleep paralysis PenicillinsRash,ZenhvndElw22/25/2019 Medications MedicationSigDispense QuantityRefillsLast FilledStart DateEnd DateStatus alpha lipoic acid 600 mg capsule 600 mg.07/24/2024ctive celecoxib (CeleBREX) 200 mg capsule Take 1 capsule by mouth twice a day.10/04/2020ctive cholecalciferol (Vitamin D-3) 25 MCG (1000 UT) capsule 1 capsule.Active levothyroxine (Synthroid, Levoxyl) 137 mcg tablet Take 137 mcg by mouth before breakfast.11/08/2020ctive mzdcp-hc-8-rgp-vxz-lhxrpyu-ast (krill oil) 1,151-439-16-80 mg capsule Take 2,000 mg by mouth in the morning.Active cyanocobalamin (Vitamin B-12) 500 mcg tablet Take 500 mcg by mouth in the morning.Active cetirizine-pseudoephedrine (ZyrTEC-D) 5-120 mg 12 hr tablet Take 1 tablet by mouth if needed at bedtime for allergies.Active atorvastatin (Lipitor) 40 mg tablet Indications:Abnormal cardiovascular stress testTake 1 tablet (40 mg) by mouth in the morning. 30 tablet /5Active Active Problems ProblemNoted DateDiagnosed DateDyspnea on /05/2025bnormal cardiovascular stress test03/14/2025neurysm of ascending aorta without rupture 02/08/2025 Overview (02/21/2025): 4.1 cm on 01/2025 ECHO Aortic stenosis, mild02/08/2025Nonrheumatic tricuspid valve regurgitation 02/08/2025omplication of ventilation /13/2024Abnormal gait06/08/2023 Acquired nyawolywwzncgj80/30/2023Cervical radiculopathy due to degenerative joint disease of spine06/08/2023ontinuous positive airway pressure dependent 06/08/2023egeneration of lumbar intervertebral disc06/08/2023ifficulty walking 06/08/2023Left inguinal yxanxr9606/08/2023Leg length iwqopmprrj27/30/2023Mixed wjhcjstwagzcag54/30/2023Other chronic pain3Piriformis syndrome of left side06/08/2023Sciatica of left side06/08/2023ost traumatic stress disorder (PTSD)06/08/2023Facet syndrome, tacrwk8502/24/2022Lumbosacral spondylosis without /18/2022Radiculopathy, lumbosacral lwuwmf662Obstructive sleep apnea arvjzsqt70/26/2021 Overview (02/21/2025): Added automatically from request for surgery [id number] Diverticulosis large intestine w/o perforation or abscess w/o /12/2021 Hyperplastic polyp of sigmoid colon11/19/2020ositive colorectal cancer screening using Cologuard test10/25/2020 Family History Medical HistoryRelationNameCommentsCABGFatherCoronary artery diseaseFather RelationNameStatusCommentsFather Social History Tobacco UseTypesPacks/DayYears UsedDateSmoking Tobacco: NeverSmokeless Tobacco: Never Tobacco Cessation:Counseling Given: Not Answered Alcohol UseStandard Drinks/WeekCommentsYes0 (1 standard drink = 0.6 oz pure alcohol)weekends in summerSex and Gender InformationValueDate RecordedSex Assigned at DtvccOwvy76/09/2025 11:52 AM EDTLegal XbrYfko0502/09/2025 4:16 PM EDT Gender GabintgcUhfm52/09/2025 11:52 AM EDTSexual OrientationHeterosexual or Kmzfhfmc28/09/2025 11:52 AM EDT Last Filed Vital Signs Vital SignReadingTime TakenCommentsBlood Qojuntnn497/9508 11:15 AM EDT Mxgde7290 11:15 AM EDTTemperature--Respiratory Uufv4585 11:15 AM EDTOxygen Lxiznrwxhp34%04/06/2025 11:15 AM EDTInhaled Oxygen Concentration-- Ypjbfx24.6 kg (191 lb)02/21/2025 3:15 PM WFANsfaym915.7 cm (5' 8 )02/21/2025 3:15 PM EDTBody Mass Index29.04002/21/2025 3:15 PM EDT Plan of Treatment DateTypeDepartmentCare Team (Latest Contact Info)Naptxcupzye55/11/2026 9:00 AM ESTOffice Visit [facility] [address] [place] [address] Angel Miranda MD [address] [facility] [place] [address] Health MaintenanceDue DateLast DoneCommentsCT Zqmdmypyksjs1959FOBT 1959Khilcwkoipwue1959Depression Mhvpjrioi56/15/1971Pneumococcal Vaccine: 50+ Years (2 of 2 - PCV)FIT/08/2020 FIT-DNA/08/2020Fall Risk Nhylecrnz89/15/2024OVID-19 Vaccine ( season)501/, 11/16/2020, 10/19/2020Influenza Vaccine (#1)/06/2021, 07/06/2019, 05/19/2018, Additional history exists Dgxktjlsykw40/05//olorectal Cancer Vtanswshn58/05/2031dult Wdbfnns27/, 09/28/2017, 03/04/2017Zoster VaccinesCompleted 08/21/2019, 07/10/2019, 11/15/2016HIB VaccinesAged OutNo longer eligible based on patient's age to complete this topicHPV VaccinesAged OutNo longer eligible based on patient's age to complete this topicIPV VaccinesAged OutNo longer eligible based on patient's age to complete this topicMeningococcal B Vaccine Aged OutNo longer eligible based on patient's age to complete this topic Meningococcal VaccineAged OutNo longer eligible based on patient's age to complete this topicRotavirus VaccinesAged OutNo longer eligible based on patient's age to complete this topic Insurance [address] [place] [address] Care Teams Team MemberRelationshipSpecialtyStart DateEnd Date Seven Santa MD [address] [facility] [address] [place] [address] PCP - GeneralInternal Medicine02/15/25
--- OUTSIDE RECORDS SUMMARY | 2025-07-26 08:00 | XMS_ITS | Clinical Summary ---
Author Organization [facility] Address [address] [place] [address] Care Team Providers Care Working Manager Name Role Phone Kiet VALDES MD, Seven Antony Primary Care Provider [phone] Allergies Active AllergyReactionsCriticalityNoted DateCommentsGabapentinIntolerance 12/25/2021 sleep paralysis GqfhqwyyzkjCezcyew90/18/2022 Medications MedicationSigDispense QuantityRefillsLast FilledStart DateEnd DateStatus celecoxib (CELEBREX) 200 mg capsule twice daily.10/05/2021ctive levothyroxine (SYNTHROID) 137 mcg tablet TAKE 1 TABLET BY MOUTH EVERY DAY IN THE MORNING ON EMPTY SCANYDI5010/05/2021ctive folic acid/multivit-min/lutein (CENTRUM SILVER ORAL) Take by mouth once daily.Active KRILL OIL ORAL Take 1,000 mg by mouth once daily.Active alpha lipoic acid 600 mg tab Indications:Facet syndrome, lumbar,Radiculopathy, lumbosacral region,History of renal stone,Other hypothyroidismtake 1 tab po every day with food 30 tablet ctive turmeric root extract 500 mg cap Indications:Facet syndrome, lumbar,Radiculopathy, lumbosacral region,History of renal stone,Other hypothyroidismTAKE 1 CAPSULE BY MOUTH TWICE DAILY FOR 7 DAYS,THEN 2 CAPSULES TWICE DAILY IF TOLERATED 120 capsule ctive Active Problems ProblemNoted DateDiagnosed DateFacet syndrome, dlhwky5302/24/2022adiculopathy, lumbosacral fuykgf9002/24/2022Lumbosacral spondylosis without vputtjglmi91/18/2022 Social History Tobacco UseTypesPacks/DayYears UsedDateSmoking Tobacco: NeverSmokeless Tobacco: NeverAlcohol UseStandard Drinks/WeekCommentsNever0 (1 standard drink = 0.6 oz pure alcohol)Area Deprivation IndexAnswerDate RecordedNational Score (1-100), lower number is lower ovpr484901/15/2023State Score (1-10), lower number is lower qykm9463Data from: https://www.neighborhoodatlas.[facility]/. Last address used for [facility] [address]/15/2023Sex and Gender InformationValueDate RecordedSex Assigned at BirthNot on fileLegal SexMale 12/25/2021 10:13 AM EDTGender IdentityNot on fileSexual OrientationNot on file Last Filed Vital Signs Vital SignReadingTime TakenCommentsBlood Emoivmre055/85009/01/2022 9:30 AM EST Bnttt9287 4:06 PM TCQEsqogooqkhd89.3 ??C (97.4 ??F)09/01/2022 9:10 AM ESTRespiratory Cwso877811/27/2022 4:06 PM EDTOxygen Ckprqlavvh47%11/27/2022 4:06 PM EDTInhaled Oxygen Concentration--Afqbko92.5 kg (193 lb)11/27/2022 4:06 PM EDT Height--Body Mass Index-- Plan of Treatment Health MaintenanceDue DateLast DoneCommentsAnxiety Bcpoghklx29/15/1977Depression Bczixudjh40/15/1977Hepatitis C Sksuuijcs34/15/1977CT Pidrgkzbonih58/15/2004 Mttveezmhav43/15/2004Fecal Occult Blood06/24/20048049Fdvhzrcvtdwrc27/15/2004 Pneumococcal Vaccine: 50+ (2 of 2 - PCV)Cologuard (FIT-DNA) /olorectal Cancer Rjydqfojv61/01/2024dvance Directive Yoyuurcfco90/01/2025Covid-19 Vaccine ( season)/, 11/16/2020, 10/19/2020Influenza Vaccine (#1)/2021, 07/06/2019, 05/19/2018, Additional history existsDiabetes Gdgjgehpu29/28/871148/, 01/02/2020Lipid Ijbtcnoxl17/3Prostate Cancer Screening Qcherkbhfe95/06/202811/3DTaP,Tdap,Td Vaccine (4 - Td or Tdap)05/04/2033 05/04/2023, 09/28/2017, 03/04/2017RSV Vaccine (1 - 1-dose 75+ series)2034 Shingrix AwxqtmeNrgbzczub99/12/2020, 07/10/2019, 11/15/2016 Insurance Care Teams Team MemberRelationshipSpecialtyStart DateEnd Date Seven Santa II, MD [address] [place] [address] PCP - GeneralInternal Medicine12/27/21
--- OUTSIDE RECORDS SUMMARY | 2025-07-26 08:00 | XMS_ITS | Clinical Summary ---
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 Name Role Phone Khadar Temple MD Unavailable [phone] Source Comments The following information is NOT included in Care Everywhere downloads:Psychiatric notes, ECG results, Cardiac Rehab notes, Pulmonary Function notes, data from [facility] (includes but not limited toPregnancy data,audiograms, eye exams, pre-surgical evaluation notes, well-child exam data).[facility] Allergies Active AllergyReactionsCriticalityNoted FdwmTncgpsqzYcvaffnypml70/25/2019 Medications MedicationSigDispense QuantityRefillsLast FilledStart DateEnd DateStatus levothyroxine (SYNTHROID) 137 MCG tablet TAKE 1 TABLET BY MOUTH IN THE MORNING on empty lyheyzl2011/08/2020ctive celecoxib (CeleBREX) 200 MG capsule TAKE 1 CAPSULE BY MOUTH TWICE DAILY take with food11/09/2020ctive Active Problems ProblemNoted DateDiagnosed DateOSA (obstructive sleep apnea)12/03/2020 Overview (12/03/2020): Added automatically from request for surgery [id number] Immunizations ImmunizationAdministration DatesNext DueInfluenza, injectable, quadrivalent, preservative (WIY=479)05/20/2021Influenza, intradermal, trivalent, preservative free (IIV3) (XIK=173)05/19/2018,07/08/2017Pneumococcal polysaccharide 23 Valent (PPSV23) (CVX=33)08/20/2016Td (adult), 5 Lf tetanus toxoid, preservative free, adsorbed (WZM=131)09/28/2017Tdap (TLB=230)03/04/2017Zoster Live (ZVL,Shingles) (LAH=737)11/15/2016 Social History Tobacco UseTypesPacks/DayYears UsedDateSmoking Tobacco: NeverSmokeless Tobacco: NeverSex and Gender InformationValueDate RecordedSex Assigned at BirthNot on fileLegal GmlWhjo9410/11/2020 10:26 AM ESTGender IdentityNot on fileSexual OrientationNot on file Last Filed Vital Signs Vital SignReadingTime TakenCommentsBlood Lzkzkeii795/9704 10:15 AM EDT Ycycs3446 10:15 AM RCAHdrztouclgx95.2 ??C (97.2 ??F)01/02/2021 1:38 PM EDTRespiratory Zfup815401/02/2021 1:38 PM EDTOxygen Exafkdvpvj66%12/06/2020 10:15 AM EDTInhaled Oxygen Concentration--Ntmzmv54.1 kg (203 lb)01/02/2021 1:38 PM EDT Kragef249.7 cm (5' 8 )01/02/2021 1:38 PM EDTBody Mass Index30.8701/02/2021 1:38 PM EDT Plan of Treatment Health MaintenanceDue DateLast SkbuUlcqnfehXpkopazzxtr1960Hepatitis C Nsfukanr23/15/1977Hepatitis A (HAV) Vaccine (optional start 19+ years)1978 Zmmzvhebuxt50/15/1994CRC Ggpdwigri72/15/2004Cologuard (Stool DNA)2004FIT 2004Shingles (RZV) Vaccine (2 of 3)01/10//03/2017Pneumococcal Vaccine(s) (50+ yrs) (2 of 2 - PCV)Hepatitis B (HBV) Vaccine (optional start 60+ years)2019COVID-19 Vaccine (4 - season) 501/, 11/16/2020, 10/19/2020Influenza Vaccine (#1)2025 05/20/2021, 05/19/2018, 07/08/2017Tetanus (Td or Tdap) Nhebxhw9809/28/2027 09/28/2017, 03/04/2017RSV vaccine (adult) (1 - 1-dose 75+ series)2034Tdap WeigsnoMgwzxjxyq65/26/2017 Insurance Care Teams Team MemberRelationshipSpecialtyStart DateEnd Date Khadar Temple MD [address] [place] [address] PhysicianOtolaryngology12/14/20
[2025-07-26 10:07] LABS: Cholesterol 205 mg/dL (<=200); HDL Cholesterol 51 mg/dL (40-60); Triglycerides 96 mg/dL (<=150); VLDL CHOLESTEROL 19.2 mg/dL
== END 2025-07-26 07:59 | disposition home or self-care (01) ==
LOC: CARD 07:58
PROVIDERS: PCP Internal Medicine; Visit Provider Internal Medicine Interventional Cardiology
DX: I35.0 Nonrheumatic aortic (valve) stenosis (principal); E78.2 Mixed hyperlipidemia; R06.09 Other forms of dyspnea
CPT/HCPCS: 36415; 80061; 93306